=== PATIENT | male | born 1985 | race Caucasian/White ===

== ENCOUNTER 2020-08-08 14:37 | Emergency (ER) | payer MEDICAID, SELFPAY ==
[2020-08-08 14:51] VITALS: BP 121/59; PULSE 50; RESP 16; TEMP 36.6; O2SAT 100; BMI 30.3
[2020-08-08 15:10] VITALS: BP 113/60; PULSE 77; RESP 16; TEMP 36.8; O2SAT 96
[2020-08-08] MEDS: Ketorolac Tromethamine 15 MG/ML VIAL 30 MG IV (15:38)
[2020-08-08] MEDS: Metoclopramide HCl 10 MG/2 ML VIAL IVPUSH (15:40)
[2020-08-08] MEDS: diphenhydrAMINE HCL 50 MG/ML VIAL IVPUSH (15:40)
[2020-08-08] MEDS: 0.9 % Sodium Chloride 1,000 ML 999 ML IVCONT (15:43)
[2020-08-08 15:49] LABS: Basophils Percent Auto 0.2 % (0-2); Eosinophils Percent Auto 0.1 % (0-4); Hematocrit 43.8 % (42-52); Hemoglobin 14.3 g/dl (14.0-18.0); Imm Gran Abs Auto 0.01 X10*3/uL (0.00-0.03); Imm Gran Pct Auto 0.1 % (0.0-0.4); Lymphocytes Absolute Auto 0.7 X10*3/uL (1.2-4.9); Lymphocytes Percent Auto 7.7 % (20-40); MANUAL DIFF FLAG SCAN; Mean Corpuscular HGB Conc 32.6 g/dl (31.0-36.0); Mean Corpuscular Hemoglobin 27.9 pg (27.0-33.0); Mean Corpuscular Volume 85.5 fL (80-98); Monocytes Absolute Auto 0.2 X10*3/uL (0.1-1.2); Monocytes Percent Auto 2.5 % (2-11); Neutrophils Absolute Auto 7.9 X10*3/uL (2.0-8.3); Neutrophils Percent Auto 89.4 % (45-73); Platelet Count 222 X10*3/uL (160-400); Red Blood Count 5.12 X10*6/uL (4.60-5.80); Red Cell Distribution Width 13.9 % (11.0-16.0); SCAN SMEAR FLAG 1; White Blood Count 8.9 X10*3/uL (4.8-10.8)
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
[2020-08-08 15:56] LABS: INTERNATIONAL NORM RATIO 1.1 (0.9-1.1)
[2020-08-08 16:07] LABS: SLIDE REVIEW VERIFIED
[2020-08-08 16:14] LABS: Alanine Aminotransferase 16 U/L (0-40); Albumin Level 4.4 g/dL (3.5-5.0); Alkaline Phosphatase 50 U/L (39-117); Anion Gap 15 (12-20); Aspartate Amino Transferase 16 U/L (5-37); Bilirubin Total 0.6 mg/dL (0.0-1.0); Blood Urea Nitrogen 7 mg/dL (9-16); Calcium 9.5 mg/dL (8.4-10.2); Carbon Dioxide 24 mmol/L (22-29); Chloride 105 mmol/L (96-108); Creatinine Clr Calc Pharmacy 154.1; Estimated Glomerular Filt Rate > 60; Glucose Random 117 mg/dL (60-115); Magnesium 1.7 mg/dL (1.6-2.6); Potassium 3.6 mmol/L (3.3-5.1); Sodium 140 mmol/L (135-145); Total Protein 7.8 g/dL (6.5-8.0)
[2020-08-08 17:44] LABS: Glucose Urine UA NEG (NEG); Leukocyte Esterase Urine NEG (NEG); Nitrite Urine NEG (NEG); PH 6.5 (5.0-8.0); Urine Blood NEG (NEG); Urine Ketones 15 MG/DL (NEG); Urine Protein NEG (NEG-TRACE)
[2020-08-08 17:49] LABS: Appearance Urine CLEAR; Color Urine YELLOW
== END 2020-08-08 17:58 | disposition home or self-care (01) ==
PROVIDERS: Physician Assistant Medical; Emergency Provider Emergency Medicine; PCP Family Medicine
DX: G43.909 Migraine, unspecified, not intractable, without status migrainosus (principal); R11.2 Nausea with vomiting, unspecified; R19.7 Diarrhea, unspecified; Z79.899 Other long term (current) drug therapy
CPT/HCPCS: 36415; 80053; 81003; 83735; 85025; 85610; 96365; 96375; 99285; J1200; J1885; J2765

== ENCOUNTER 2021-01-17 00:24 | Emergency (ER) | payer MEDICAID, SELFPAY ==
[2021-01-17 00:37] VITALS: BP 142/80; PULSE 82; RESP 18; TEMP 36.7; O2SAT 100; BMI 28.8
--- NOTE | 2021-01-17 00:41 | ED_ITS ---
HPI - General Adult General Chief complaint: Nausea/Vomiting/Diarrhea Stated complaint: N/V X3 HOURS WITH FLU LIKE SYMPTOMS Time Seen by Provider: 01/17/21 00:36 Source: patient and EMS Mode of arrival: EMS Limitations: no limitations History of Present Illness HPI narrative: Patient comes emergency room complaining of 3 hours of flu-like symptoms, including generalized malaise , stuffy nose. Patient states that he took methadone around 8 in the morning, had 1 episode of vomiting at 22:00, states he thinks he threw up his methadone. Patient complaining of a headache for the last 2 hours, states he has not taken ibuprofen or Tylenol. Related Data Previous Rx's Medication Instructions Recorded diphenhydramine HCl 25 mg capsule 25 mg PO TID PRN #14 cap 08/08/20 (Benadryl) ketorolac 10 mg tablet 10 mg PO Q8H PRN #10 tab 08/08/20 metoclopramide HCl 10 mg tablet 10 mg PO Q6H PRN #15 tab 08/08/20 (Reglan) acetaminophen 650 mg 650 mg PO Q8H PRN #20 tab 01/17/21 tablet,extended release (Tylenol 8 Hour) metoclopramide HCl 5 mg tablet 5 mg PO BID PRN #10 tab 01/17/21 (Reglan) sumatriptan succinate 50 mg tablet 50 mg PO Q2-4H PRN #10 tab 01/17/21 Allergies Allergy/AdvReac Type Severity Reaction Status Date / Time No Known Allergies Allergy Verified 01/17/21 00:45 [No Known Allergies*] Review of Systems Review of Systems: Constitutional : No Weight loss, no fever, complaining of fatigue and generalized malaise ENT/Mouth : No Hearing loss, No Ear Pain, No Nasal Congestion, No Sinus Pain, No Hoarseness, No sore throat, No Rhinorrhea, No Swallowing Difficulty Eyes: No Eye Pain, No Swelling, No Redness, No Foreign Body, No Discharge, No Vision Changes Cardiovascular : No Chest Pain, No SOB, No Dyspnea on Exertion, No Orthopnea, No Edema, No Palpitations Respiratory : No Cough, No Sputum, No Wheezing, No Smoke Exposure, No Dyspnea Gastrointestinal : Of nausea and 1 episode of vomiting No Diarrhea, No Constipation, No abdominal Pain, No Hematochezia, No Melena Genitourinary : no irregular bleeding, No Dysuria, No Urinary Frequency, No Hematuria, No Urinary Incontinence, No Urgency, No Flank Pain, No Urinary Flow Changes, No Hesitancy Musculoskeletal : No joint pain, complaining of diffuse Myalgias, No Joint Swelling Skin : No Skin Lesions, No rash Neuro : No Weakness, No Numbness, No Paresthesias, No Loss of Consciousness, No Dizziness, complaining of a frontal Headache for 2 hours Psych : No Anxiety/Panic, No Depression, No SI/HI/AH/VH, No Social Issues, Heme/Lymph: No Bruising, No Bleeding,No Lymphadenopathy Endocrine : No Polyuria, No Polydipsia, No Temperature Intolerance [facility] Past Medical History Medical History (Updated 01/17/21 @ 01:22 by Yen Madrigal MD) Migraines No known health problems Social History Social History Alcohol intake: never Substance Use Type: Marijuana Advance Directives: No Advance Directives Information Provided: No Physical Exam Vital Signs: Vital Signs: Last Vital Signs Temp 98.0 F 01/17/21 00:37 Pulse 82 01/17/21 00:37 Resp 18 01/17/21 00:37 BP 142/80 H 01/17/21 00:37 Pulse Ox 100 01/17/21 00:37 Body Mass Index 28.8 Const: Other: Appearance: Alert. Oriented X3. No acute distress. Eyes: Pupils equal, round and reactive to light. ENT: Pharynx normal. Neck: Normal inspection. Neck supple. No lymph nodes noted. No crepitus CVS: Normal heart rate and rhythm. Pulses normal. Normal S1 and S2 Respiratory: No respiratory distress. Breath sounds normal. No Wheezing. No rales Abdomen: Soft and nontender. No rigidity. No distention. good BS x4 Skin: Skin warm and dry. Normal skin color. Normal skin turgor. Extremities: No lower extremity edema. No Lacerations. No Rash Neuro: Oriented X 3. No motor deficit. No sensory deficit. Moving all extermities. No slurred speech. Course Course Course Narrative: COVID test negative. Patient states that he used to take medication for migraines but does not remember what he used to take. Patient feeling better after 1 IM shot of Toradol and Phenergan. Medical Decision Making Lab Data Labs: Lab Results 01/17/21 Range/Units 00:51 COVID-19 (GIO) Negative (Negative) COVID-19 Clin Com See Note Discharge Plan Discharge Clinical Impression: Acute viral syndrome Headache, migraine Qualifiers: Migraine type: unspecified Intractability: not intractable Patient Disposition: Home, Self-Care Instructions: Migraine Headache (ED), Viral Syndrome (ED) Additional Instructions: Please follow-up with your primary care physician tomorrow. If you have any worsening or new symptoms, please return to the emergency room or call 911 Prescriptions: New metoclopramide HCl [Reglan] 5 mg tablet 5 mg PO BID PRN (Reason: nausea and vomiting) Qty: 10 RF: 0 sumatriptan succinate 50 mg tablet 50 mg PO Q2-4H PRN (Reason: migraine headache) Qty: 10 RF: 0 acetaminophen [Tylenol 8 Hour] 650 mg tablet extended release 650 mg PO Q8H PRN (Reason: pain) Qty: 20 RF: 0 No Action diphenhydramine HCl [Benadryl] 25 mg capsule 25 mg PO TID PRN (Reason: sleep) Qty: 14 RF: 0 ketorolac 10 mg tablet 10 mg PO Q8H PRN (Reason: pain) Qty: 10 RF: 0 metoclopramide HCl [Reglan] 10 mg tablet 10 mg PO Q6H PRN (Reason: nausea and vomiting) Qty: 15 RF: 0
[2021-01-17] MEDS: Metoclopramide HCl 10 MG/2 ML VIAL IM (01:10)
[2021-01-17] MEDS: Ketorolac Tromethamine 60 MG/2 ML VIAL IM (01:11)
[2021-01-17 01:12] LABS: COVID-19 Test Negative (Negative); IDNOW Serial# 9DD0AD1C
== END 2021-01-17 02:19 | disposition home or self-care (01) ==
PROVIDERS: Emergency Provider Emergency Medicine
DX: B34.9 Viral infection, unspecified (principal); G43.009 Migraine without aura, not intractable, without status migrainosus; Z20.822 Contact with and (suspected) exposure to COVID-19
CPT/HCPCS: 36415; 87635; 96372; 99283; 99284; J1885; J2765

== ENCOUNTER 2021-06-04 12:05 | Emergency (ER) | payer MEDICAID, SELFPAY ==
[2021-06-04 12:36] VITALS: BP 105/71; PULSE 79; RESP 17; O2SAT 99; BMI 29.0
[2021-06-04 13:04] LABS: COVID-19 Test Negative (Negative)
== END 2021-06-04 15:24 | disposition left against medical advice (07) ==
PROVIDERS: Emergency Provider Emergency Medicine; PCP Family Medicine
DX: R11.2 Nausea with vomiting, unspecified (principal); R19.7 Diarrhea, unspecified
CPT/HCPCS: 87635; 99282; 99283

== ENCOUNTER 2021-10-18 17:09 | Emergency (ER) | payer MEDICAID, SELFPAY ==
[2021-10-18 19:04] VITALS: BP 116/76; PULSE 50; RESP 16; TEMP 35.5; O2SAT 98; BMI 29.4
--- NOTE | 2021-10-18 19:38 | ED.MALEGU ---
HPI - Male Genitourinary General Chief complaint: Urogenital-Male Stated complaint: STD Time Seen by Provider: 10/18/21 19:31 Source: patient Mode of arrival: ambulatory Limitations: no limitations History of Present Illness HPI Narrative: 36-year-old male presents to the ER for evaluation of a possible STD exposure. He reports he had unprotected sex 2 weeks ago and just heard that this partner may have had a sexually transmitted infection, through his girlfriend. He believes that his girlfriend is just upset and is telling him that he was exposed to herpes. He currently has no symptoms. He would like to be tested and treated for possible STIs. No other complaints or concerns at this time. MD Complaint: possible STD exposure Onset (ago): unknown Relieving factors: none Exacerbating factors: none Associated symptoms: Reports denies other symptoms Related Data Sexually active: Yes Previous Rx's Medication Instructions Recorded diphenhydramine HCl 25 mg capsule 25 mg PO TID PRN sleep #14 caps 08/08/20 (Benadryl) ketorolac 10 mg tablet 10 mg PO Q8H PRN pain #10 tabs 08/08/20 metoclopramide HCl 10 mg tablet 10 mg PO Q6H PRN nausea and 08/08/20 (Reglan) vomiting #15 tabs acetaminophen 650 mg 650 mg PO Q8H PRN pain #20 tabs 01/17/21 tablet,extended release (Tylenol 8 Hour) metoclopramide HCl 5 mg tablet 5 mg PO BID PRN nausea and 01/17/21 (Reglan) vomiting #10 tabs sumatriptan succinate 50 mg tablet 50 mg PO Q2-4H PRN migraine 01/17/21 headache #10 tabs Allergies Allergy/AdvReac Type Severity Reaction Status Date / Time No Known Allergies Allergy Verified 01/17/21 00:45 [No Known Allergies*] Review of Systems Review of Systems: Constitutional: No Fever, No Chills ENT/Mouth: No sore throat, No Rhinorrhea, No Swallowing Difficulty Eyes: No Eye Pain, No Swelling, No Redness Cardiovascular: No Chest Pain, No SOB Respiratory: No Cough Gastrointestinal: No Nausea, No Vomiting, No Diarrhea, No abdominal Pain Genitourinary: No Dysuria, No Urinary Frequency, No Hematuria, No genital lesions Musculoskeletal: No joint pain, No Myalgias Skin: No Skin Lesions, No rash Neuro: No Weakness, No Numbness, No Dizziness, No Headache : no penile lesions, rashes PMFSH Past Medical History Medical History (Updated 10/18/21 @ 20:02 by VASU Briseno) Migraines No known health problems Social History Social History Alcohol intake: never Substance Use Type: Marijuana Advance Directives: No Advance Directives Information Provided: No Physical Exam Vital Signs: Vital Signs: Last Vital Signs Temp 96 F L 10/18/21 19:04 Pulse 50 10/18/21 19:04 Resp 16 10/18/21 19:04 BP 116/76 10/18/21 19:04 Pulse Ox 98 10/18/21 19:04 O2 Del Method 10/18/21 19:04 BMI result Body Mass Index 29.4 Appearance: Alert. Oriented X3. No acute distress. Eyes: Pupils equal, round and reactive to light. ENT: Pharynx normal. Neck: Normal inspection. Neck supple. CVS: Normal heart rate and rhythm. Pulses normal. S1S2 regular. Respiratory: No respiratory distress. Breath sounds normal. Lungs clear to auscultation bilaterally. Abdomen: Soft and nontender. +BS x4 Skin: Skin warm and dry. Normal skin color. Normal skin turgor. No rashes. Extremities: No lower extremity edema. : uncircumsized male with no penile lesions, rashes. No urethral drainage from the meatus. No testicular pain, swelling or lesions. Neuro: Oriented X 3. No motor deficit. No sensory deficit. Course Course Course Narrative: [id number] presents to the ED today due to ?STI exposure. He states that he has sexual intercourse 2 weeks ago with another woman, who he was told by his current partner that she has herpes. Patient is asymptomatic at this time. Dirty catch urine collected for GC/Chlamydia testing. Patient declines prophylactic tx at this time as he is asymptomatic. Informed him that we will call with any abnormal results. Patient given tap[facility] numbers if he wants to get additional testing. Patient understands and agrees with this plan. Critical Care Time Critical Care Time Critical Care Time: No Discharge Plan Discharge Clinical Impression: Possible exposure to STD Patient Disposition: Home, Self-Care Instructions: Sexually Transmitted Diseases (ED), Safe Sex Practices (ED) Additional Instructions: At this time there is no evidence of active herpes. If your Gonorrhea or Chlamydia test comes back positive we will call you and start you on treatment. Recommend following up with a local [facility] for comprehensive sexually transmitted infection evaluation. If you develop any symptoms of STD call your doctor or come back to the ER for further evaluation. Prescriptions: No Action diphenhydramine HCl [Benadryl] 25 mg capsule 25 mg PO TID PRN (Reason: sleep) Qty: 14 0RF ketorolac 10 mg tablet 10 mg PO Q8H PRN (Reason: pain) Qty: 10 0RF Rx Instructions: Given 1st dose in the ED metoclopramide HCl [Reglan] 10 mg tablet 10 mg PO Q6H PRN (Reason: nausea and vomiting) Qty: 15 0RF metoclopramide HCl [Reglan] 5 mg tablet 5 mg PO BID PRN (Reason: nausea and vomiting) Qty: 10 0RF sumatriptan succinate 50 mg tablet 50 mg PO Q2-4H PRN (Reason: migraine headache) Qty: 10 0RF Rx Instructions: do not exceed 4 doses per 24 hrs acetaminophen [Tylenol 8 Hour] 650 mg tablet extended release 650 mg PO Q8H PRN (Reason: pain) Qty: 20 0RF Interventions: ED Discharge Assessment Last Done: 10/18/21 20:03 Discharge Date/Time: 10/18/21 20:03
[2021-10-19 11:53] LABS: CT PCR NOT DETECTED (Not Detect.); NG PCR NOT DETECTED (Not Detect.)
== END 2021-10-18 20:03 | disposition home or self-care (01) ==
PROVIDERS: Emergency Provider Emergency Medicine; PCP Family Medicine
DX: Z20.2 Contact with and (suspected) exposure to infections with a predominantly sexual mode of transmission (principal)
CPT/HCPCS: 87491; 87591; 99282; 99283

== ENCOUNTER 2021-11-21 06:33 | Emergency (ER) | payer MEDICAID, SELFPAY ==
[2021-11-21 06:48] VITALS: BP 122/71; PULSE 70; RESP 14; O2SAT 97; BMI 28.8
[2021-11-21 06:59] VITALS: BP 125/89; PULSE 78; RESP 18; O2SAT 96
--- NOTE | 2021-11-21 07:07 | ED_ITS ---
HPI - Nausea/Vomiting/Diarrhea General Chief complaint: Nausea/Vomiting/Diarrhea Stated complaint: vomiting, cough Time Seen by Provider: 11/21/21 07:06 Source: patient Mode of arrival: ambulatory Limitations: no limitations History of Present Illness HPI Narrative: 36-year-old male came in for evaluation of abdominal pain, vomiting, coughing, headache. Patient's symptoms started since yesterday after eating a sandwich at the [employer] started to have dry coughing that led to nausea and vomiting, patient had a 1 time loose diarrhea, patient is also complaining of headache and dry cough. No sick contact, no exposure to sick contacts, no recent travel, last vomit was this morning patient started feeling better but patient is concerned of dehydration. Related Data Previous Rx's Medication Instructions Recorded diphenhydramine HCl 25 mg capsule 25 mg PO TID PRN sleep #14 caps 08/08/20 (Benadryl) ketorolac 10 mg tablet 10 mg PO Q8H PRN pain #10 tabs 08/08/20 metoclopramide HCl 10 mg tablet 10 mg PO Q6H PRN nausea and 08/08/20 (Reglan) vomiting #15 tabs acetaminophen 650 mg 650 mg PO Q8H PRN pain #20 tabs 01/17/21 tablet,extended release (Tylenol 8 Hour) metoclopramide HCl 5 mg tablet 5 mg PO BID PRN nausea and 01/17/21 (Reglan) vomiting #10 tabs sumatriptan succinate 50 mg tablet 50 mg PO Q2-4H PRN migraine 01/17/21 headache #10 tabs Allergies Allergy/AdvReac Type Severity Reaction Status Date / Time No Known Allergies Allergy Verified 01/17/21 00:45 [No Known Allergies*] Review of Systems Review of Systems: All other systems are reviewed and are negative Constitutional: Reports as per HPI and Reports no additional constitutional complaints Eyes: Reports as per HPI and Reports no additional eye complaints Reports system reviewed and no additional complaints, except as documented Cardiovascular: Reports as per HPI and Reports no additional cardiovascular complaints Respiratory: Reports as per HPI and Reports no additional respiratory complaints Gastrointestinal: Reports as per HPI and Reports no additional gastrointestinal complaints Genitourinary: Reports no additional female genitourinary complaints Musculoskeletal: Reports no additional musculoskeletal complaints Skin/Breast: Reports system reviewed and no additional complaints, except as docu Psychiatric: Reports no additional psychiatric complaints Endocrine: Reports no additional endocrine complaints Hematologic/Lymphatic: Reports no additional hematologic/lymphatic complaints Allergic/Immunologic: Reports no additional allergic/immunologic complaints Reports system reviewed and no additional complaints, except as documented and Reports Abnormal speech present [facility] Past Medical History Medical History Migraines No known health problems Social History Social History Alcohol intake: never Patient Tobacco Use Status: Current everyday Tobacco user Use of substances other than those prescribed or required for medical reasons: No Substance Use Type: Marijuana Advance Directives: No Advance Directives Information Provided: No Physical Exam Vital Signs: Vital Signs: Last Vital Signs Pulse 78 11/21/21 06:59 Resp 18 11/21/21 06:59 BP 125/89 11/21/21 06:59 Pulse Ox 96 11/21/21 06:59 O2 Del Method 11/21/21 06:59 BMI result Body Mass Index 28.8 Vital signs have been reviewed as appeared to be correct. Blood pressure normal. Heart rate normal. Respiration rate normal. Temperature normal. Oxygen saturation normal. Appearance: Alert. Oriented X3. No acute distress. Head: Normal external exam. Normocephalic. Atraumatic. No Cheney signs noted. No raccoon eyes noted Eyes: PERRLA. EOMI. Conjunctiva and sclera normal. Eyelids normal. ENT: TM's Normal. Pharynx normal. Uvula midline. Moist mucous membranes. No trismus noted. No drooling noted. No muffled voice noted. Neck: Normal inspection. Neck supple. FROM. No adenopathy. Thyroid Normal. No meningeal signs. No neck mass noted. CVS: Normal heart rate and rhythm. Heart sound normal. No murmurs noted. Pulses normal throughout. Respiratory: No respiratory distress. Painless inspiration. Breath sounds normal. No wheezes/rales/rhonchi noted. Chest nontender. No accessory muscle usage noted or decreased air movement noted. Abdomen: Soft and nontender. Bowel sounds normal in all 4 quadrants. No distention noted. No organomegaly noted. No visible injury noted. Back: No CVA tenderness. Full range of motion noted. Skin: Skin warm and dry. Normal skin color. Normal skin turgor. No rashes/lesions/lacerations noted. Extremities: No lower extremity edema. Extremities exhibit normal range of motion. Extremities nontender. Neuro: Oriented X 3. Cranial nerve exam: II-XII are grossly intact No motor deficit. No sensory deficit. Reflexes normal. Course Course Course Narrative: 36-year-old male came in for evaluation of epigastric pain after eating she is further from [facility], patient's symptoms is improving in the emergency department, able to tolerate p.o. intake, labs and physical exam is nonrevealing. Repeat abdominal exam shows no tenderness, no guarding, no rebound tenderness. Patient was instructed to return if symptoms is worsening. MDM - Nausea/Vomiting/Diarrhea Lab Data Attestation: I reviewed the patient's lab results. Result diagrams: 11/21/21 07:54 11/21/21 07:54 Labs: Lab Results 11/21/21 11/21/21 11/21/21 Range/Units 07:24 07:54 07:54 WBC 5.4 (4.8-10.8) X10*3/uL RBC 4.20 L (4.60-5.80) X10*6/uL Hgb 12.0 L (14.0-18.0) g/dl Hct 35.3 L (42.0-52.0) % MCV 84.0 (80.0-98.0) fL MCH 28.6 (27.0-33.0) pg MCHC 34.0 (31.0-36.0) g/dl RDW 13.5 (11.0-16.0) % Plt Count 182 (160-400) X10*3/uL MPV 9.5 (9.4-12.4) fL Immature Gran % (Auto) 0.2 (0.0-0.4) % Neut % (Auto) 57.0 (45-73) % Lymph % (Auto) 32.1 (20-40) % [place] % (Auto) 8.2 (2-11) % Eos % (Auto) 1.9 (0-4) % Baso % (Auto) 0.6 (0-2) % Lymph # (Auto) 1.7 (1.2-4.9) X10*3/uL [place] # (Auto) 0.4 (0.1-1.2) X10*3/uL Eos # (Auto) 0.1 (0.0-0.4) X10*3/uL Baso # (Auto) 0.0 (0.0-0.2) X10*3/uL Abs Immat Gran (auto) 0.01 (0.00-0.03) X10*3/uL Absolute Neuts (auto) 3.1 (2.0-8.3) x10*3/uL Absolute Nucleated RBC 0.000 (0.0-0.012) X10*3/uL Nucleated RBC % (auto) 0.0 (0.0-0.2) /100WBC Sodium 141 (135-145) mmol/L Potassium 4.0 (3.3-5.1) mmol/L Chloride 106 (96-108) mmol/L Carbon Dioxide 27 (22-29) mmol/L Anion Gap 12 (12-20) BUN 9 (9-16) mg/dL Creatinine 0.84 (0.5-1.4) mg/dL Estim Creat Clear Calc 147.5 Estimated GFR > 60 Random Glucose 97 (60-115) mg/dL Calcium 9.1 (8.4-10.2) mg/dL Total Bilirubin 0.3 (0.0-1.0) mg/dL Direct Bilirubin < 0.2 (0.0-0.5) mg/dL AST 19 (5-37) U/L ALT 18 (0-40) U/L Alkaline Phosphatase 46 (39-117) U/L Total Protein 6.6 (6.5-8.0) g/dL Albumin 3.7 (3.5-5.0) g/dL Lipase 19 (8-78) U/L Urine Color Dark Yellow Urine Appearance Clear Urine pH 6.0 (5.0-8.0) Ur Specific [place] >= 1.030 H (1.005-1.025) Urine Protein Negative (Neg-Trace) mg/dL Urine Glucose (UA) Negative (Negative) mg/dL Urine Ketones Trace (Negative) mg/dL Urine Blood Negative (Negative) Urine Nitrite Negative (Negative) Ur Leukocyte Esterase Negative (Negative) Influenza Type A (PCR) (Negative) Influenza Type B (PCR) (Negative) RSV RNA Qual (PCR) (Negative) SARS-CoV-2 RNA (RT-PCR) (Negative) 11/21/21 Range/Units 07:54 WBC (4.8-10.8) X10*3/uL RBC (4.60-5.80) X10*6/uL Hgb (14.0-18.0) g/dl Hct (42.0-52.0) % MCV (80.0-98.0) fL MCH (27.0-33.0) pg MCHC (31.0-36.0) g/dl RDW (11.0-16.0) % Plt Count (160-400) X10*3/uL MPV (9.4-12.4) fL Immature Gran % (Auto) (0.0-0.4) % Neut % (Auto) (45-73) % Lymph % (Auto) (20-40) % [place] % (Auto) (2-11) % Eos % (Auto) (0-4) % Baso % (Auto) (0-2) % Lymph # (Auto) (1.2-4.9) X10*3/uL [place] # (Auto) (0.1-1.2) X10*3/uL Eos # (Auto) (0.0-0.4) X10*3/uL Baso # (Auto) (0.0-0.2) X10*3/uL Abs Immat Gran (auto) (0.00-0.03) X10*3/uL Absolute Neuts (auto) (2.0-8.3) x10*3/uL Absolute Nucleated RBC (0.0-0.012) X10*3/uL Nucleated RBC % (auto) (0.0-0.2) /100WBC Sodium (135-145) mmol/L Potassium (3.3-5.1) mmol/L Chloride (96-108) mmol/L Carbon Dioxide (22-29) mmol/L Anion Gap (12-20) BUN (9-16) mg/dL Creatinine (0.5-1.4) mg/dL Estim Creat Clear Calc Estimated GFR Random Glucose (60-115) mg/dL Calcium (8.4-10.2) mg/dL Total Bilirubin (0.0-1.0) mg/dL Direct Bilirubin (0.0-0.5) mg/dL AST (5-37) U/L ALT (0-40) U/L Alkaline Phosphatase (39-117) U/L Total Protein (6.5-8.0) g/dL Albumin (3.5-5.0) g/dL Lipase (8-78) U/L Urine Color Urine Appearance Urine pH (5.0-8.0) Ur Specific [place] (1.005-1.025) Urine Protein (Neg-Trace) mg/dL Urine Glucose (UA) (Negative) mg/dL Urine Ketones (Negative) mg/dL Urine Blood (Negative) Urine Nitrite (Negative) Ur Leukocyte Esterase (Negative) Influenza Type A (PCR) NEGATIVE (Negative) Influenza Type B (PCR) NEGATIVE (Negative) RSV RNA Qual (PCR) NEGATIVE (Negative) SARS-CoV-2 RNA (RT-PCR) NEGATIVE (Negative) Discharge Plan Discharge Clinical Impression: Gastroenteritis Patient Disposition: Home, Self-Care Instructions: Gastroenteritis (ED) Prescriptions: No Action diphenhydramine HCl [Benadryl] 25 mg capsule 25 mg PO TID PRN (Reason: sleep) Qty: 14 0RF ketorolac 10 mg tablet 10 mg PO Q8H PRN (Reason: pain) Qty: 10 0RF Rx Instructions: Given 1st dose in the ED metoclopramide HCl [Reglan] 10 mg tablet 10 mg PO Q6H PRN (Reason: nausea and vomiting) Qty: 15 0RF metoclopramide HCl [Reglan] 5 mg tablet 5 mg PO BID PRN (Reason: nausea and vomiting) Qty: 10 0RF sumatriptan succinate 50 mg tablet 50 mg PO Q2-4H PRN (Reason: migraine headache) Qty: 10 0RF Rx Instructions: do not exceed 4 doses per 24 hrs acetaminophen [Tylenol 8 Hour] 650 mg tablet extended release 650 mg PO Q8H PRN (Reason: pain) Qty: 20 0RF Referrals: Katherine Martinez MD [Primary Care Provider] - Stand Alone Forms: Work/School Release
[2021-11-21 07:33] LABS: Appearance Urine Clear; Color Urine Dark Yellow; Glucose Urine UA Negative (Negative); Leukocyte Esterase Urine Negative (Negative); Nitrite Urine Negative (Negative); Specific Gravity - Urine >= 1.030 (1.005-1.025); Urine Blood Negative (Negative); Urine Ketones Trace mg/dL (Negative); Urine Protein Negative (Neg-Trace)
[2021-11-21 07:58] LABS: MANUAL DIFF FLAG NO
[2021-11-21 08:00] LABS: Basophils Percent Auto 0.6 % (0-2); Eosinophils Absolute Auto 0.1 X10*3/uL (0.0-0.4); Eosinophils Percent Auto 1.9 % (0-4); Hematocrit 35.3 % (42.0-52.0); Imm Gran Abs Auto 0.01 X10*3/uL (0.00-0.03); Imm Gran Pct Auto 0.2 % (0.0-0.4); Lymphocytes Absolute Auto 1.7 X10*3/uL (1.2-4.9); Lymphocytes Percent Auto 32.1 % (20-40); Mean Corpuscular Hemoglobin 28.6 pg (27.0-33.0); Mean Platelet Volume 9.5 fL (9.4-12.4); Monocytes Absolute Auto 0.4 X10*3/uL (0.1-1.2); Monocytes Percent Auto 8.2 % (2-11); Neutrophils Absolute Auto 3.1 x10*3/uL (2.0-8.3); Platelet Count 182 X10*3/uL (160-400); Red Cell Distribution Width 13.5 % (11.0-16.0); White Blood Count 5.4 X10*3/uL (4.8-10.8)
[2021-11-21] MEDS: ondansetron HCL 4 MG/2 ML VIAL IVPUSH (08:01)
[2021-11-21] MEDS: 0.9 % Sodium Chloride 1,000 ML 999 ML IV (08:01)
[2021-11-21] MEDS: Famotidine/PF 20 MG/2 ML VIAL IVPUSH (08:01)
[2021-11-21] MEDS: Magnesium Hydrox/Alum Hydrox 30 ML ORAL.SUSP PO (08:01)
[2021-11-21 08:28] LABS: Alanine Aminotransferase 18 U/L (0-40); Albumin Level 3.7 g/dL (3.5-5.0); Alkaline Phosphatase 46 U/L (39-117); Anion Gap 12 (12-20); Aspartate Amino Transferase 19 U/L (5-37); Bilirubin Direct < 0.2 mg/dL (0.0-0.5); Bilirubin Total 0.3 mg/dL (0.0-1.0); Blood Urea Nitrogen 9 mg/dL (9-16); Calcium 9.1 mg/dL (8.4-10.2); Carbon Dioxide 27 mmol/L (22-29); Chloride 106 mmol/L (96-108); Creatinine Clr Calc Pharmacy 147.5; Estimated Glomerular Filt Rate > 60; Glucose Random 97 mg/dL (60-115); Lipase 19 U/L (8-78); Sodium 141 mmol/L (135-145); Total Protein 6.6 g/dL (6.5-8.0)
[2021-11-21 08:46] LABS: Influenza A PCR NEGATIVE (Negative); Influenza B PCR NEGATIVE (Negative); Resp Syncy Virus RNA Qual PCR NEGATIVE (Negative); SARS COV2 PCR INHOUSE NEGATIVE (Negative)
== END 2021-11-21 09:13 | disposition home or self-care (01) ==
PROVIDERS: Emergency Provider Emergency Medicine; PCP Family Medicine
DX: K52.9 Noninfective gastroenteritis and colitis, unspecified (principal); Z20.822 Contact with and (suspected) exposure to COVID-19; F17.200 Nicotine dependence, unspecified, uncomplicated; F12.90 Cannabis use, unspecified, uncomplicated
CPT/HCPCS: 0241U; 80048; 80076; 81003; 83690; 85025; 96374; 96375; 99284; 99285; J2405

== ENCOUNTER 2022-01-17 07:53 | Emergency (ER) | payer MEDICAID, SELFPAY ==
--- NOTE | ~2022-01-17 | CT_ITS ---
EXAMINATION: CT ABDOMEN AND PELVIS WITHOUT CONTRAST CLINICAL INFORMATION: Cramping and constipation with nausea and vomiting. COMPARISON: None TECHNIQUE: Multidetector volumetric imaging was performed from the superior aspect of the liver through the pubic symphysis. Sagittal and coronal reformatted images were obtained on the technologist's workstation. Lack of intravenous and oral contrast limits visceral evaluation. This CT examination was performed using dose optimization techniques as appropriate, variously including the following: *Automated exposure control *Adjustment of mA and/or kV according to patient size (this includes techniques or standardized protocols for targeted exams where dose is matched to indication/reason for exam; i.e. extremities or head) *Use of iterative reconstruction technique DLP: 621 mGy-cm FINDINGS: LUNG BASES: The visualized lung bases are unremarkable. LIVER, GALLBLADDER, AND BILIARY TREE: Unremarkable. PANCREAS: Unremarkable. SPLEEN: Unremarkable. ADRENAL GLANDS: Unremarkable. KIDNEYS AND URETERS: The kidneys are normal in size, shape, and attenuation. No hydronephrosis, hydroureter, or calculi seen. No perinephric stranding. BLADDER: Unremarkable. GASTROINTESTINAL TRACT: The stomach, small bowel and appendix are unremarkable. The colon is mild to moderate stool throughout without other abnormality. The rectum is unremarkable. ABDOMINAL WALL: No significant hernia is appreciated. LYMPH NODES: Normal. VASCULAR: Unremarkable. PELVIC VISCERA: Unremarkable. OSSEOUS STRUCTURES: Unremarkable. CT/CT abdomen pelvis wo IV con IMPRESSION: 1. No acute intra-abdominal/pelvic abnormality to explain the patient's symptoms. 2. Mild to moderate colonic stool burden without other significant abnormality. Fleischner guidelines were followed.
--- NOTE | ~2022-01-17 | XR_ITS ---
EXAMINATION: XR CHEST CLINICAL INFORMATION: Cough, pain. COMPARISON: None TECHNIQUE: 2 views of the chest were obtained. FINDINGS: No significant abnormality is noted involving the heart, lungs, mediastinum, bony thorax or soft tissues. XR/XR chest 2V IMPRESSION: No acute cardiopulmonary process.
[2022-01-17 07:59] VITALS: BP 121/94; PULSE 81; RESP 18; TEMP 36.4; O2SAT 97; BMI 29.0
[2022-01-17 08:09] LABS: MANUAL DIFF FLAG NO
[2022-01-17 08:11] LABS: Basophils Percent Auto 0.5 % (0-2); Eosinophils Absolute Auto 0.1 X10*3/uL (0.0-0.4); Eosinophils Percent Auto 1.3 % (0-4); Hematocrit 35.4 % (42.0-52.0); Hemoglobin 11.5 g/dl (14.0-18.0); Imm Gran Abs Auto 0.02 X10*3/uL (0.00-0.03); Imm Gran Pct Auto 0.3 % (0.0-0.4); Lymphocytes Absolute Auto 1.8 X10*3/uL (1.2-4.9); Lymphocytes Percent Auto 24.1 % (20-40); Mean Corpuscular HGB Conc 32.5 g/dl (31.0-36.0); Mean Corpuscular Hemoglobin 27.9 pg (27.0-33.0); Mean Corpuscular Volume 85.9 fL (80.0-98.0); Mean Platelet Volume 9.4 fL (9.4-12.4); Monocytes Absolute Auto 0.5 X10*3/uL (0.1-1.2); Monocytes Percent Auto 7.2 % (2-11); Neutrophils Percent Auto 66.6 % (45-73); Platelet Count 221 X10*3/uL (160-400); Red Blood Count 4.12 X10*6/uL (4.60-5.80); Red Cell Distribution Width 14.1 % (11.0-16.0); White Blood Count 7.5 X10*3/uL (4.8-10.8)
[2022-01-17 08:21] LABS: Strep A Nucleic Acid Negative (Negative)
[2022-01-17 08:25] LABS: COVID-19 Test Negative (Negative); IDNOW Serial# 9DB6401D
[2022-01-17 08:29] LABS: Alanine Aminotransferase 11 U/L (0-40); Albumin Level 3.9 g/dL (3.5-5.0); Alkaline Phosphatase 40 U/L (39-117); Anion Gap 14 (12-20); Aspartate Amino Transferase 16 U/L (5-37); Bilirubin Direct < 0.2 mg/dL (0.0-0.5); Bilirubin Total 0.3 mg/dL (0.0-1.0); Blood Urea Nitrogen 12 mg/dL (9-16); Calcium 9.1 mg/dL (8.4-10.2); Carbon Dioxide 24 mmol/L (22-29); Chloride 109 mmol/L (96-108); Creatinine Clr Calc Pharmacy 151.7; Estimated Glomerular Filt Rate > 60; Glucose Random 97 mg/dL (60-115); Lipase 18 U/L (8-78); Sodium 143 mmol/L (135-145); Total Protein 6.9 g/dL (6.5-8.0)
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
[2022-01-17 09:54] LABS: Monotest Negative (Negative)
[2022-01-17 11:13] LABS: Appearance Urine Cloudy; Color Urine Yellow; Glucose Urine UA Negative (Negative); Leukocyte Esterase Urine Negative (Negative); Nitrite Urine Negative (Negative); PH 6.5 (5.0-9.0); Urine Blood Negative (Negative); Urine Ketones Negative (Negative); Urine Protein Negative (Neg-Trace)
== END 2022-01-17 11:01 | disposition home or self-care (01) ==
PROVIDERS: Physician Assistant Medical; Emergency Provider Emergency Medicine Emergency Medical Services; PCP Family Medicine
DX: J06.9 Acute upper respiratory infection, unspecified (principal); J02.8 Acute pharyngitis due to other specified organisms; K59.00 Constipation, unspecified; R10.2 Pelvic and perineal pain; F17.200 Nicotine dependence, unspecified, uncomplicated; Z79.899 Other long term (current) drug therapy; Z20.822 Contact with and (suspected) exposure to COVID-19; Z71.6 Tobacco abuse counseling
CPT/HCPCS: 71046; 74176; 80048; 80076; 81003; 83690; 85025; 86308; 87635; 87651; 99282; 99284

== ENCOUNTER 2022-04-04 10:56 | Emergency (ER) | payer MEDICAID, SELFPAY ==
[2022-04-04 11:01] VITALS: BP 128/78; PULSE 98; RESP 17; TEMP 36.6; O2SAT 98; BMI 31.5
--- NOTE | 2022-04-04 11:09 | ED_ITS ---
HPI - General Adult General Chief complaint: General Medical Stated complaint: N/V/D Dental pain Related Data Previous Rx's Medication Instructions Recorded diphenhydramine HCl 25 mg capsule 25 mg PO TID PRN sleep #14 caps 08/08/20 (Benadryl) ketorolac 10 mg tablet 10 mg PO Q8H PRN pain #10 tabs 08/08/20 metoclopramide HCl 10 mg tablet 10 mg PO Q6H PRN nausea and 08/08/20 (Reglan) vomiting #15 tabs acetaminophen 650 mg 650 mg PO Q8H PRN pain #20 tabs 01/17/21 tablet,extended release (Tylenol 8 Hour) metoclopramide HCl 5 mg tablet 5 mg PO BID PRN nausea and 01/17/21 (Reglan) vomiting #10 tabs sumatriptan succinate 50 mg tablet 50 mg PO Q2-4H PRN migraine 01/17/21 headache #10 tabs amoxicillin 875 mg-potassium 1 tab PO BID 10 days #20 tabs 01/17/22 clavulanate 125 mg tablet docusate sodium 50 mg capsule 50 mg PO BID Constipation #14 caps 01/17/22 (Colace Clear) ondansetron 4 mg disintegrating 4 mg PO Q8H Nausea and vomiting 01/17/22 tablet #14 tabs polyethylene glycol 3350 17 gram 17 g PO BID Constipation #14 ea 01/17/22 oral powder packet (Miralax) Allergies Allergy/AdvReac Type Severity Reaction Status Date / Time No Known Allergies Allergy Verified 01/17/21 00:45 [No Known Allergies*] [facility] Past Medical History Medical History Migraines No known health problems Social History Social History Alcohol intake: never Patient Tobacco Use Status: Current everyday Tobacco user Substance Use Type: Marijuana Advance Directives: No Advance Directives Information Provided: Yes Physical Exam ED Vital Signs: Vital Signs - 24 hr 04/04/22 11:01 Temperature 98 F Pulse Rate 98 Respiratory Rate 17 Blood Pressure 128/78 Pulse Oximetry 98 Oxygen Delivery Method Room Air BMI result Body Mass Index 31.5 Course Course Course Narrative: RME - 36 yo male with 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 Due to get extraction on 04/07 but pain is worse. Also with N/V x1 today, runny nose and congestion. Recently had the flu. Nontoxic appearing, airway is patent. No palpable abscess but dentition very poor. Will swab for COVID. Stable to go back to waiting room until treatment room available. Medical Decision Making Lab Data Labs: Lab Results 04/04/22 04/04/22 Range/Units 11:08 12:05 COVID-19 (GIO) Negative (Negative) COVID-19 Clin Com See Note Influenza Type A (CRISTINA) Negative (Negative) Influenza Type B (CRISTINA) Negative (Negative) Influenza A & B Note See Note Discharge Plan Discharge Clinical Impression: Acute viral syndrome Patient Disposition: Home, Self-Care Instructions: Viral Syndrome (ED) Additional Instructions: Your testing today for COVID-19 and influenza were both negative. As discussed, this is most likely a viral infection causing your symptoms. Please be sure to rest, drink plenty of fluids, and follow a bland diet. Introduce a bland diet including crackers, bananas, rice, soup, toast, and boiled vegetables. This may progress to plain baked or boiled chicken or turkey. Avoid dairy products or foods high in fat or grease. If you still have symptoms in 2-3 days you should consider retesting for COVID- 19 Follow-up with your primary care provider as needed for persistent symptoms You may return to emergency department any new or worsening symptoms or concerns. Prescriptions: No Action diphenhydramine HCl [Benadryl] 25 mg capsule 25 mg PO TID PRN (Reason: sleep) Qty: 14 0RF ketorolac 10 mg tablet 10 mg PO Q8H PRN (Reason: pain) Qty: 10 0RF Rx Instructions: Given 1st dose in the ED metoclopramide HCl [Reglan] 10 mg tablet 10 mg PO Q6H PRN (Reason: nausea and vomiting) Qty: 15 0RF amoxicillin-pot clavulanate 875-125 mg tablet 1 tab PO BID 10 Days Qty: 20 0RF Colace Clear 50 mg capsule 50 mg PO BID Qty: 14 0RF polyethylene glycol 3350 [Miralax] 17 gram powder in packet 17 g PO BID Qty: 14 0RF ondansetron 4 mg tablet,disintegrating 4 mg PO Q8H Qty: 14 0RF metoclopramide HCl [Reglan] 5 mg tablet 5 mg PO BID PRN (Reason: nausea and vomiting) Qty: 10 0RF sumatriptan succinate 50 mg tablet 50 mg PO Q2-4H PRN (Reason: migraine headache) Qty: 10 0RF Rx Instructions: do not exceed 4 doses per 24 hrs acetaminophen [Tylenol 8 Hour] 650 mg tablet extended release 650 mg PO Q8H PRN (Reason: pain) Qty: 20 0RF Referrals: Katherine Martinez MD [Primary Care Provider] - Stand Alone Forms: Work/School Release Interventions: ED Discharge Assessment Last Done: 04/04/22 13:34 Discharge Date/Time: 04/04/22 13:34
--- NOTE | 2022-04-04 11:13 | PC.NURSE ---
swab obtained sent to lab
[2022-04-04 11:46] LABS: COVID-19 Test Negative (Negative); IDNOW Serial# 55D5AD1C
--- NOTE | 2022-04-04 12:03 | ED_ITS ---
HPI - URI/Sore Throat General Chief Complaint: General Medical Stated Complaint: N/V/D Dental pain Source: patient Mode of arrival: ambulatory Limitations: no limitations History of Present Illness HPI Narrative: Patient is a 36-year-old male who presents to the emergency department for evaluation of viral symptoms. He states that he awoke this morning nausea vomiting diarrhea productive cough and nasal congestion. Has vomited once, diarrhea once. Reports yellow phlegm with cough. Yesterday he was feeling well. Denies any known sick contacts. Has no associated abdominal pain, bloody or dark stools, bloody emesis, or genitourinary symptoms. Reports that he tested positive for influenza at the end of February. His work is requesting testing for COVID-19. Additionally he expresses right-sided dental pain, without any swelling, drainage, foul taste mouth, fevers, chills. He has an appointment with his dental provider in 3 days to have extraction as he has multiple dental caries and fractures to the molars in this area. Related Data Previous Rx's Medication Instructions Recorded diphenhydramine HCl 25 mg capsule 25 mg PO TID PRN sleep #14 caps 08/08/20 (Benadryl) ketorolac 10 mg tablet 10 mg PO Q8H PRN pain #10 tabs 08/08/20 metoclopramide HCl 10 mg tablet 10 mg PO Q6H PRN nausea and 08/08/20 (Reglan) vomiting #15 tabs acetaminophen 650 mg 650 mg PO Q8H PRN pain #20 tabs 01/17/21 tablet,extended release (Tylenol 8 Hour) metoclopramide HCl 5 mg tablet 5 mg PO BID PRN nausea and 01/17/21 (Reglan) vomiting #10 tabs sumatriptan succinate 50 mg tablet 50 mg PO Q2-4H PRN migraine 01/17/21 headache #10 tabs amoxicillin 875 mg-potassium 1 tab PO BID 10 days #20 tabs 01/17/22 clavulanate 125 mg tablet docusate sodium 50 mg capsule 50 mg PO BID Constipation #14 caps 01/17/22 (Colace Clear) ondansetron 4 mg disintegrating 4 mg PO Q8H Nausea and vomiting 01/17/22 tablet #14 tabs polyethylene glycol 3350 17 gram 17 g PO BID Constipation #14 ea 01/17/22 oral powder packet (Miralax) Allergies Allergy/AdvReac Type Severity Reaction Status Date / Time No Known Allergies Allergy Verified 01/17/21 00:45 [No Known Allergies*] Review of Systems Review of Systems: Constitutional: No fever. No chills. No weakness. No fatigue. ENT/ Mouth: No Ear Pain, positive Nasal Congestion, no sore throat, No Rhinorrhea, No Swallowing Difficulty. Positive dental pain Skin: No rash or itching. Cardiovascular: No chest pain. No palpitations. Respiratory: No shortness of breath. Positive cough. No sputum production. Gastrointestinal: Positive nausea. Positive vomiting. Positive diarrhea. No abdominal pain. Genitourinary: No burning micturition. No urinary frequency. Neurologic: No headache. No dizziness. No syncope. No numbness or tingling in the extremities. Musculoskeletal: No muscle pain. No back pain. No joint pain or stiffness. Yes all other systems are reviewed and are negative PMFSH Past Medical History Attestation statement: The following information was validated with the patient. Source: old records reviewed Medical History Migraines No known health problems Social History Social History Alcohol intake: never Patient Tobacco Use Status: Current everyday Tobacco user Substance Use Type: Marijuana Advance Directives: No Advance Directives Information Provided: Yes Physical Exam Vital Signs: Vital Signs: Last Vital Signs Temp 98 F 04/04/22 11:01 Pulse 98 04/04/22 11:01 Resp 17 04/04/22 11:01 BP 128/78 04/04/22 11:01 Pulse Ox 98 04/04/22 11:01 O2 Del Method 04/04/22 11:01 BMI result Body Mass Index 31.5 Vital signs have been reviewed as normal and appeared to be correct. Blood pressure normal.? Heart rate normal.? Respiration rate normal. Temperature normal.? Oxygen saturation normal. Appearance: Alert.?Oriented to person, place and time. No acute distress.?Normal affect. Eyes: Pupils equal, round and reactive to light.? ENT: TM normal bilaterally. Pharynx normal.? Multiple dental caries and fractured teeth present. No gingival swelling, erythema, purulence. No swelling to the cheek. ? Neck: Normal inspection.? Neck supple.??No cervical adenopathy CVS: Heart sounds normal. Normal heart rate and rhythm.? Pulses normal.?? Respiratory: No respiratory distress.? Lung sounds clear to auscultation bilaterally?? Abdomen: Soft and non-tender. Normoactive bowel sounds. Skin: Skin warm and dry.? Normal skin color.? ? Extremities: No lower extremity edema.? Neuro: Moves all extremities spontaneously. Sensation intact bilaterally. No motor deficits. Ambulates with normal steady gait. Medical Decision Making Medical Decision Making MDM Narrative: Patient is a 36-year-old male presents emergency department for evaluation of viral symptoms in addition to dental pain. Right upper and lower molars with multiple dental caries and fractures, has extraction scheduled for this Sunday, does not appear consistent with dental abscess, parapharyngeal space infection, orofacial space infection, acute pulpitis. Vital signs are stable, he is afebrile without tachycardia, tachypnea, or hypoxia. He is in no respiratory distress. Abdominal examination is benign, does not appear consistent with acute abdomen, low suspicion for appendicitis, diverticulitis, cholecystitis, pancreatitis. He is tolerating oral intake while in the emergency department. COVID-19 testing is negative, influenza testing is negative. At this time symptoms are most consistent with a viral syndrome, discussed rest, hydration, bland diet, worrisome signs and symptoms that would warrant re-evaluation in the emergency department. Advised outpatient follow-up with primary care provider in 2 days for persistent symptoms. All questions answered. Patient stable for discharge. Differential Diagnosis Differential Diagnoses: The differential diagnosis associated with the presentation includes (As noted above) Lab Data MDM Lab Attestation statement: I reviewed the patient's lab results. Labs: Lab Results 04/04/22 04/04/22 Range/Units 11:08 12:05 COVID-19 (GIO) Negative (Negative) COVID-19 Clin Com See Note Influenza Type A (CRISTINA) Negative (Negative) Influenza Type B (CRISTINA) Negative (Negative) Influenza A & B Note See Note Discharge Plan Discharge Clinical Impression: Acute viral syndrome Patient Disposition: Home, Self-Care Instructions: Viral Syndrome (ED) Additional Instructions: Your testing today for COVID-19 and influenza were both negative. As discussed, this is most likely a viral infection causing your symptoms. Please be sure to rest, drink plenty of fluids, and follow a bland diet. Introduce a bland diet including crackers, bananas, rice, soup, toast, and boiled vegetables. This may progress to plain baked or boiled chicken or turkey. Avoid dairy products or foods high in fat or grease. If you still have symptoms in 2-3 days you should consider retesting for COVID- 19 Follow-up with your primary care provider as needed for persistent symptoms You may return to emergency department any new or worsening symptoms or concerns. Prescriptions: No Action diphenhydramine HCl [Benadryl] 25 mg capsule 25 mg PO TID PRN (Reason: sleep) Qty: 14 0RF ketorolac 10 mg tablet 10 mg PO Q8H PRN (Reason: pain) Qty: 10 0RF Rx Instructions: Given 1st dose in the ED metoclopramide HCl [Reglan] 10 mg tablet 10 mg PO Q6H PRN (Reason: nausea and vomiting) Qty: 15 0RF amoxicillin-pot clavulanate 875-125 mg tablet 1 tab PO BID 10 Days Qty: 20 0RF Colace Clear 50 mg capsule 50 mg PO BID Qty: 14 0RF polyethylene glycol 3350 [Miralax] 17 gram powder in packet 17 g PO BID Qty: 14 0RF ondansetron 4 mg tablet,disintegrating 4 mg PO Q8H Qty: 14 0RF metoclopramide HCl [Reglan] 5 mg tablet 5 mg PO BID PRN (Reason: nausea and vomiting) Qty: 10 0RF sumatriptan succinate 50 mg tablet 50 mg PO Q2-4H PRN (Reason: migraine headache) Qty: 10 0RF Rx Instructions: do not exceed 4 doses per 24 hrs acetaminophen [Tylenol 8 Hour] 650 mg tablet extended release 650 mg PO Q8H PRN (Reason: pain) Qty: 20 0RF Referrals: Katherine Martinez MD [Primary Care Provider] - Stand Alone Forms: Work/School Release
[2022-04-04 12:39] LABS: IDNOW Serial# BCCEAD1C; Influenza A Negative (Negative); Influenza B2 Negative (Negative)
== END 2022-04-04 13:34 | disposition home or self-care (01) ==
PROVIDERS: Nurse Practitioner Family; Physician Assistant; Emergency Provider Student in an Organized Health Care Education/Training Program; PCP Family Medicine
DX: B34.9 Viral infection, unspecified (principal); R11.2 Nausea with vomiting, unspecified; Z20.822 Contact with and (suspected) exposure to COVID-19; K08.89 Other specified disorders of teeth and supporting structures; F17.200 Nicotine dependence, unspecified, uncomplicated; F12.90 Cannabis use, unspecified, uncomplicated
CPT/HCPCS: 87502; 87635; 99282; 99283

== ENCOUNTER 2022-04-19 16:46 | Emergency (ER) | payer MEDICAID, SELFPAY ==
[2022-04-19 16:51] VITALS: BP 111/78; PULSE 99; RESP 18; TEMP 36.5; O2SAT 97; BMI 29.7
--- NOTE | 2022-04-19 16:51 | ED.GENADULT ---
HPI - General Adult General Chief complaint: Nausea/Vomiting/Diarrhea <VASU Goldman - Last Filed: 04/19/22 16:55> Stated complaint: dizziness, vomiting <VASU Goldman - Last Filed: 04/19/22 16:55> Time Seen by Provider: 04/19/22 17:58 <VASU Goldman - Last Filed: 04/19/22 16:55> Related Data Home medications: Previous Rx's Medication Instructions Recorded diphenhydramine HCl 25 mg capsule 25 mg PO TID PRN sleep #14 caps 08/08/20 (Benadryl) ketorolac 10 mg tablet 10 mg PO Q8H PRN pain #10 tabs 08/08/20 metoclopramide HCl 10 mg tablet 10 mg PO Q6H PRN nausea and 08/08/20 (Reglan) vomiting #15 tabs acetaminophen 650 mg 650 mg PO Q8H PRN pain #20 tabs 01/17/21 tablet,extended release (Tylenol 8 Hour) metoclopramide HCl 5 mg tablet 5 mg PO BID PRN nausea and 01/17/21 (Reglan) vomiting #10 tabs sumatriptan succinate 50 mg tablet 50 mg PO Q2-4H PRN migraine 01/17/21 headache #10 tabs amoxicillin 875 mg-potassium 1 tab PO BID 10 days #20 tabs 01/17/22 clavulanate 125 mg tablet docusate sodium 50 mg capsule 50 mg PO BID Constipation #14 caps 01/17/22 (Colace Clear) ondansetron 4 mg disintegrating 4 mg PO Q8H Nausea and vomiting 01/17/22 tablet #14 tabs polyethylene glycol 3350 17 gram 17 g PO BID Constipation #14 ea 01/17/22 oral powder packet (Miralax) ondansetron 4 mg disintegrating 4 mg PO Q6H PRN nausea and 04/19/22 tablet vomiting #10 tabs <VASU Goldman - Last Filed: 04/19/22 16:55> Allergies/adverse reactions: Allergies Allergy/AdvReac Type Severity Reaction Status Date / Time No Known Allergies Allergy Verified 01/17/21 00:45 [No Known Allergies*] <VASU Goldman - Last Filed: 04/19/22 16:55> [facility] Past Medical History Medical History: Medical History Migraines No known health problems <VASU Goldman - Last Filed: 04/19/22 16:55> Social History Social History: Social History Alcohol intake: unknown Patient Tobacco Use Status: Current everyday Tobacco user Smoked in Last 30 Days: Yes Use of substances other than those prescribed or required for medical reasons: Yes Substance Use Type: Marijuana Advance Directives: No Advance Directives Information Provided: No <VASU Goldman - Last Filed: 04/19/22 16:55> Physical Exam ED Vital Signs: Vital Signs - 24 hr 04/19/22 16:51 04/19/22 18:06 Temperature 97.7 F 97.7 F Pulse Rate 99 60 Respiratory Rate 18 18 Blood Pressure 111/78 109/71 Pulse Oximetry 97 98 Oxygen Delivery Method Room Air Room Air BMI result Body Mass Index 29.7 <VASU Goldman - Last Filed: 04/19/22 16:55> Vital Signs - 24 hr 04/19/22 16:51 04/19/22 18:06 Temperature 97.7 F 97.7 F Pulse Rate 99 60 Respiratory Rate 18 18 Blood Pressure 111/78 109/71 Pulse Oximetry 97 98 Oxygen Delivery Method Room Air Room Air BMI result Body Mass Index 29.7 <Yen Madrigal MD - Last Filed: 04/19/22 19:53> Course Course Course Narrative: RME-16:50PM -36yoM around 1 pm hot flash started then 10 minutes later still felt same way and started having N/V and feeling dehydrated and symptoms continue. Reports he has a cough c sputum production, sore throat, nasal congestion and 3 hard stools this morning. Reports he is having urinary changes where it is takes longer to actually start a stream. Hx of marijuana smoking. Denies fevers, CP, SOB, abd pain, diarrhea, constipation, dysuria, hematuria, rashes, recent travel or sick contacts or any other symptoms complaints or concerns at this time Plan: Labs, UA, strep, COVID/RSV/flu swab ordered at this time. Patient will be sent to the ER for further evaluation treatment. <VASU Goldman - Last Filed: 04/19/22 16:55> Medications Administered Discontinued Medications Generic Name Dose Route Start Last Admin Trade Name Freq PRN Reason Stop Dose Admin Sodium Chloride 1,000 mls @ 999 mls/hr 04/19/22 18:15 04/19/22 18:30 Ns IV 04/19/22 19:15 999 mls/hr .Q1H1M CARLOS Administration Ondansetron HCl 4 mg 04/19/22 18:15 04/19/22 18:21 Ondansetron Hcl 4 Mg/2 Ml Vial IVPUSH 04/19/22 18:16 4 mg ONCE ONE Administration <VASU Goldman - Last Filed: 04/19/22 16:55> Medications Administered Discontinued Medications Generic Name Dose Route Start Last Admin Trade Name Freq PRN Reason Stop Dose Admin Sodium Chloride 1,000 mls @ 999 mls/hr 04/19/22 18:15 04/19/22 18:30 Ns IV 04/19/22 19:15 999 mls/hr .Q1H1M CARLOS Administration Ondansetron HCl 4 mg 04/19/22 18:15 04/19/22 18:21 Ondansetron Hcl 4 Mg/2 Ml Vial IVPUSH 04/19/22 18:16 4 mg ONCE ONE Administration <Yen Madrigal MD - Last Filed: 04/19/22 19:53> Medical Decision Making Medical Decision Making [facility] [place] Narrative: -after IV fluids and Zofran patient feeling much better. -discussed with the patient that he may have a viral syndrome versus cyclic vomiting from THC use <Yen Madrigal MD - Last Filed: 04/19/22 19:53> Differential Diagnosis Differential Diagnoses: The differential diagnosis associated with the presentation includes (Cyclical vomiting, viral syndrome, gastroenteritis) <Yen Madrigal MD - Last Filed: 04/19/22 19:53> Lab Data [facility] [place] Lab Attestation statement: I reviewed the patient's lab results. <Yen Madrigal MD - Last Filed: 04/19/22 19:53> Result Diagrams: 04/19/22 17:06 04/19/22 17:06 <VASU Goldman - Last Filed: 04/19/22 16:55> Labs: Lab Results 04/19/22 04/19/22 04/19/22 Range/Units 17:00 17:01 17:03 WBC (4.8-10.8) X10*3/uL RBC (4.60-5.80) X10*6/uL Hgb (14.0-18.0) g/dl Hct (42.0-52.0) % MCV (80.0-98.0) fL MCH (27.0-33.0) pg MCHC (31.0-36.0) g/dl RDW (11.0-16.0) % Plt Count (160-400) X10*3/uL MPV (9.4-12.4) fL Immature Gran % (Auto) (0.0-0.4) % Neut % (Auto) (45-73) % Lymph % (Auto) (20-40) % [place] % (Auto) (2-11) % Eos % (Auto) (0-4) % Baso % (Auto) (0-2) % Lymph # (Auto) (1.2-4.9) X10*3/uL [place] # (Auto) (0.1-1.2) X10*3/uL Eos # (Auto) (0.0-0.4) X10*3/uL Baso # (Auto) (0.0-0.2) X10*3/uL Abs Immat Gran (auto) (0.00-0.03) X10*3/uL Absolute Neuts (auto) (2.0-8.3) x10*3/uL Absolute Nucleated RBC (0.0-0.012) X10*3/uL Nucleated RBC % (auto) (0.0-0.2) /100WBC Smear Tech's Comments PT (10.0-13.1) SEC INR (0.9-1.1) Sodium (135-145) mmol/L Potassium (3.3-5.1) mmol/L Chloride (96-108) mmol/L Carbon Dioxide (22-29) mmol/L Anion Gap (12-20) BUN (9-16) mg/dL Creatinine (0.5-1.4) mg/dL Estim Creat Clear Calc Estimated GFR Random Glucose (60-115) mg/dL Calcium (8.4-10.2) mg/dL Magnesium (1.6-2.6) mg/dL Total Bilirubin (0.0-1.0) mg/dL AST (5-37) U/L ALT (0-40) U/L Alkaline Phosphatase (39-117) U/L Total Protein (6.5-8.0) g/dL Albumin (3.5-5.0) g/dL Lipase (8-78) U/L Urine Color Yellow Urine Appearance Clear Urine pH >= 9.0 (5.0-9.0) Ur Specific [place] >= 1.030 H (1.005-1.025) Urine Protein 30 (1+) H (Neg-Trace) mg/dL Urine Glucose (UA) Negative (Negative) mg/dL Urine Ketones Trace (Negative) mg/dL Urine Blood Negative (Negative) Urine Nitrite Negative (Negative) Ur Leukocyte Esterase Negative (Negative) Urine RBC 3-5 H (0-2) /HPF Urine WBC 0-5 (0-5) /HPF Ur Squamous Epith Cells 0-2 (0-2) /HPF Urine Bacteria None Seen (None Seen) Hyaline Casts 0-2 (0-2) /LPF Urine Opiates Screen Not Detected (Not Detect) Urine Fentanyl Screen Not Detected (Not Detect) Ur Barbiturates Screen Not Detected (Not Detect) Ur Phencyclidine Scrn Not Detected (Not Detect) Ur Amphetamines Screen Not Detected (Not Detect) U Benzodiazepines Scrn Not Detected (Not Detect) Urine Cocaine Screen Not Detected (Not Detect) U Marijuana (THC) Screen POSITIVE H (Not Detect) Ethyl Alcohol mg/dL Influenza Type A (PCR) NEGATIVE (Negative) Influenza Type B (PCR) NEGATIVE (Negative) RSV RNA Qual (PCR) NEGATIVE (Negative) SARS-CoV-2 RNA (RT-PCR) NEGATIVE (Negative) S. pyogenes GrpA CRISTINA (Negative) 04/19/22 04/19/22 04/19/22 Range/Units 17:03 17:06 17:06 WBC 13.5 H (4.8-10.8) X10*3/uL RBC 4.65 (4.60-5.80) X10*6/uL Hgb 12.9 L (14.0-18.0) g/dl Hct 39.4 L (42.0-52.0) % MCV 84.7 (80.0-98.0) fL MCH 27.7 (27.0-33.0) pg MCHC 32.7 (31.0-36.0) g/dl RDW 14.0 (11.0-16.0) % Plt Count 235 (160-400) X10*3/uL MPV 9.5 (9.4-12.4) fL Immature Gran % (Auto) 0.2 (0.0-0.4) % Neut % (Auto) 93.9 H (45-73) % Lymph % (Auto) 3.1 L (20-40) % [place] % (Auto) 2.4 (2-11) % Eos % (Auto) 0.2 (0-4) % Baso % (Auto) 0.2 (0-2) % Lymph # (Auto) 0.4 L (1.2-4.9) X10*3/uL [place] # (Auto) 0.3 (0.1-1.2) X10*3/uL Eos # (Auto) 0.0 (0.0-0.4) X10*3/uL Baso # (Auto) 0.0 (0.0-0.2) X10*3/uL Abs Immat Gran (auto) 0.03 (0.00-0.03) X10*3/uL Absolute Neuts (auto) 12.6 H (2.0-8.3) x10*3/uL Absolute Nucleated RBC 0.000 (0.0-0.012) X10*3/uL Nucleated RBC % (auto) 0.0 (0.0-0.2) /100WBC Smear Tech's Comments VERIFIED PT 11.7 (10.0-13.1) SEC INR 1.0 (0.9-1.1) Sodium (135-145) mmol/L Potassium (3.3-5.1) mmol/L Chloride (96-108) mmol/L Carbon Dioxide (22-29) mmol/L Anion Gap (12-20) BUN (9-16) mg/dL Creatinine (0.5-1.4) mg/dL Estim Creat Clear Calc Estimated GFR Random Glucose (60-115) mg/dL Calcium (8.4-10.2) mg/dL Magnesium (1.6-2.6) mg/dL Total Bilirubin (0.0-1.0) mg/dL AST (5-37) U/L ALT (0-40) U/L Alkaline Phosphatase (39-117) U/L Total Protein (6.5-8.0) g/dL Albumin (3.5-5.0) g/dL Lipase (8-78) U/L Urine Color Urine Appearance Urine pH (5.0-9.0) Ur Specific [place] (1.005-1.025) Urine Protein (Neg-Trace) mg/dL Urine Glucose (UA) (Negative) mg/dL Urine Ketones (Negative) mg/dL Urine Blood (Negative) Urine Nitrite (Negative) Ur Leukocyte Esterase (Negative) Urine RBC (0-2) /HPF Urine WBC (0-5) /HPF Ur Squamous Epith Cells (0-2) /HPF Urine Bacteria (None Seen) Hyaline Casts (0-2) /LPF Urine Opiates Screen (Not Detect) Urine Fentanyl Screen (Not Detect) Ur Barbiturates Screen (Not Detect) Ur Phencyclidine Scrn (Not Detect) Ur Amphetamines Screen (Not Detect) U Benzodiazepines Scrn (Not Detect) Urine Cocaine Screen (Not Detect) U Marijuana (THC) Screen (Not Detect) Ethyl Alcohol mg/dL Influenza Type A (PCR) (Negative) Influenza Type B (PCR) (Negative) RSV RNA Qual (PCR) (Negative) SARS-CoV-2 RNA (RT-PCR) (Negative) S. pyogenes GrpA CRISTINA Negative (Negative) 04/19/22 04/19/22 Range/Units 17:06 17:06 WBC (4.8-10.8) X10*3/uL RBC (4.60-5.80) X10*6/uL Hgb (14.0-18.0) g/dl Hct (42.0-52.0) % MCV (80.0-98.0) fL MCH (27.0-33.0) pg MCHC (31.0-36.0) g/dl RDW (11.0-16.0) % Plt Count (160-400) X10*3/uL MPV (9.4-12.4) fL Immature Gran % (Auto) (0.0-0.4) % Neut % (Auto) (45-73) % Lymph % (Auto) (20-40) % [place] % (Auto) (2-11) % Eos % (Auto) (0-4) % Baso % (Auto) (0-2) % Lymph # (Auto) (1.2-4.9) X10*3/uL [place] # (Auto) (0.1-1.2) X10*3/uL Eos # (Auto) (0.0-0.4) X10*3/uL Baso # (Auto) (0.0-0.2) X10*3/uL Abs Immat Gran (auto) (0.00-0.03) X10*3/uL Absolute Neuts (auto) (2.0-8.3) x10*3/uL Absolute Nucleated RBC (0.0-0.012) X10*3/uL Nucleated RBC % (auto) (0.0-0.2) /100WBC Smear Tech's Comments PT (10.0-13.1) SEC INR (0.9-1.1) Sodium 141 (135-145) mmol/L Potassium 4.4 (3.3-5.1) mmol/L Chloride 103 (96-108) mmol/L Carbon Dioxide 29 (22-29) mmol/L Anion Gap 13 (12-20) BUN 20 H (9-16) mg/dL Creatinine 1.01 (0.5-1.4) mg/dL Estim Creat Clear Calc 124.5 Estimated GFR > 60 Random Glucose 109 (60-115) mg/dL Calcium 9.8 D (8.4-10.2) mg/dL Magnesium 1.9 (1.6-2.6) mg/dL Total Bilirubin 0.8 (0.0-1.0) mg/dL AST 20 (5-37) U/L ALT 17 (0-40) U/L Alkaline Phosphatase 55 (39-117) U/L Total Protein 8.0 (6.5-8.0) g/dL Albumin 4.5 (3.5-5.0) g/dL Lipase 14 (8-78) U/L Urine Color Urine Appearance Urine pH (5.0-9.0) Ur Specific [place] (1.005-1.025) Urine Protein (Neg-Trace) mg/dL Urine Glucose (UA) (Negative) mg/dL Urine Ketones (Negative) mg/dL Urine Blood (Negative) Urine Nitrite (Negative) Ur Leukocyte Esterase (Negative) Urine RBC (0-2) /HPF Urine WBC (0-5) /HPF Ur Squamous Epith Cells (0-2) /HPF Urine Bacteria (None Seen) Hyaline Casts (0-2) /LPF Urine Opiates Screen (Not Detect) Urine Fentanyl Screen (Not Detect) Ur Barbiturates Screen (Not Detect) Ur Phencyclidine Scrn (Not Detect) Ur Amphetamines Screen (Not Detect) U Benzodiazepines Scrn (Not Detect) Urine Cocaine Screen (Not Detect) U Marijuana (THC) Screen (Not Detect) Ethyl Alcohol < 10 mg/dL Influenza Type A (PCR) (Negative) Influenza Type B (PCR) (Negative) RSV RNA Qual (PCR) (Negative) SARS-CoV-2 RNA (RT-PCR) (Negative) S. pyogenes GrpA CRISTINA (Negative) <VASU Goldman - Last Filed: 04/19/22 16:55> Lab Results 04/19/22 04/19/22 04/19/22 Range/Units 17:00 17:01 17:03 WBC (4.8-10.8) X10*3/uL RBC (4.60-5.80) X10*6/uL Hgb (14.0-18.0) g/dl Hct (42.0-52.0) % MCV (80.0-98.0) fL MCH (27.0-33.0) pg MCHC (31.0-36.0) g/dl RDW (11.0-16.0) % Plt Count (160-400) X10*3/uL MPV (9.4-12.4) fL Immature Gran % (Auto) (0.0-0.4) % Neut % (Auto) (45-73) % Lymph % (Auto) (20-40) % [place] % (Auto) (2-11) % Eos % (Auto) (0-4) % Baso % (Auto) (0-2) % Lymph # (Auto) (1.2-4.9) X10*3/uL [place] # (Auto) (0.1-1.2) X10*3/uL Eos # (Auto) (0.0-0.4) X10*3/uL Baso # (Auto) (0.0-0.2) X10*3/uL Abs Immat Gran (auto) (0.00-0.03) X10*3/uL Absolute Neuts (auto) (2.0-8.3) x10*3/uL Absolute Nucleated RBC (0.0-0.012) X10*3/uL Nucleated RBC % (auto) (0.0-0.2) /100WBC Smear Tech's Comments PT (10.0-13.1) SEC INR (0.9-1.1) Sodium (135-145) mmol/L Potassium (3.3-5.1) mmol/L Chloride (96-108) mmol/L Carbon Dioxide (22-29) mmol/L Anion Gap (12-20) BUN (9-16) mg/dL Creatinine (0.5-1.4) mg/dL Estim Creat Clear Calc Estimated GFR Random Glucose (60-115) mg/dL Calcium (8.4-10.2) mg/dL Magnesium (1.6-2.6) mg/dL Total Bilirubin (0.0-1.0) mg/dL AST (5-37) U/L ALT (0-40) U/L Alkaline Phosphatase (39-117) U/L Total Protein (6.5-8.0) g/dL Albumin (3.5-5.0) g/dL Lipase (8-78) U/L Urine Color Yellow Urine Appearance Clear Urine pH >= 9.0 (5.0-9.0) Ur Specific [place] >= 1.030 H (1.005-1.025) Urine Protein 30 (1+) H (Neg-Trace) mg/dL Urine Glucose (UA) Negative (Negative) mg/dL Urine Ketones Trace (Negative) mg/dL Urine Blood Negative (Negative) Urine Nitrite Negative (Negative) Ur Leukocyte Esterase Negative (Negative) Urine RBC 3-5 H (0-2) /HPF Urine WBC 0-5 (0-5) /HPF Ur Squamous Epith Cells 0-2 (0-2) /HPF Urine Bacteria None Seen (None Seen) Hyaline Casts 0-2 (0-2) /LPF Urine Opiates Screen Not Detected (Not Detect) Urine Fentanyl Screen Not Detected (Not Detect) Ur Barbiturates Screen Not Detected (Not Detect) Ur Phencyclidine Scrn Not Detected (Not Detect) Ur Amphetamines Screen Not Detected (Not Detect) U Benzodiazepines Scrn Not Detected (Not Detect) Urine Cocaine Screen Not Detected (Not Detect) U Marijuana (THC) Screen POSITIVE H (Not Detect) Ethyl Alcohol mg/dL Influenza Type A (PCR) NEGATIVE (Negative) Influenza Type B (PCR) NEGATIVE (Negative) RSV RNA Qual (PCR) NEGATIVE (Negative) SARS-CoV-2 RNA (RT-PCR) NEGATIVE (Negative) S. pyogenes GrpA CRISTINA (Negative) 04/19/22 04/19/22 04/19/22 Range/Units 17:03 17:06 17:06 WBC 13.5 H (4.8-10.8) X10*3/uL RBC 4.65 (4.60-5.80) X10*6/uL Hgb 12.9 L (14.0-18.0) g/dl Hct 39.4 L (42.0-52.0) % MCV 84.7 (80.0-98.0) fL MCH 27.7 (27.0-33.0) pg MCHC 32.7 (31.0-36.0) g/dl RDW 14.0 (11.0-16.0) % Plt Count 235 (160-400) X10*3/uL MPV 9.5 (9.4-12.4) fL Immature Gran % (Auto) 0.2 (0.0-0.4) % Neut % (Auto) 93.9 H (45-73) % Lymph % (Auto) 3.1 L (20-40) % [place] % (Auto) 2.4 (2-11) % Eos % (Auto) 0.2 (0-4) % Baso % (Auto) 0.2 (0-2) % Lymph # (Auto) 0.4 L (1.2-4.9) X10*3/uL [place] # (Auto) 0.3 (0.1-1.2) X10*3/uL Eos # (Auto) 0.0 (0.0-0.4) X10*3/uL Baso # (Auto) 0.0 (0.0-0.2) X10*3/uL Abs Immat Gran (auto) 0.03 (0.00-0.03) X10*3/uL Absolute Neuts (auto) 12.6 H (2.0-8.3) x10*3/uL Absolute Nucleated RBC 0.000 (0.0-0.012) X10*3/uL Nucleated RBC % (auto) 0.0 (0.0-0.2) /100WBC Smear Tech's Comments VERIFIED PT 11.7 (10.0-13.1) SEC INR 1.0 (0.9-1.1) Sodium (135-145) mmol/L Potassium (3.3-5.1) mmol/L Chloride (96-108) mmol/L Carbon Dioxide (22-29) mmol/L Anion Gap (12-20) BUN (9-16) mg/dL Creatinine (0.5-1.4) mg/dL Estim Creat Clear Calc Estimated GFR Random Glucose (60-115) mg/dL Calcium (8.4-10.2) mg/dL Magnesium (1.6-2.6) mg/dL Total Bilirubin (0.0-1.0) mg/dL AST (5-37) U/L ALT (0-40) U/L Alkaline Phosphatase (39-117) U/L Total Protein (6.5-8.0) g/dL Albumin (3.5-5.0) g/dL Lipase (8-78) U/L Urine Color Urine Appearance Urine pH (5.0-9.0) Ur Specific [place] (1.005-1.025) Urine Protein (Neg-Trace) mg/dL Urine Glucose (UA) (Negative) mg/dL Urine Ketones (Negative) mg/dL Urine Blood (Negative) Urine Nitrite (Negative) Ur Leukocyte Esterase (Negative) Urine RBC (0-2) /HPF Urine WBC (0-5) /HPF Ur Squamous Epith Cells (0-2) /HPF Urine Bacteria (None Seen) Hyaline Casts (0-2) /LPF Urine Opiates Screen (Not Detect) Urine Fentanyl Screen (Not Detect) Ur Barbiturates Screen (Not Detect) Ur Phencyclidine Scrn (Not Detect) Ur Amphetamines Screen (Not Detect) U Benzodiazepines Scrn (Not Detect) Urine Cocaine Screen (Not Detect) U Marijuana (THC) Screen (Not Detect) Ethyl Alcohol mg/dL Influenza Type A (PCR) (Negative) Influenza Type B (PCR) (Negative) RSV RNA Qual (PCR) (Negative) SARS-CoV-2 RNA (RT-PCR) (Negative) S. pyogenes GrpA CRISTINA Negative (Negative) 04/19/22 04/19/22 Range/Units 17:06 17:06 WBC (4.8-10.8) X10*3/uL RBC (4.60-5.80) X10*6/uL Hgb (14.0-18.0) g/dl Hct (42.0-52.0) % MCV (80.0-98.0) fL MCH (27.0-33.0) pg MCHC (31.0-36.0) g/dl RDW (11.0-16.0) % Plt Count (160-400) X10*3/uL MPV (9.4-12.4) fL Immature Gran % (Auto) (0.0-0.4) % Neut % (Auto) (45-73) % Lymph % (Auto) (20-40) % [place] % (Auto) (2-11) % Eos % (Auto) (0-4) % Baso % (Auto) (0-2) % Lymph # (Auto) (1.2-4.9) X10*3/uL [place] # (Auto) (0.1-1.2) X10*3/uL Eos # (Auto) (0.0-0.4) X10*3/uL Baso # (Auto) (0.0-0.2) X10*3/uL Abs Immat Gran (auto) (0.00-0.03) X10*3/uL Absolute Neuts (auto) (2.0-8.3) x10*3/uL Absolute Nucleated RBC (0.0-0.012) X10*3/uL Nucleated RBC % (auto) (0.0-0.2) /100WBC Smear Tech's Comments PT (10.0-13.1) SEC INR (0.9-1.1) Sodium 141 (135-145) mmol/L Potassium 4.4 (3.3-5.1) mmol/L Chloride 103 (96-108) mmol/L Carbon Dioxide 29 (22-29) mmol/L Anion Gap 13 (12-20) BUN 20 H (9-16) mg/dL Creatinine 1.01 (0.5-1.4) mg/dL Estim Creat Clear Calc 124.5 Estimated GFR > 60 Random Glucose 109 (60-115) mg/dL Calcium 9.8 D (8.4-10.2) mg/dL Magnesium 1.9 (1.6-2.6) mg/dL Total Bilirubin 0.8 (0.0-1.0) mg/dL AST 20 (5-37) U/L ALT 17 (0-40) U/L Alkaline Phosphatase 55 (39-117) U/L Total Protein 8.0 (6.5-8.0) g/dL Albumin 4.5 (3.5-5.0) g/dL Lipase 14 (8-78) U/L Urine Color Urine Appearance Urine pH (5.0-9.0) Ur Specific [place] (1.005-1.025) Urine Protein (Neg-Trace) mg/dL Urine Glucose (UA) (Negative) mg/dL Urine Ketones (Negative) mg/dL Urine Blood (Negative) Urine Nitrite (Negative) Ur Leukocyte Esterase (Negative) Urine RBC (0-2) /HPF Urine WBC (0-5) /HPF Ur Squamous Epith Cells (0-2) /HPF Urine Bacteria (None Seen) Hyaline Casts (0-2) /LPF Urine Opiates Screen (Not Detect) Urine Fentanyl Screen (Not Detect) Ur Barbiturates Screen (Not Detect) Ur Phencyclidine Scrn (Not Detect) Ur Amphetamines Screen (Not Detect) U Benzodiazepines Scrn (Not Detect) Urine Cocaine Screen (Not Detect) U Marijuana (THC) Screen (Not Detect) Ethyl Alcohol < 10 mg/dL Influenza Type A (PCR) (Negative) Influenza Type B (PCR) (Negative) RSV RNA Qual (PCR) (Negative) SARS-CoV-2 RNA (RT-PCR) (Negative) S. pyogenes GrpA CRISTINA (Negative) <Yen Madrigal MD - Last Filed: 04/19/22 19:53> Discharge Plan Discharge Clinical Impression: Nausea & vomiting <VASU Goldman - Last Filed: 04/19/22 16:55> Patient Disposition: Home, Self-Care <VASU Goldman - Last Filed: 04/19/22 16:55> Instructions: Acute Nausea and Vomiting (ED) <VASU Goldman - Last Filed: 04/19/22 16:55> Additional Instructions: Please follow-up with your primary care physician tomorrow. If you have any worsening or new symptoms, please return to the emergency room or call 911 <VASU Goldman - Last Filed: 04/19/22 16:55> Prescriptions: New ondansetron 4 mg tablet,disintegrating 4 mg PO Q6H PRN (Reason: nausea and vomiting) Qty: 10 0RF No Action diphenhydramine HCl [Benadryl] 25 mg capsule 25 mg PO TID PRN (Reason: sleep) Qty: 14 0RF ketorolac 10 mg tablet 10 mg PO Q8H PRN (Reason: pain) Qty: 10 0RF Rx Instructions: Given 1st dose in the ED metoclopramide HCl [Reglan] 10 mg tablet 10 mg PO Q6H PRN (Reason: nausea and vomiting) Qty: 15 0RF amoxicillin-pot clavulanate 875-125 mg tablet 1 tab PO BID 10 Days Qty: 20 0RF Colace Clear 50 mg capsule 50 mg PO BID Qty: 14 0RF polyethylene glycol 3350 [Miralax] 17 gram powder in packet 17 g PO BID Qty: 14 0RF ondansetron 4 mg tablet,disintegrating 4 mg PO Q8H Qty: 14 0RF metoclopramide HCl [Reglan] 5 mg tablet 5 mg PO BID PRN (Reason: nausea and vomiting) Qty: 10 0RF sumatriptan succinate 50 mg tablet 50 mg PO Q2-4H PRN (Reason: migraine headache) Qty: 10 0RF Rx Instructions: do not exceed 4 doses per 24 hrs acetaminophen [Tylenol 8 Hour] 650 mg tablet extended release 650 mg PO Q8H PRN (Reason: pain) Qty: 20 0RF <VASU Goldman - Last Filed: 04/19/22 16:55>
--- OUTSIDE RECORDS SUMMARY | 2022-04-19 17:03 | XMS_ITS | Continuity of Care Document ---
:1985 Author Organization [facility] Address [address] [place] [address]- Care Team Providers Name Role Phone Katherine Martinez MD Primary Care Physician Encounter [facility] [place](s): 06/07/21 - 06/07/[address] [address]- Encounter Diagnosis Enterocolitis (Final) - 06/07/21 Discharge Disposition: A-D/C Home Attending Physician: Karen Arriaga MD Admitting Physician: Karen Arriaga MD Referring Physician: Not on Staff, Referring MD Allergies, Adverse Reactions, Alerts No Known Allergies Medications Methadone = 50 mg, By Mouth, 0 Refills, Maintenance, 01/30/18 13:09:44 EST Start Date: 01/30/18 Status: Ordered Problem List Condition Effective Dates Status Health Status Informant Anxiety and depression(Confirmed) Active Results Orders for Microbiology Reports Name Date Stool Culture 06/07/21 Microbiology Reports TEST:Stool Culture STATUS:Unauthenticated BODY SITE: SOURCE:STOOL COLLECTED DATE/TIME:06/07/21 11:35 AMStool Culture SPECIMEN DESCRIPTION : STOOL IN SARAY INNA PRESERVATIVE SPECIAL REQUESTS : NONE REPORT STATUS : PRELIMINARY REPORT Vital Signs Most recent to oldest 1 2 3 [Reference Range]: Oxygen Saturation [94-100 %] 99 % 97 % 98 % (06/07/21 8:10 AM) (06/07/21 7:43 AM) (06/07/21 5:5 3 AM) Pulse Rate [55-90 bpm] 76 bpm 97 bpm 83 bpm (06/07/21 8:10 AM) *H* (06/07/21 5:53 AM) (06/07/21 7:43 AM) Blood Pressure [90-138/55-84 mm 135/72 mm Hg 131/78 mm Hg 121/68 mm Hg Hg] (06/07/21 8:10 AM) (06/07/21 7:43 AM) (06/07/21 5:5 3 AM) Respiratory Rate [16-30 br/min] 18 br/min 24 br/min 18 br/min (06/07/21 8:10 AM) (06/07/21 7:43 AM) (06/07/21 5:5 3 AM) Temperature [96.8-100.4 DegF] 98 DegF 99.0 DegF 98 .4 DegF (06/07/21 8:10 AM) (06/07/21 7:43 AM) (06/07/21 5:5 3 AM) Mode of Delivery (Oxygen) Room air Room air Room a ir (06/07/21 8:10 AM) (06/07/21 7:43 AM) (06/07/21 5:5 3 AM) Blood pressure sites Arm, left Arm, left Arm, right (06/07/21 8:10 AM) (06/07/21 7:43 AM) (06/07/21 5:5 3 AM) Temperature Route Oral Oral Oral (06/07/21 8:10 AM) (06/07/21 7:43 AM) (06/07/21 5:5 3 AM) Social History Social History Type Response Smoking Status Current every day smoker; Ot her: 2 ppd; entered on: 01/01/15 Sex
--- OUTSIDE RECORDS SUMMARY | 2022-04-19 17:03 | XMS_ITS | Continuity of Care Document ---
:1985 Author Organization [facility] Address [address] [place] [address]- Care Team Providers Name Role Phone Katherine Martinez MD Primary Care Physician [place] [facility] [place] 06[place]05/21 - 06/05/[address] [address]- Encounter Diagnosis Acute gastroenteritis (Final) - 06/05/21 Discharge Disposition: A-D/C Home Attending Physician: Vangie Ng MD Admitting Physician: Vangie Ng MD Referring Physician: Not on Staff, Referring MD Allergies, Adverse Reactions, Alerts No Known Allergies Medications Methadone = 50 mg, By Mouth, 0 Refills, Maintenance, 01/30/18 13:09:44 EST Start Date: 01/30/18 Status: Ordered Problem List Condition Effective Dates Status Health Status Informant Anxiety and depression(Confirmed) Active Vital Signs Most recent to oldest 1 2 3 [Reference Range]: Oxygen Saturation [94-100 %] 96 % 97 % 100 % (06/05/21 6:01 PM) (06/05/21 5:16 PM) (06/05/21 5:1 2 PM) Pulse Rate [55-90 bpm] 84 bpm 106 bpm 114 bpm (06/05/21 6:01 PM) *H* *H* (06/05/21 5:16 PM) (06/05/21 5:12 PM) Blood Pressure [90-138/55-84 mm 113/69 mm Hg 117/73 mm Hg Hg] (06/05/21 6:01 PM) (06/05/21 5:16 PM) Respiratory Rate [16-30 br/min] 18 br/min 18 br/min (06/05/21 6:01 PM) (06/05/21 5:16 PM) Temperature [96.8-100.4 DegF] 99.5 DegF 99.0 DegF (06/05/21 6:01 PM) (06/05/21 5:16 PM) Mode of Delivery (Oxygen) Room air Room air Room a ir (06/05/21 6:01 PM) (06/05/21 5:16 PM) (06/05/21 5:1 2 PM) Blood pressure sites Arm, right Arm, right (06/05/21 6:01 PM) (06/05/21 5:16 PM) Temperature Route Oral Oral (06/05/21 6:01 PM) (06/05/21 5:16 PM) Social History Social History Type Response Smoking Status Current every day smoker; Ot her: 2 ppd; entered on: 01/01/15 Sex
[2022-04-19 17:17] LABS: Basophils Percent Auto 0.2 % (0-2); Eosinophils Percent Auto 0.2 % (0-4); Hematocrit 39.4 % (42.0-52.0); Hemoglobin 12.9 g/dl (14.0-18.0); Imm Gran Abs Auto 0.03 X10*3/uL (0.00-0.03); Imm Gran Pct Auto 0.2 % (0.0-0.4); Lymphocytes Absolute Auto 0.4 X10*3/uL (1.2-4.9); Lymphocytes Percent Auto 3.1 % (20-40); MANUAL DIFF FLAG SCAN; Mean Corpuscular HGB Conc 32.7 g/dl (31.0-36.0); Mean Corpuscular Hemoglobin 27.7 pg (27.0-33.0); Mean Corpuscular Volume 84.7 fL (80.0-98.0); Mean Platelet Volume 9.5 fL (9.4-12.4); Monocytes Absolute Auto 0.3 X10*3/uL (0.1-1.2); Monocytes Percent Auto 2.4 % (2-11); Neutrophils Absolute Auto 12.6 x10*3/uL (2.0-8.3); Neutrophils Percent Auto 93.9 % (45-73); Platelet Count 235 X10*3/uL (160-400); Red Blood Count 4.65 X10*6/uL (4.60-5.80); SCAN SMEAR FLAG 1; White Blood Count 13.5 X10*3/uL (4.8-10.8)
[2022-04-19 17:18] LABS: Appearance Urine Clear; Color Urine Yellow; Glucose Urine UA Negative (Negative); Leukocyte Esterase Urine Negative (Negative); Nitrite Urine Negative (Negative); PH >= 9.0 (5.0-9.0); Specific Gravity - Urine >= 1.030 (1.005-1.025); UMIC TRIGGER UACC YES; Urine Blood Negative (Negative); Urine Ketones Trace mg/dL (Negative); Urine Protein 30 (1+) mg/dL (Neg-Trace)
[2022-04-19 17:23] LABS: Bacteria Urine None Seen (None Seen); Hyaline Casts Urine 0-2 /LPF (0-2); Squamous Epithelial Cell Urine 0-2 /HPF (0-2); WBC Urine 0-5 /HPF (0-5)
[2022-04-19 17:23] LABS: Prothrombin Time 11.7 SEC (10.0-13.1)
[2022-04-19 17:27] LABS: Amphetamine Screen Urine Not Detected (Not Detect); Barbiturates, Urine Not Detected (Not Detect); Benzodiazepines Screen Urine Not Detected (Not Detect); Cannabinoid Screen Urine POSITIVE (Not Detect); Cocaine Screen Urine Not Detected (Not Detect); Fentanyl, urine Not Detected (Not Detect); Opiate Screen Urine Not Detected (Not Detect); Phencyclidine Screen Urine Not Detected (Not Detect)
[2022-04-19 17:27] LABS: IDNOW Serial# 6674DD1D; Strep A Nucleic Acid Negative (Negative)
[2022-04-19 17:30] LABS: Ethanol < 10 mg/dL
[2022-04-19 17:41] LABS: Alanine Aminotransferase 17 U/L (0-40); Albumin Level 4.5 g/dL (3.5-5.0); Alkaline Phosphatase 55 U/L (39-117); Anion Gap 13 (12-20); Aspartate Amino Transferase 20 U/L (5-37); Bilirubin Total 0.8 mg/dL (0.0-1.0); Blood Urea Nitrogen 20 mg/dL (9-16); Calcium 9.8 mg/dL (8.4-10.2); Carbon Dioxide 29 mmol/L (22-29); Chloride 103 mmol/L (96-108); Creatinine Clr Calc Pharmacy 124.5; Estimated Glomerular Filt Rate > 60; Glucose Random 109 mg/dL (60-115); Lipase 14 U/L (8-78); Magnesium 1.9 mg/dL (1.6-2.6); Potassium 4.4 mmol/L (3.3-5.1); Sodium 141 mmol/L (135-145)
[2022-04-19 17:54] LABS: Influenza A PCR NEGATIVE (Negative); Influenza B PCR NEGATIVE (Negative); Resp Syncy Virus RNA Qual PCR NEGATIVE (Negative); SARS COV2 PCR INHOUSE NEGATIVE (Negative)
[2022-04-19 17:59] LABS: SLIDE REVIEW VERIFIED
--- NOTE | 2022-04-19 18:04 | PC.NURSE ---
Patient complaint of N/V and abd pain none currently, ABD soft non tender BS quad x 4 no guarding noted. LS clear no distress noted AOx 4 neuros intact. PAtient reports daily marijuana use has had issues with vomiting and ED visits in past. IV access obtained will CTM
[2022-04-19 18:06] VITALS: BP 109/71; PULSE 60; RESP 18; TEMP 36.5; O2SAT 98
[2022-04-19] MEDS: ondansetron HCL 4 MG/2 ML VIAL IVPUSH (18:21)
[2022-04-19] MEDS: 0.9 % Sodium Chloride 1,000 ML 999 ML IV (18:30)
--- NOTE | 2022-04-19 19:53 | PC.NURSE ---
Pt DUEÑAS x 4 ambulatory reports is feeling better denying nausea would like to be discharged. Dr. Madrigal informed agrees to discharge Pt.
== END 2022-04-19 20:00 | disposition home or self-care (01) ==
PROVIDERS: Physician Assistant Medical; Emergency Provider Emergency Medicine; PCP Family Medicine
DX: R11.2 Nausea with vomiting, unspecified (principal); F12.90 Cannabis use, unspecified, uncomplicated; Z20.822 Contact with and (suspected) exposure to COVID-19; Z20.828 Contact with and (suspected) exposure to other viral communicable diseases; F17.200 Nicotine dependence, unspecified, uncomplicated; Z79.899 Other long term (current) drug therapy
CPT/HCPCS: 0241U; 36415; 80053; 80307; 81001; 82077; 83690; 83735; 85025; 85610; 87651; 96361; 96374; 99284; J2405

== ENCOUNTER 2022-07-21 10:48 | Emergency (ER) | payer MEDICAID, SELFPAY ==
[2022-07-21 11:45] VITALS: BP 113/72; PULSE 51; RESP 20; TEMP 36; O2SAT 98; BMI 31.0
--- NOTE | 2022-07-21 11:45 | ED_ITS ---
HPI - URI/Sore Throat General Chief Complaint: General Medical <VASU Ortega - Last Filed: 07/21/22 11:48> Stated Complaint: Migraine/Body aches/Chills <VASU Ortega - Last Filed: 07/21/22 11:48> Time Seen by Provider: 07/21/22 16:02 <VASU Ortega - Last Filed: 07/21/22 11:48> Source: patient <Anthony Phelps MD - Last Filed: 07/21/22 18:04> Mode of arrival: ambulatory <Anthony Phelps MD - Last Filed: 07/21/22 18:04> Limitations: no limitations <Anthony Phelps MD - Last Filed: 07/21/22 18:04> History of Present Illness HPI Narrative: 36-year-old male with history of migraine headaches presents with migraine headache. The headache started yesterday at 10:00 a.m. in the night. The headache is on the left side. Patient describes the pain as an 8 at 10. It is constant. It is worse with light and sound. It is associated with nausea and vomiting. He also does complain of diarrhea. Denies any fevers or chills. The headache came on gradually. It does not radiate. There is no associated neck pain or stiffness. He denies any focal neurologic deficits or head trauma. He headache is similar to his previous migraine headaches. Prior to being in custodial, he is to be on prophylactic medication but currently is not. <Anthony Phelps MD - Last Filed: 07/21/22 18:04> Related Data Home Medications: Previous Rx's Medication Instructions Recorded diphenhydramine HCl 25 mg capsule 25 mg PO TID PRN sleep #14 caps 08/08/20 (Benadryl) ketorolac 10 mg tablet 10 mg PO Q8H PRN pain #10 tabs 08/08/20 metoclopramide HCl 10 mg tablet 10 mg PO Q6H PRN nausea and 08/08/20 (Reglan) vomiting #15 tabs acetaminophen 650 mg 650 mg PO Q8H PRN pain #20 tabs 01/17/21 tablet,extended release (Tylenol 8 Hour) metoclopramide HCl 5 mg tablet 5 mg PO BID PRN nausea and 01/17/21 (Reglan) vomiting #10 tabs sumatriptan succinate 50 mg tablet 50 mg PO Q2-4H PRN migraine 01/17/21 headache #10 tabs amoxicillin 875 mg-potassium 1 tab PO BID 10 days #20 tabs 01/17/22 clavulanate 125 mg tablet docusate sodium 50 mg capsule 50 mg PO BID Constipation #14 caps 01/17/22 (Colace Clear) ondansetron 4 mg disintegrating 4 mg PO Q8H Nausea and vomiting 01/17/22 tablet #14 tabs polyethylene glycol 3350 17 gram 17 g PO BID Constipation #14 ea 01/17/22 oral powder packet (Miralax) ondansetron 4 mg disintegrating 4 mg PO Q6H PRN nausea and 04/19/22 tablet vomiting #10 tabs lttjmnlawf-cwmccfjetuikx-kjbcgxql 1 cap PO Q8H PRN pain #10 caps 07/21/22 50 mg-300 mg-40 mg capsule (Fioricet) metoclopramide HCl 10 mg tablet 10 mg PO Q6H PRN nausea and 07/21/22 (Reglan) vomiting #10 tabs <VASU Ortega - Last Filed: 07/21/22 11:48> Allergies/Adverse Reactions: Allergies Allergy/AdvReac Type Severity Reaction Status Date / Time No Known Allergies Allergy Verified 01/17/21 00:45 [No Known Allergies*] <VASU Ortega - Last Filed: 07/21/22 11:48> [facility] Past Medical History Medical History: Medical History Migraines No known health problems <VASU Ortega - Last Filed: 07/21/22 11:48> Social History Social History: Social History Alcohol intake: unknown Patient Tobacco Use Status: Current everyday Tobacco user Smoked in Last 30 Days: Yes Use of substances other than those prescribed or required for medical reasons: Yes Substance Use Type: Marijuana Substance Use Frequency: Daily Advance Directives: No Advance Directives Information Provided: No <VASU Ortega - Last Filed: 07/21/22 11:48> Physical Exam Vital Signs: Vital Signs: Last Vital Signs Temp 96.8 F 07/21/22 11:45 Pulse 52 07/21/22 16:06 Resp 20 07/21/22 16:06 BP 131/79 07/21/22 16:06 Pulse Ox 99 07/21/22 16:06 O2 Del Method Room Air 07/21/22 16:06 BMI result Body Mass Index 31.0 <VASU Ortega - Last Filed: 07/21/22 11:48> Vital Signs: Last Vital Signs Temp 96.8 F 07/21/22 11:45 Pulse 52 07/21/22 16:06 Resp 20 07/21/22 16:06 BP 131/79 07/21/22 16:06 Pulse Ox 99 07/21/22 16:06 O2 Del Method Room Air 07/21/22 16:06 BMI result Body Mass Index 31.0 <Anthony Phelps MD - Last Filed: 07/21/22 18:04> GEN: Well developed, no acute distress, alert, oriented HEENT: Normocephalic, atraumatic, normal external ears, nose appears normal, no oropharyngeal edema or exudates Eyes: Normal to appearance Neck: Supple, no lymphadenopathy Respiratory: Talks in complete sentences, no respiratory distress, clear to auscultation bilaterally Cardiovascular: Regular rate and rhythm, no murmurs rubs or gallops Abdomen: Soft, nontender, nondistended, no guarding, no rebound Back: No CVA tenderness Extremities: No clubbing cyanosis or edema Neurologic: No focal neurologic deficits, cranial nerves 2-12 intact, strength is 5/5 bilaterally Skin: No rash <Anthony Phelps MD - Last Filed: 07/21/22 18:04> Course Course Course Narrative: RME: 36yo M w/PMHx migraines, c/o feeling unwell w/migraine CARDONA, myalgias, chills, diarrhea, N/V since yesterday. reports decreased PO intake. Took Excedrin for CARDONA around 4am w/o relief VSS, nontoxic Labs, UA, COVID/FLU, SL Zofran and Fioricet ordered Full HPI, ROS and PE to be performed by primary ED provider. <VASU Ortega - Last Filed: 07/21/22 11:48> Reevaluation(s) Reevaluation #1: The patient is receive Fioricet and Zofran. Symptoms are mildly improved. Will provide additional analgesia for the patient at this time. <Anthony Phelps MD - Last Filed: 07/21/22 18:04> Reevaluation #2: pain is 4/10. Would like to be discharged <Anthony Phelps MD - Last Filed: 07/21/22 18:04> Time: 18:04 <Anthony Phelps MD - Last Filed: 07/21/22 18:04> Medications Administered Discontinued Medications Generic Name Dose Route Start Last Admin Trade Name Freq PRN Reason Stop Dose Admin Acetaminophen/Butalbital/Caffeine 2 tab 07/21/22 11:46 07/21/22 16:04 Butalb/Acetamin/Caff 50/325/40 Tablet PO 07/21/22 11:47 2 tab ONCE ONE Administration Dexamethasone Sodium Phosphate 10 mg 07/21/22 16:19 07/21/22 16:40 Dexamethasone Sod Phosphate 10 Mg/Ml Vial IVPUSH 07/21/22 16:20 10 mg ONCE ONE Administration Sodium Chloride 1,000 mls @ 999 mls/hr 07/21/22 16:30 07/21/22 16:40 Ns IV 07/21/22 17:30 999 mls/hr .Q1H1M CARLOS Administration Ketorolac Tromethamine 15 mg 07/21/22 16:19 07/21/22 16:35 Ketorolac Tromethamine 15 Mg/Ml Vial IVPUSH 07/21/22 16:20 15 mg ONCE ONE Administration Metoclopramide HCl 10 mg 07/21/22 16:19 07/21/22 16:40 Metoclopramide Hcl 10 Mg/2 Ml Vial IVPUSH 07/21/22 16:20 10 mg ONCE ONE Administration Ondansetron HCl 4 mg 07/21/22 11:46 07/21/22 16:04 Ondansetron Odt 4 Mg Tab.Layne TRANSLINGU 07/21/22 11:47 4 mg ONCE ONE Administration <VASU Ortega - Last Filed: 07/21/22 11:48> Medications Administered Discontinued Medications Generic Name Dose Route Start Last Admin Trade Name Freq PRN Reason Stop Dose Admin Acetaminophen/Butalbital/Caffeine 2 tab 07/21/22 11:46 07/21/22 16:04 Butalb/Acetamin/Caff 50/325/40 Tablet PO 07/21/22 11:47 2 tab ONCE ONE Administration Dexamethasone Sodium Phosphate 10 mg 07/21/22 16:19 07/21/22 16:40 Dexamethasone Sod Phosphate 10 Mg/Ml Vial IVPUSH 07/21/22 16:20 10 mg ONCE ONE Administration Sodium Chloride 1,000 mls @ 999 mls/hr 07/21/22 16:30 07/21/22 16:40 Ns IV 07/21/22 17:30 999 mls/hr .Q1H1M CARLOS Administration Ketorolac Tromethamine 15 mg 07/21/22 16:19 07/21/22 16:35 Ketorolac Tromethamine 15 Mg/Ml Vial IVPUSH 07/21/22 16:20 15 mg ONCE ONE Administration Metoclopramide HCl 10 mg 07/21/22 16:19 07/21/22 16:40 Metoclopramide Hcl 10 Mg/2 Ml Vial IVPUSH 07/21/22 16:20 10 mg ONCE ONE Administration Ondansetron HCl 4 mg 07/21/22 11:46 07/21/22 16:04 Ondansetron Odt 4 Mg Tab.Rapdis TRANSLINGU 07/21/22 11:47 4 mg ONCE ONE Administration <Anthony Phelps MD - Last Filed: 07/21/22 18:04> Medical Decision Making Medical Decision Making [facility] Narrative: The Pt presents with a gradual onset headache, _ that I believe is due to a benign generalized headache, and DDx includes tension vs migraine. Given the time course of pain and the Pt?s reassuring exam, I have much lower suspicion for a more emergent etiology including intracranial bleed, stroke, acute [employer]OMET[employer] PROF[employer]OR infxn, venous sinus thrombosis, temporal arteritis, or acute angle glaucoma. Will provide basic analgesia with frequent reassessment. ? CBC, BMP ? 1L NS, Toradol, Reglan, Benadryl <Anthony Phelps MD - Last Filed: 07/21/22 18:04> Differential Diagnosis Differential Diagnoses: The differential diagnosis associated with the presentation includes (Migr lina, tension headache, cluster headache, sinus headache) <Anthony Phelps MD - Last Filed: 07/21/22 18:04> Migraine headache <Anthony Phelps MD - Last Filed: 07/21/22 18:04> Lab Data MDM Lab Attestation statement: I reviewed the patient's lab results. <Anthony Phelps MD - Last Filed: 07/21/22 18:04> Result Diagrams: 07/21/22 11:55 07/21/22 11:55 <VASU Ortega - Last Filed: 07/21/22 11:48> Labs: Lab Results 07/21/22 07/21/22 07/21/22 Range/Units 11:52 11:55 11:55 WBC 11.1 H (4.8-10.8) X10*3/uL RBC 4.86 (4.60-5.80) X10*6/uL Hgb 13.5 L (14.0-18.0) g/dl Hct 41.4 L (42.0-52.0) % MCV 85.2 (80.0-98.0) fL MCH 27.8 (27.0-33.0) pg MCHC 32.6 (31.0-36.0) g/dl RDW 13.8 (11.0-16.0) % Plt Count 233 (160-400) X10*3/uL MPV 10.0 (9.4-12.4) fL Immature Gran % (Auto) 0.2 (0.0-0.4) % Neut % (Auto) 80.7 H (45-73) % Lymph % (Auto) 14.3 L (20-40) % Mercer % (Auto) 3.8 (2-11) % Eos % (Auto) 0.5 (0-4) % Baso % (Auto) 0.5 (0-2) % Lymph # (Auto) 1.6 (1.2-4.9) X10*3/uL [place]cer # (Auto) 0.4 (0.1-1.2) X10*3/uL Eos # (Auto) 0.1 (0.0-0.4) X10*3/uL Baso # (Auto) 0.1 (0.0-0.2) X10*3/uL Abs Immat Gran (auto) 0.02 (0.00-0.03) X10*3/uL Absolute Neuts (auto) 8.9 H (2.0-8.3) x10*3/uL Absolute Nucleated RBC 0.000 (0.0-0.012) X10*3/uL Nucleated RBC % (auto) 0.0 (0.0-0.2) /100WBC Sodium 139 (135-145) mmol/L Potassium 4.0 (3.3-5.1) mmol/L Chloride 106 (96-108) mmol/L Carbon Dioxide 27 (22-29) mmol/L Anion Gap 10 L (12-20) BUN 15 (9-16) mg/dL Creatinine 0.91 (0.5-1.4) mg/dL Estim Creat Clear Calc 141.0 Estimated GFR > 60 Random Glucose 120 H (60-115) mg/dL Calcium 9.7 (8.4-10.2) mg/dL Magnesium 1.9 (1.6-2.6) mg/dL Total Bilirubin 0.5 (0.0-1.0) mg/dL Direct Bilirubin 0.2 (0.0-0.5) mg/dL AST 30 (5-37) U/L ALT 23 (0-40) U/L Alkaline Phosphatase 49 (39-117) U/L Total Protein 7.7 (6.5-8.0) g/dL Albumin 4.3 (3.5-5.0) g/dL Urine Color Dark Yellow Urine Appearance Clear Urine pH 6.5 (5.0-9.0) Ur Specific [place] >= 1.030 H (1.005-1.025) Urine Protein 30 (1+) H (Neg-Trace) mg/dL Urine Glucose (UA) Negative (Negative) mg/dL Urine Ketones 15 (Negative) mg/dL Urine Blood Negative (Negative) Urine Nitrite Negative (Negative) Ur Leukocyte Esterase Negative (Negative) Urine RBC 0-2 (0-2) /HPF Urine WBC 0-5 (0-5) /HPF Ur Squamous Epith Cells 0-2 (0-2) /HPF Urine Bacteria None Seen (None Seen) Hyaline Casts 0-2 (0-2) /LPF COVID-19 (GIO) (Negative) COVID-19 Clin Com Influenza Type A (CRISTINA) (Negative) Influenza Type B (CRISTINA) (Negative) Influenza A & B Note 07/21/22 07/21/22 Range/Units 11:56 11:56 WBC (4.8-10.8) X10*3/uL RBC (4.60-5.80) X10*6/uL Hgb (14.0-18.0) g/dl Hct (42.0-52.0) % MCV (80.0-98.0) fL MCH (27.0-33.0) pg MCHC (31.0-36.0) g/dl RDW (11.0-16.0) % Plt Count (160-400) X10*3/uL MPV (9.4-12.4) fL Immature Gran % (Auto) (0.0-0.4) % Neut % (Auto) (45-73) % Lymph % (Auto) (20-40) % Mercer % (Auto) (2-11) % Eos % (Auto) (0-4) % Baso % (Auto) (0-2) % Lymph # (Auto) (1.2-4.9) X10*3/uL [place] # (Auto) (0.1-1.2) X10*3/uL Eos # (Auto) (0.0-0.4) X10*3/uL Baso # (Auto) (0.0-0.2) X10*3/uL Abs Immat Gran (auto) (0.00-0.03) X10*3/uL Absolute Neuts (auto) (2.0-8.3) x10*3/uL Absolute Nucleated RBC (0.0-0.012) X10*3/uL Nucleated RBC % (auto) (0.0-0.2) /100WBC Sodium (135-145) mmol/L Potassium (3.3-5.1) mmol/L Chloride (96-108) mmol/L Carbon Dioxide (22-29) mmol/L Anion Gap (12-20) BUN (9-16) mg/dL Creatinine (0.5-1.4) mg/dL Estim Creat Clear Calc Estimated GFR Random Glucose (60-115) mg/dL Calcium (8.4-10.2) mg/dL Magnesium (1.6-2.6) mg/dL Total Bilirubin (0.0-1.0) mg/dL Direct Bilirubin (0.0-0.5) mg/dL AST (5-37) U/L ALT (0-40) U/L Alkaline Phosphatase (39-117) U/L Total Protein (6.5-8.0) g/dL Albumin (3.5-5.0) g/dL Urine Color Urine Appearance Urine pH (5.0-9.0) Ur Specific [place] (1.005-1.025) Urine Protein (Neg-Trace) mg/dL Urine Glucose (UA) (Negative) mg/dL Urine Ketones (Negative) mg/dL Urine Blood (Negative) Urine Nitrite (Negative) Ur Leukocyte Esterase (Negative) Urine RBC (0-2) /HPF Urine WBC (0-5) /HPF Ur Squamous Epith Cells (0-2) /HPF Urine Bacteria (None Seen) Hyaline Casts (0-2) /LPF COVID-19 (GIO) Negative (Negative) COVID-19 Clin Com See Note Influenza Type A (CRISTINA) Negative (Negative) Influenza Type B (CRISTINA) Negative (Negative) Influenza A & B Note See Note <VASU Ortega - Last Filed: 07/21/22 11:48> Lab Results 07/21/22 07/21/22 07/21/22 Range/Units 11:52 11:55 11:55 WBC 11.1 H (4.8-10.8) X10*3/uL RBC 4.86 (4.60-5.80) X10*6/uL Hgb 13.5 L (14.0-18.0) g/dl Hct 41.4 L (42.0-52.0) % MCV 85.2 (80.0-98.0) fL MCH 27.8 (27.0-33.0) pg MCHC 32.6 (31.0-36.0) g/dl RDW 13.8 (11.0-16.0) % Plt Count 233 (160-400) X10*3/uL MPV 10.0 (9.4-12.4) fL Immature Gran % (Auto) 0.2 (0.0-0.4) % Neut % (Auto) 80.7 H (45-73) % Lymph % (Auto) 14.3 L (20-40) % Mercer % (Auto) 3.8 (2-11) % Eos % (Auto) 0.5 (0-4) % Baso % (Auto) 0.5 (0-2) % Lymph # (Auto) 1.6 (1.2-4.9) X10*3/uL [place] # (Auto) 0.4 (0.1-1.2) X10*3/uL Eos # (Auto) 0.1 (0.0-0.4) X10*3/uL Baso # (Auto) 0.1 (0.0-0.2) X10*3/uL Abs Immat Gran (auto) 0.02 (0.00-0.03) X10*3/uL Absolute Neuts (auto) 8.9 H (2.0-8.3) x10*3/uL Absolute Nucleated RBC 0.000 (0.0-0.012) X10*3/uL Nucleated RBC % (auto) 0.0 (0.0-0.2) /100WBC Sodium 139 (135-145) mmol/L Potassium 4.0 (3.3-5.1) mmol/L Chloride 106 (96-108) mmol/L Carbon Dioxide 27 (22-29) mmol/L Anion Gap 10 L (12-20) BUN 15 (9-16) mg/dL Creatinine 0.91 (0.5-1.4) mg/dL Estim Creat Clear Calc 141.0 Estimated GFR > 60 Random Glucose 120 H (60-115) mg/dL Calcium 9.7 (8.4-10.2) mg/dL Magnesium 1.9 (1.6-2.6) mg/dL Total Bilirubin 0.5 (0.0-1.0) mg/dL Direct Bilirubin 0.2 (0.0-0.5) mg/dL AST 30 (5-37) U/L ALT 23 (0-40) U/L Alkaline Phosphatase 49 (39-117) U/L Total Protein 7.7 (6.5-8.0) g/dL Albumin 4.3 (3.5-5.0) g/dL Urine Color Dark Yellow Urine Appearance Clear Urine pH 6.5 (5.0-9.0) Ur Specific [place] >= 1.030 H (1.005-1.025) Urine Protein 30 (1+) H (Neg-Trace) mg/dL Urine Glucose (UA) Negative (Negative) mg/dL Urine Ketones 15 (Negative) mg/dL Urine Blood Negative (Negative) Urine Nitrite Negative (Negative) Ur Leukocyte Esterase Negative (Negative) Urine RBC 0-2 (0-2) /HPF Urine WBC 0-5 (0-5) /HPF Ur Squamous Epith Cells 0-2 (0-2) /HPF Urine Bacteria None Seen (None Seen) Hyaline Casts 0-2 (0-2) /LPF COVID-19 (GIO) (Negative) COVID-19 Clin Com Influenza Type A (CRISTINA) (Negative) Influenza Type B (CRISTINA) (Negative) Influenza A & B Note 07/21/22 07/21/22 Range/Units 11:56 11:56 WBC (4.8-10.8) X10*3/uL RBC (4.60-5.80) X10*6/uL Hgb (14.0-18.0) g/dl Hct (42.0-52.0) % MCV (80.0-98.0) fL MCH (27.0-33.0) pg MCHC (31.0-36.0) g/dl RDW (11.0-16.0) % Plt Count (160-400) X10*3/uL MPV (9.4-12.4) fL Immature Gran % (Auto) (0.0-0.4) % Neut % (Auto) (45-73) % Lymph % (Auto) (20-40) % [place] % (Auto) (2-11) % Eos % (Auto) (0-4) % Baso % (Auto) (0-2) % Lymph # (Auto) (1.2-4.9) X10*3/uL [place] # (Auto) (0.1-1.2) X10*3/uL Eos # (Auto) (0.0-0.4) X10*3/uL Baso # (Auto) (0.0-0.2) X10*3/uL Abs Immat Gran (auto) (0.00-0.03) X10*3/uL Absolute Neuts (auto) (2.0-8.3) x10*3/uL Absolute Nucleated RBC (0.0-0.012) X10*3/uL Nucleated RBC % (auto) (0.0-0.2) /100WBC Sodium (135-145) mmol/L Potassium (3.3-5.1) mmol/L Chloride (96-108) mmol/L Carbon Dioxide (22-29) mmol/L Anion Gap (12-20) BUN (9-16) mg/dL Creatinine (0.5-1.4) mg/dL Estim Creat Clear Calc Estimated GFR Random Glucose (60-115) mg/dL Calcium (8.4-10.2) mg/dL Magnesium (1.6-2.6) mg/dL Total Bilirubin (0.0-1.0) mg/dL Direct Bilirubin (0.0-0.5) mg/dL AST (5-37) U/L ALT (0-40) U/L Alkaline Phosphatase (39-117) U/L Total Protein (6.5-8.0) g/dL Albumin (3.5-5.0) g/dL Urine Color Urine Appearance Urine pH (5.0-9.0) Ur Specific [place] (1.005-1.025) Urine Protein (Neg-Trace) mg/dL Urine Glucose (UA) (Negative) mg/dL Urine Ketones (Negative) mg/dL Urine Blood (Negative) Urine Nitrite (Negative) Ur Leukocyte Esterase (Negative) Urine RBC (0-2) /HPF Urine WBC (0-5) /HPF Ur Squamous Epith Cells (0-2) /HPF Urine Bacteria (None Seen) Hyaline Casts (0-2) /LPF COVID-19 (GIO) Negative (Negative) COVID-19 Clin Com See Note Influenza Type A (CRISTINA) Negative (Negative) Influenza Type B (CRISTINA) Negative (Negative) Influenza A & B Note See Note <Anthony Phelps MD - Last Filed: 07/21/22 18:04> Tests considered The following testing was considered but not selected: CT head <Anthony Phelps MD - Last Filed: 07/21/22 18:04> Prescription Management I considered prescription management with: Pain Medication <Anthony Phelps MD - Last Filed: 07/21/22 18:04> Discharge Plan Discharge Clinical Impression: Migraines <VASU Ortega - Last Filed: 07/21/22 11:48> Patient Disposition: Home, Self-Care <VASU Ortega - Last Filed: 07/21/22 11:48> Instructions: Migraine Headache (ED) <VASU Ortega - Last Filed: 07/21/22 11:48> Prescriptions: New metoclopramide HCl [Reglan] 10 mg tablet 10 mg PO Q6H PRN (Reason: nausea and vomiting) Qty: 10 0RF [id number] [Fioricet] 50-300-40 mg capsule 1 cap PO Q8H PRN (Reason: pain) Qty: 10 0RF No Action diphenhydramine HCl [Benadryl] 25 mg capsule 25 mg PO TID PRN (Reason: sleep) Qty: 14 0RF ketorolac 10 mg tablet 10 mg PO Q8H PRN (Reason: pain) Qty: 10 0RF Rx Instructions: Given 1st dose in the ED metoclopramide HCl [Reglan] 10 mg tablet 10 mg PO Q6H PRN (Reason: nausea and vomiting) Qty: 15 0RF amoxicillin-pot clavulanate 875-125 mg tablet 1 tab PO BID 10 Days Qty: 20 0RF Colace Clear 50 mg capsule 50 mg PO BID Qty: 14 0RF polyethylene glycol 3350 [Miralax] 17 gram powder in packet 17 g PO BID Qty: 14 0RF ondansetron 4 mg tablet,disintegrating 4 mg PO Q8H Qty: 14 0RF metoclopramide HCl [Reglan] 5 mg tablet 5 mg PO BID PRN (Reason: nausea and vomiting) Qty: 10 0RF sumatriptan succinate 50 mg tablet 50 mg PO Q2-4H PRN (Reason: migraine headache) Qty: 10 0RF Rx Instructions: do not exceed 4 doses per 24 hrs acetaminophen [Tylenol 8 Hour] 650 mg tablet extended release 650 mg PO Q8H PRN (Reason: pain) Qty: 20 0RF ondansetron 4 mg tablet,disintegrating 4 mg PO Q6H PRN (Reason: nausea and vomiting) Qty: 10 0RF <VASU Ortega - Last Filed: 07/21/22 11:48> Referrals: Katherine Martinez MD [Primary Care Provider] - 1 week <VASU Ortega - Last Filed: 07/21/22 11:48>
[2022-07-21 12:03] LABS: MANUAL DIFF FLAG NO
[2022-07-21 12:06] LABS: Appearance Urine Clear; Color Urine Dark Yellow; Glucose Urine UA Negative (Negative); Leukocyte Esterase Urine Negative (Negative); Nitrite Urine Negative (Negative); PH 6.5 (5.0-9.0); Specific Gravity - Urine >= 1.030 (1.005-1.025); UMIC TRIGGER UACC YES; Urine Blood Negative (Negative); Urine Ketones 15 mg/dL (Negative); Urine Protein 30 (1+) mg/dL (Neg-Trace)
[2022-07-21 12:06] LABS: Basophils Absolute Auto 0.1 X10*3/uL (0.0-0.2); Basophils Percent Auto 0.5 % (0-2); Eosinophils Absolute Auto 0.1 X10*3/uL (0.0-0.4); Eosinophils Percent Auto 0.5 % (0-4); Hematocrit 41.4 % (42.0-52.0); Hemoglobin 13.5 g/dl (14.0-18.0); Imm Gran Abs Auto 0.02 X10*3/uL (0.00-0.03); Imm Gran Pct Auto 0.2 % (0.0-0.4); Lymphocytes Absolute Auto 1.6 X10*3/uL (1.2-4.9); Lymphocytes Percent Auto 14.3 % (20-40); Mean Corpuscular HGB Conc 32.6 g/dl (31.0-36.0); Mean Corpuscular Hemoglobin 27.8 pg (27.0-33.0); Mean Corpuscular Volume 85.2 fL (80.0-98.0); Monocytes Absolute Auto 0.4 X10*3/uL (0.1-1.2); Monocytes Percent Auto 3.8 % (2-11); Neutrophils Absolute Auto 8.9 x10*3/uL (2.0-8.3); Neutrophils Percent Auto 80.7 % (45-73); Platelet Count 233 X10*3/uL (160-400); Red Blood Count 4.86 X10*6/uL (4.60-5.80); Red Cell Distribution Width 13.8 % (11.0-16.0); White Blood Count 11.1 X10*3/uL (4.8-10.8)
[2022-07-21 12:11] LABS: Bacteria Urine None Seen (None Seen); Hyaline Casts Urine 0-2 /LPF (0-2); RBC Urine 0-2 /HPF (0-2); Squamous Epithelial Cell Urine 0-2 /HPF (0-2); WBC Urine 0-5 /HPF (0-5)
[2022-07-21 12:20] LABS: Alanine Aminotransferase 23 U/L (0-40); Albumin Level 4.3 g/dL (3.5-5.0); Alkaline Phosphatase 49 U/L (39-117); Anion Gap 10 (12-20); Aspartate Amino Transferase 30 U/L (5-37); Bilirubin Direct 0.2 mg/dL (0.0-0.5); Bilirubin Total 0.5 mg/dL (0.0-1.0); Blood Urea Nitrogen 15 mg/dL (9-16); Calcium 9.7 mg/dL (8.4-10.2); Carbon Dioxide 27 mmol/L (22-29); Chloride 106 mmol/L (96-108); Estimated Glomerular Filt Rate > 60; Glucose Random 120 mg/dL (60-115); Magnesium 1.9 mg/dL (1.6-2.6); Sodium 139 mmol/L (135-145); Total Protein 7.7 g/dL (6.5-8.0)
[2022-07-21 12:27] LABS: IDNOW Serial# BCCEAD1C; Influenza A Negative (Negative); Influenza B2 Negative (Negative)
[2022-07-21 12:28] LABS: COVID-19 Test Negative (Negative); IDNOW Serial# 08D9AD1C
[2022-07-21] MEDS: Ondansetron ODT 4 MG TAB.RAPDIS TRANSLINGU (16:04)
[2022-07-21] MEDS: Butalb/Acetamin/Caff 50/325/40 TABLET 2 TAB PO (16:04)
[2022-07-21 16:06] VITALS: BP 131/79; PULSE 52; RESP 20; O2SAT 99
[2022-07-21] MEDS: Ketorolac Tromethamine 15 MG/ML VIAL IVPUSH (16:35)
[2022-07-21] MEDS: dexAMETHasone sod phosphate 10 MG/ML VIAL IVPUSH (16:40)
[2022-07-21] MEDS: 0.9 % Sodium Chloride 1,000 ML 999 ML IV (16:40)
[2022-07-21] MEDS: Metoclopramide HCl 10 MG/2 ML VIAL IVPUSH (16:40)
== END 2022-07-21 18:29 | disposition home or self-care (01) ==
PROVIDERS: Physician Assistant; Emergency Provider Emergency Medicine; PCP Family Medicine
DX: G43.909 Migraine, unspecified, not intractable, without status migrainosus (principal); Z20.822 Contact with and (suspected) exposure to COVID-19; F17.200 Nicotine dependence, unspecified, uncomplicated; F12.90 Cannabis use, unspecified, uncomplicated; Z79.899 Other long term (current) drug therapy
CPT/HCPCS: 36415; 80048; 80076; 81001; 83735; 85025; 87502; 87635; 96374; 96375; 99284; J1100; J1885; J2765

== ENCOUNTER 2022-10-19 06:05 | Emergency (ER) | payer MEDICAID, SELFPAY ==
[2022-10-19 06:18] VITALS: BP 105/72; PULSE 79; RESP 20; TEMP 36.3; O2SAT 98; BMI 31.4
[2022-10-19 06:33] LABS: MANUAL DIFF FLAG NO
[2022-10-19 06:35] LABS: Basophils Absolute Auto 0.1 X10*3/uL (0.0-0.2); Eosinophils Absolute Auto 0.1 X10*3/uL (0.0-0.4); Eosinophils Percent Auto 2.4 % (0-4); Hematocrit 38.6 % (42.0-52.0); Hemoglobin 12.8 g/dl (14.0-18.0); Imm Gran Abs Auto 0.02 X10*3/uL (0.00-0.03); Imm Gran Pct Auto 0.4 % (0.0-0.4); Lymphocytes Absolute Auto 1.9 X10*3/uL (1.2-4.9); Lymphocytes Percent Auto 37.7 % (20-40); Mean Corpuscular HGB Conc 33.2 g/dl (31.0-36.0); Mean Corpuscular Hemoglobin 28.8 pg (27.0-33.0); Mean Corpuscular Volume 86.7 fL (80.0-98.0); Mean Platelet Volume 9.7 fL (9.4-12.4); Monocytes Absolute Auto 0.4 X10*3/uL (0.1-1.2); Monocytes Percent Auto 7.7 % (2-11); Neutrophils Absolute Auto 2.6 x10*3/uL (2.0-8.3); Neutrophils Percent Auto 50.8 % (45-73); Platelet Count 230 X10*3/uL (160-400); Red Blood Count 4.45 X10*6/uL (4.60-5.80); Red Cell Distribution Width 13.8 % (11.0-16.0); White Blood Count 5.1 X10*3/uL (4.8-10.8)
[2022-10-19 06:48] LABS: Alanine Aminotransferase 14 U/L (0-40); Alkaline Phosphatase 48 U/L (39-117); Anion Gap 14 (12-20); Aspartate Amino Transferase 17 U/L (5-37); Bilirubin Direct < 0.2 mg/dL (0.0-0.5); Bilirubin Total 0.2 mg/dL (0.0-1.0); Blood Urea Nitrogen 13 mg/dL (9-16); Calcium 9.2 mg/dL (8.4-10.2); Carbon Dioxide 22 mmol/L (22-29); Chloride 107 mmol/L (96-108); Creatinine Clr Calc Pharmacy 138.9; Estimated Glomerular Filt Rate > 60; Glucose Random 140 mg/dL (60-115); Lipase 14 U/L (8-78); Potassium 3.8 mmol/L (3.3-5.1); Sodium 139 mmol/L (135-145); Total Protein 7.5 g/dL (6.5-8.0)
--- NOTE | 2022-10-19 06:59 | ED.NAVMDI ---
HPI - Nausea/Vomiting/Diarrhea General Chief complaint: Nausea/Vomiting/Diarrhea Stated complaint: gen med Time Seen by Provider: 10/19/22 06:56 Source: patient Mode of arrival: ambulatory Limitations: no limitations History of Present Illness HPI Narrative: 37 yo male with history of OUD on methadone here with complaints of rhinorrhea, nasal congestion, cough, body aches starting yesterday. Last evening had several episodes of diarrhea/vomiting with subsequent generalized headache. NO abdominal pain, fever, skin rash. neck pain/stiffness. No recent travel or sick contact. Daughter was sick with similar symptoms earlier this week Associated nausea: Yes Related Data Previous Rx's Medication Instructions Recorded diphenhydramine HCl 25 mg capsule 25 mg PO TID PRN sleep #14 caps 08/08/20 (Benadryl) ketorolac 10 mg tablet 10 mg PO Q8H PRN pain #10 tabs 08/08/20 metoclopramide HCl 10 mg tablet 10 mg PO Q6H PRN nausea and 08/08/20 (Reglan) vomiting #15 tabs acetaminophen 650 mg 650 mg PO Q8H PRN pain #20 tabs 01/17/21 tablet,extended release (Tylenol 8 Hour) metoclopramide HCl 5 mg tablet 5 mg PO BID PRN nausea and 01/17/21 (Reglan) vomiting #10 tabs sumatriptan succinate 50 mg tablet 50 mg PO Q2-4H PRN migraine 01/17/21 headache #10 tabs amoxicillin 875 mg-potassium 1 tab PO BID 10 days #20 tabs 01/17/22 clavulanate 125 mg tablet docusate sodium 50 mg capsule 50 mg PO BID Constipation #14 caps 01/17/22 (Colace Clear) ondansetron 4 mg disintegrating 4 mg PO Q8H Nausea and vomiting 01/17/22 tablet #14 tabs polyethylene glycol 3350 17 gram 17 g PO BID Constipation #14 ea 01/17/22 oral powder packet (Miralax) ondansetron 4 mg disintegrating 4 mg PO Q6H PRN nausea and 04/19/22 tablet vomiting #10 tabs ecgacsvcrw-lsvgoyyceeiir-inijaxsn 1 cap PO Q8H PRN pain #10 caps 07/21/22 50 mg-300 mg-40 mg capsule (Fioricet) metoclopramide HCl 10 mg tablet 10 mg PO Q6H PRN nausea and 07/21/22 (Reglan) vomiting #10 tabs Allergies Allergy/AdvReac Type Severity Reaction Status Date / Time No Known Allergies Allergy Verified 10/19/22 06:23 [No Known Allergies*] Review of Systems Review of Systems: Yes all other systems are reviewed and are negative Constitutional: Constitutional: Reports no additional constitutional complaints, Reports body ache(s), Denies chills, Denies fever(s), Reports headache(s) and Denies weakness Eyes: Eyes: Reports no additional eye complaints and Denies change in vision ENT: Reports system reviewed and no additional complaints, except as documented, Denies dizziness, Reports headache(s), Reports nasal congestion, Reports nasal discharge and Denies neck pain Cardiovascular: Cardiovascular: Reports no additional cardiovascular complaints, Denies chest pain, Denies leg edema and Denies dyspnea Respiratory: Respiratory: Reports no additional respiratory complaints, Reports cough and Denies dyspnea Gastrointestinal: Gastrointestinal: Reports no additional gastrointestinal complaints, Denies abdominal pain, Reports diarrhea, Reports nausea and Reports vomiting Genitourinary: Genitourinary: Denies urinary incontinence Musculoskeletal: Musculoskeletal: Reports no additional musculoskeletal complaints, Denies back pain, Denies arthralgias, Denies joint swelling, Denies neck pain, Denies numbness and Denies tingling Integumentary/Breasts: Skin/Breast: Reports system reviewed and no additional complaints, except as docu and Denies rash Neurologic: Reports system reviewed and no additional complaints, except as documented, Denies Abnormal speech present, Denies dizziness, Reports headache(s), Denies numbness, Denies tingling and Denies weakness PMF Past Medical History Attestation statement: The following information was validated with the patient. Source: old records reviewed and nursing notes reviewed Medical History Migraines No known health problems Social History Social History Alcohol intake: never Patient Tobacco Use Status: Current everyday Tobacco user Smoked in Last 30 Days: Yes Use of substances other than those prescribed or required for medical reasons: Yes Substance Use Type: Marijuana Advance Directives: No Advance Directives Information Provided: Yes Physical Exam Vital Signs: Vital Signs: Last Vital Signs Temp 97.5 F 10/19/22 07:31 Pulse 57 10/19/22 07:31 Resp 16 10/19/22 07:31 BP 107/61 10/19/22 07:31 Pulse Ox 98 10/19/22 07:31 O2 Del Method Room Air 10/19/22 07:31 BMI result Body Mass Index 31.4 Const: General: cooperative, healthy appearing, comfortable and no acute distress Orientation/consciousness: patient oriented x3 Limitations: no limitations HEENT: Head: Yes normal to inspection Ears: hearing grossly normal bilaterally and TM's normal bilaterally General nose exam: Normal external nose present Face and sinus: Yes normal facial exam Mouth: Normal oral and palatal mucosa present Throat: Yes posterior oropharynx normal, Yes tonsils normal and Yes uvula midline Eyes: General: appearance normal, both eyes and all related structures Pupils: Equal, round and reactive pupils present Neck: Neck: Yes normal visual inspection, Yes full ROM, Yes no lymphadenopathy and Yes no meningeal signs Chest: Chest palpation & inspection: normal inspection of the chest Resp: Effort & Inspection: normal respiratory effort Auscultation: clear to auscultation bilaterally Cardio: Rate: regular rate Rhythm: regular rhythm Peripheral pulses: Peripheral pulses 2+ throughout GI: Inspection: Yes normal to inspection and No distended Palpation (GI): Soft to palpation, nontender and no guarding Auscultation: normal bowel sounds Back/Spine/Pelvis: Thoracic/Lumbar Spine: thoracic and lumbar spine normal to inspection Skin: General skin exam: no rashes or lesions noted Neuro: General: patient oriented x3, no meningeal signs, no focal motor deficits and normal sensation to monofilament Cranial nerves: Yes Equal, round and reactive pupils present Cognition (Neuro): normal cognition Speech: No Abnormal speech present Gait exam (Neuro): Normal gait present Motor exam (neuro): 5/5 motor strength present throughout Extrem: General: Yes normal to inspection, Yes no pedal edema and Yes no calf tenderness Course Course Course Narrative: 0915-Feeling improved. Tolerating PO. Labs reviewed and unremarkable. COVID screen negative. Likely viral syndrome. Reviewed worrisome signs/symptoms with patient and when to seek additional care. Comfortable with plan for discharge home. Medications Administered Discontinued Medications Generic Name Dose Route Start Last Admin Trade Name Freq PRN Reason Stop Dose Admin Sodium Chloride 1,000 mls @ 999 mls/hr 10/19/22 07:07 10/19/22 08:10 Ns IV 10/19/22 08:07 999 mls/hr .Q1H1M STA Administration Ketorolac Tromethamine 30 mg 10/19/22 07:07 10/19/22 08:10 Ketorolac Tromethamine 30 Mg/Ml Vial IVPUSH 10/19/22 07:08 30 mg ONCE ONE Administration Ondansetron HCl 4 mg 10/19/22 07:07 10/19/22 08:10 Ondansetron Hcl 4 Mg/2 Ml Vial IVPUSH 10/19/22 07:08 4 mg ONCE ONE Administration Medical Decision Making Medical Decision Making [facility] Narrative: 37 yo male with history of OUD on methadone here with complaints of URI symptoms/body aches starting yesterday, vomiting/diarrhea and subsequent headache overnight. VSS, afebrile, no focal abdominal pain. Likely viral syndrome WIll obtain labs, UA, COVID testing. Will place PIV, give antiemetic, analgesia, IVF Differential Diagnosis Differential Diagnoses: The differential diagnosis associated with the presentation includes gastroenteritis Low concern for acute appendicitis, testicular torsion, SBO Lab Data [facility] Lab Attestation statement: I reviewed the patient's lab results. 10/19/22 06:28 10/19/22 06:28 Labs: Lab Results 10/19/22 10/19/22 10/19/22 Range/Units 06:28 06:28 06:28 WBC 5.1 (4.8-10.8) X10*3/uL RBC 4.45 L (4.60-5.80) X10*6/uL Hgb 12.8 L (14.0-18.0) g/dl Hct 38.6 L (42.0-52.0) % MCV 86.7 (80.0-98.0) fL MCH 28.8 (27.0-33.0) pg MCHC 33.2 (31.0-36.0) g/dl RDW 13.8 (11.0-16.0) % Plt Count 230 (160-400) X10*3/uL MPV 9.7 (9.4-12.4) fL Immature Gran % (Auto) 0.4 (0.0-0.4) % Neut % (Auto) 50.8 (45-73) % Lymph % (Auto) 37.7 (20-40) % [place] % (Auto) 7.7 (2-11) % Eos % (Auto) 2.4 (0-4) % Baso % (Auto) 1.0 (0-2) % Lymph # (Auto) 1.9 (1.2-4.9) X10*3/uL [place] # (Auto) 0.4 (0.1-1.2) X10*3/uL Eos # (Auto) 0.1 (0.0-0.4) X10*3/uL Baso # (Auto) 0.1 (0.0-0.2) X10*3/uL Abs Immat Gran (auto) 0.02 (0.00-0.03) X10*3/uL Absolute Neuts (auto) 2.6 (2.0-8.3) x10*3/uL Absolute Nucleated RBC 0.000 (0.0-0.012) X10*3/uL Nucleated RBC % (auto) 0.0 (0.0-0.2) /100WBC Sodium 139 (135-145) mmol/L Potassium 3.8 (3.3-5.1) mmol/L Chloride 107 (96-108) mmol/L Carbon Dioxide 22 (22-29) mmol/L Anion Gap 14 (12-20) BUN 13 (9-16) mg/dL Creatinine 0.92 (0.5-1.4) mg/dL Estim Creat Clear Calc 138.9 Estimated GFR > 60 Random Glucose 140 H (60-115) mg/dL Calcium 9.2 (8.4-10.2) mg/dL Total Bilirubin 0.2 (0.0-1.0) mg/dL Direct Bilirubin < 0.2 (0.0-0.5) mg/dL AST 17 (5-37) U/L ALT 14 (0-40) U/L Alkaline Phosphatase 48 (39-117) U/L Total Protein 7.5 (6.5-8.0) g/dL Albumin 4.0 (3.5-5.0) g/dL Lipase 14 (8-78) U/L COVID-19 (GIO) Negative (Negative) COVID-19 Clin Com See Note Discharge Plan Discharge Clinical Impression: Acute viral syndrome Patient Disposition: Home, Self-Care Instructions: Viral Syndrome (ED) Additional Instructions: Covid test is negative Alternate motrin/tylenol for pain as needed Increase fluids, rest Prescriptions: No Action diphenhydramine HCl [Benadryl] 25 mg capsule 25 mg PO TID PRN (Reason: sleep) Qty: 14 0RF ketorolac 10 mg tablet 10 mg PO Q8H PRN (Reason: pain) Qty: 10 0RF Rx Instructions: Given 1st dose in the ED metoclopramide HCl [Reglan] 10 mg tablet 10 mg PO Q6H PRN (Reason: nausea and vomiting) Qty: 15 0RF amoxicillin-pot clavulanate 875-125 mg tablet 1 tab PO BID 10 Days Qty: 20 0RF Colace Clear 50 mg capsule 50 mg PO BID Qty: 14 0RF polyethylene glycol 3350 [Miralax] 17 gram powder in packet 17 g PO BID Qty: 14 0RF ondansetron 4 mg tablet,disintegrating 4 mg PO Q8H Qty: 14 0RF metoclopramide HCl [Reglan] 5 mg tablet 5 mg PO BID PRN (Reason: nausea and vomiting) Qty: 10 0RF sumatriptan succinate 50 mg tablet 50 mg PO Q2-4H PRN (Reason: migraine headache) Qty: 10 0RF Rx Instructions: do not exceed 4 doses per 24 hrs acetaminophen [Tylenol 8 Hour] 650 mg tablet extended release 650 mg PO Q8H PRN (Reason: pain) Qty: 20 0RF ondansetron 4 mg tablet,disintegrating 4 mg PO Q6H PRN (Reason: nausea and vomiting) Qty: 10 0RF metoclopramide HCl [Reglan] 10 mg tablet 10 mg PO Q6H PRN (Reason: nausea and vomiting) Qty: 10 0RF ueulyykrkp-fqrkffspxvlws-qlqq [Fioricet] 50-300-40 mg capsule 1 cap PO Q8H PRN (Reason: pain) Qty: 10 0RF Referrals: Physician,Unknown J [Primary Care Provider] - 1 week (as needed) Stand Alone Forms: Work/School Release
[2022-10-19 07:14] LABS: COVID-19 Test Negative (Negative); IDNOW Serial# BCCEAD1C
[2022-10-19 07:31] VITALS: BP 107/61; PULSE 57; RESP 16; TEMP 36.4; O2SAT 98
[2022-10-19] MEDS: Ketorolac Tromethamine 30 MG/ML VIAL IVPUSH (08:10)
[2022-10-19] MEDS: ondansetron HCL 4 MG/2 ML VIAL IVPUSH (08:10)
[2022-10-19] MEDS: 0.9 % Sodium Chloride 1,000 ML 999 ML IV (08:10)
== END 2022-10-19 09:34 | disposition home or self-care (01) ==
PROVIDERS: Emergency Provider Emergency Medicine Emergency Medical Services
DX: B34.9 Viral infection, unspecified (principal); F17.210 Nicotine dependence, cigarettes, uncomplicated; R11.2 Nausea with vomiting, unspecified; Z71.6 Tobacco abuse counseling; Z20.828 Contact with and (suspected) exposure to other viral communicable diseases; Z20.822 Contact with and (suspected) exposure to COVID-19; Z79.899 Other long term (current) drug therapy
CPT/HCPCS: 36415; 80048; 80076; 83690; 85025; 87635; 96361; 96374; 96375; 99284; J1885; J2405

== ENCOUNTER 2022-11-12 12:43 | Emergency (ER) | payer MEDICAID, SELFPAY ==
--- NOTE | ~2022-11-12 | XR_ITS ---
EXAMINATION: XR ABDOMEN KUB CLINICAL INDICATION: Abdominal pain and constipation COMPARISON: None available. TECHNIQUE: AP view of the abdomen. FINDINGS: Scattered stool seen throughout the colon without distention. The small bowel loops unremarkable. No radiopaque gallstones or radiopaque renal calculi seen. No organomegaly. No gross bony abnormality. XR/XR KUB IMPRESSION: Except for mild constipation the exam is unremarkable.
[2022-11-12 12:58] VITALS: BP 136/76; PULSE 84; RESP 18; TEMP 37.5; O2SAT 98; BMI 32.4
--- NOTE | 2022-11-12 13:03 | ED.GENADULT ---
HPI - General Adult General Chief complaint: Nausea/Vomiting/Diarrhea Stated complaint: constipated, dehydrated, vomiting Time Seen by Provider: 11/12/22 13:41 Source: patient and RN notes reviewed Mode of arrival: ambulatory Limitations: no limitations History of Present Illness HPI narrative: This is a 37-year-old male, with no known medical problems, presenting to the emergency department with complaints of nausea, vomiting, and constipation x3 days. Patient reports that he vomited over 7 times today and has not had a bowel movement in 3 days. He states that his daughter was sick with similar symptoms several days ago. He also reports that he smokes ?a lot of blunts? of marijuana a day. Patient endorses a headache in believes that this is due to dehydration. He states that he has been unable to tolerate any liquids by mild secondary to nausea and vomiting. He denies any fevers, chills, chest pain, shortness breast, abdominal pain, diarrhea. Denies taking any medications at home to treat his current symptoms. No other complaints or concerns at this time. MD complaint: Nausea, vomiting Onset (ago): day(s) Location: abdomen Radiation: non-radiation Quality: aching Pain Consistency: constant Relieving factors: none Exacerbating factors: none Associated symptoms: nausea/vomiting Treatments prior to arrival: none Related Data Previous Rx's Medication Instructions Recorded diphenhydramine HCl 25 mg capsule 25 mg PO TID PRN sleep #14 caps 08/08/20 (Benadryl) ketorolac 10 mg tablet 10 mg PO Q8H PRN pain #10 tabs 08/08/20 metoclopramide HCl 10 mg tablet 10 mg PO Q6H PRN nausea and 08/08/20 (Reglan) vomiting #15 tabs acetaminophen 650 mg 650 mg PO Q8H PRN pain #20 tabs 01/17/21 tablet,extended release (Tylenol 8 Hour) metoclopramide HCl 5 mg tablet 5 mg PO BID PRN nausea and 01/17/21 (Reglan) vomiting #10 tabs sumatriptan succinate 50 mg tablet 50 mg PO Q2-4H PRN migraine 01/17/21 headache #10 tabs amoxicillin 875 mg-potassium 1 tab PO BID 10 days #20 tabs 01/17/22 clavulanate 125 mg tablet docusate sodium 50 mg capsule 50 mg PO BID Constipation #14 caps 01/17/22 (Colace Clear) ondansetron 4 mg disintegrating 4 mg PO Q8H Nausea and vomiting 01/17/22 tablet #14 tabs polyethylene glycol 3350 17 gram 17 g PO BID Constipation #14 ea 01/17/22 oral powder packet (Miralax) ondansetron 4 mg disintegrating 4 mg PO Q6H PRN nausea and 04/19/22 tablet vomiting #10 tabs wofvetcifd-zkijmheudsbda-qlycxwfl 1 cap PO Q8H PRN pain #10 caps 07/21/22 50 mg-300 mg-40 mg capsule (Fioricet) metoclopramide HCl 10 mg tablet 10 mg PO Q6H PRN nausea and 07/21/22 (Reglan) vomiting #10 tabs Allergies Allergy/AdvReac Type Severity Reaction Status Date / Time No Known Allergies Allergy Verified 10/19/22 06:23 [No Known Allergies*] Review of Systems Review of Systems: Yes all other systems are reviewed and are negative Constitutional: Constitutional: Reports as per [facility] Past Medical History Medical History Migraines No known health problems Social History Social History Alcohol intake: never Patient Tobacco Use Status: Current everyday Tobacco user Smoked in Last 30 Days: Yes Use of substances other than those prescribed or required for medical reasons: Yes Substance Use Type: Marijuana Advance Directives: No Advance Directives Information Provided: Yes Physical Exam ED Vital Signs: Vital Signs - 24 hr 11/12/22 12:58 11/12/22 13:31 11/12/22 17:37 Temperature 99.5 F 98.4 F Pulse Rate 84 73 68 Respiratory Rate 18 16 16 Blood Pressure 136/76 117/77 122/64 Pulse Oximetry 98 96 97 Oxygen Delivery Method Room Air Room Air Room Air BMI result Body Mass Index 32.4 Const General: cooperative, comfortable and no acute distress Orientation/consciousness: patient oriented x3 Limitations: no limitations HENMT Head: Yes normal to inspection, Yes normocephalic and Yes atraumatic Ears: hearing grossly normal bilaterally General nose exam: Normal external nose present Face and sinus: Yes normal facial exam Mouth: Normal oral and palatal mucosa present, oropharynx normal and moist mucous membranes Throat: Yes posterior oropharynx normal Eyes General: appearance normal, both eyes and all related structures Eyelids: Yes eyelids normal Conjunctivae: conjunctivae normal Sclerae: sclerae normal Pupils: Equal, round and reactive pupils present EOM: EOMs intact bilaterally Neck Neck: Yes normal visual inspection, Yes full ROM and Yes no lymphadenopathy Lymphatic: no lymphadenopathy noted Chest Chest palpation & inspection: normal inspection of the chest Resp Effort & Inspection: normal respiratory effort and able to speak in complete sentences Auscultation: clear to auscultation bilaterally, no crackles, no rales, no rhonchi and no wheezes Cardio Rate: regular rate Rhythm: regular rhythm Heart sounds: S1 normal heart sound present and S2 normal heart sound present GI Other: Abdomen is soft, nontender, nondistended, normoactive bowel sounds present in all 4 quadrants. Inspection: Yes normal to inspection Skin General skin exam: no rashes or lesions noted Trauma: no lacerations or abrasions Wounds: no wounds Neuro General: patient oriented x3 and moves all extremities Cranial nerves: Yes Equal, round and reactive pupils present Extrem General: Yes normal to inspection Right upper extremity: normal to inspection Left upper extremity: normal to inspection Right lower extremity: normal to inspection Left lower extremity: normal to inspection Course Course Course Narrative: RME: 37 yold male presents to the ED for constipation for the past 3 days and vomitting 7 times this morning with abdominal cramping. patient state passing gas. labs and KUB ordered Reevaluation(s) Reevaluation #1: Patient's symptoms have improved, new headache has since resolved. Nausea has improved will p.o. trial. Time: 16:47 Reevaluation #2: P.o. trial with jakub elsi and crackers, patient unable to tolerate given worsening nausea, patient medicated with Reglan and Benadryl. Sign out given to my colleague Teresa Shin NP pending PO trial and re-evaluation. Time: 17:19 Medications Administered Discontinued Medications Generic Name Dose Route Start Last Admin Trade Name Freq PRN Reason Stop Dose Admin Diphenhydramine HCl 25 mg 11/12/22 17:20 11/12/22 17:32 Diphenhydramine Hcl 50 Mg/Ml Vial IVPUSH 11/12/22 17:21 25 mg ONCE ONE Administration Sodium Chloride 1,000 mls @ 999 mls/hr 11/12/22 14:34 11/12/22 16:36 Ns IV 11/12/22 15:34 Infused .Q1H1M ONE Infusion Sodium Chloride 1,000 mls @ 999 mls/hr 11/12/22 17:13 11/12/22 19:16 Ns IV 11/12/22 18:13 Infused .Q1H1M ONE Infusion Ketorolac Tromethamine 30 mg 11/12/22 14:33 11/12/22 15:35 Ketorolac Tromethamine 30 Mg/Ml Vial IVPUSH 11/12/22 14:34 30 mg ONCE ONE Administration Metoclopramide HCl 10 mg 11/12/22 17:12 11/12/22 17:32 Metoclopramide Hcl 10 Mg/2 Ml Vial IVPUSH 11/12/22 17:13 10 mg ONCE ONE Administration Ondansetron HCl 4 mg 11/12/22 14:33 11/12/22 15:36 Ondansetron Hcl 4 Mg/2 Ml Vial IVPUSH 11/12/22 14:34 4 mg ONCE ONE Administration Medical Decision Making Medical Decision Making [facility] Narrative: 37-year-old male presenting to the emergency department for evaluation of abdominal pain, nausea, and vomiting since yesterday. On arrival, vital signs within normal limits, patient is nontoxic appearing. Abdomen is soft, nondistended, nontender. KUB x-ray was obtained, showing mild constipation. Patient reports that he smokes a lot of marijuana and symptoms are likely due to cyclic vomiting versus gastritis versus gastroenteritis. Plan: Labs, UA, KUB x-ray, 1 L of IV fluids, Zofran, Toradol ordered Differential Diagnosis Differential Diagnoses: The differential diagnosis associated with the presentation includes See above Lab Data [facility] Lab Attestation statement: I reviewed the patient's lab results. No leukocytosis, normocytic anemia noted, around his baseline. Electrolytes within normal limits. 11/12/22 13:21 11/12/22 13:21 Labs: Lab Results 11/12/22 11/12/22 11/12/22 Range/Units 13:21 13:21 16:47 WBC 5.9 (4.8-10.8) X10*3/uL RBC 4.65 (4.60-5.80) X10*6/uL Hgb 12.9 L (14.0-18.0) g/dl Hct 39.0 L (42.0-52.0) % MCV 83.9 (80.0-98.0) fL MCH 27.7 (27.0-33.0) pg MCHC 33.1 (31.0-36.0) g/dl RDW 13.8 (11.0-16.0) % Plt Count 184 (160-400) X10*3/uL MPV 9.7 (9.4-12.4) fL Immature Gran % (Auto) 0.2 (0.0-0.4) % Neut % (Auto) 78.8 H (45-73) % Lymph % (Auto) 12.0 L (20-40) % [place] % (Auto) 8.3 (2-11) % Eos % (Auto) 0.2 (0-4) % Baso % (Auto) 0.5 (0-2) % Lymph # (Auto) 0.7 L (1.2-4.9) X10*3/uL [place] # (Auto) 0.5 (0.1-1.2) X10*3/uL Eos # (Auto) 0.0 (0.0-0.4) X10*3/uL Baso # (Auto) 0.0 (0.0-0.2) X10*3/uL Abs Immat Gran (auto) 0.01 (0.00-0.03) X10*3/uL Absolute Neuts (auto) 4.7 (2.0-8.3) x10*3/uL Absolute Nucleated RBC 0.000 (0.0-0.012) X10*3/uL Nucleated RBC % (auto) 0.0 (0.0-0.2) /100WBC Sodium 139 (135-145) mmol/L Potassium 3.7 (3.3-5.1) mmol/L Chloride 105 (96-108) mmol/L Carbon Dioxide 26 (22-29) mmol/L Anion Gap 12 (12-20) BUN 11 (9-16) mg/dL Creatinine 0.97 (0.5-1.4) mg/dL Estim Creat Clear Calc 134.6 Estimated GFR > 60 Random Glucose 104 (60-115) mg/dL Calcium 9.4 (8.4-10.2) mg/dL Total Bilirubin 0.4 (0.0-1.0) mg/dL AST 21 (5-37) U/L ALT 21 (0-40) U/L Alkaline Phosphatase 55 (39-117) U/L Total Protein 7.5 (6.5-8.0) g/dL Albumin 3.9 (3.5-5.0) g/dL Urine Color Yellow Urine Appearance Clear Urine pH 6.5 (5.0-9.0) Ur Specific [place] >= 1.030 H (1.005-1.025) Urine Protein 30 (1+) H (Neg-Trace) mg/dL Urine Glucose (UA) Negative (Negative) mg/dL Urine Ketones 15 (Negative) mg/dL Urine Blood Negative (Negative) Urine Nitrite Negative (Negative) Ur Leukocyte Esterase Negative (Negative) Urine RBC 3-5 H (0-2) /HPF Urine WBC 0-5 (0-5) /HPF Ur Squamous Epith Cells 0-2 (0-2) /HPF Urine Bacteria None Seen (None Seen) Hyaline Casts 0-2 (0-2) /LPF Radiology Impression Discussion of test interpretation with radiology: I have reviewed the radiologist's reading. Radiologist Impression: EXAMINATION: XR ABDOMEN KUB CLINICAL INDICATION: Abdominal pain and constipation? COMPARISON: None available.? TECHNIQUE: AP view of the abdomen. FINDINGS: Scattered stool seen throughout the colon without distention. The small bowel loops unremarkable. No radiopaque gallstones or radiopaque renal calculi seen. No organomegaly. No gross bony abnormality. XR/XR KUB IMPRESSION: Except for mild constipation the exam is unremarkable. ? Dictated By: Bryson Marina MD Discharge Plan Discharge Clinical Impression: Gastritis, Cyclical vomiting Patient Disposition: Home, Self-Care Instructions: Gastritis (ED) Additional Instructions: Please drink plenty of fluids and get plenty of rest. Your labs are reassuring today. Take prescribed medication as directed. Avoid smoking marijuana as this likely can worsening symptoms. Stick to a bland diet, avoid fatty, spicy, greasy foods in the next couple days. If any new or worsening symptoms occur including but not limited to abdominal pain, chest pain, shortness a breath, worsening vomiting, please return for re-evaluation. Prescriptions: No Action diphenhydramine HCl [Benadryl] 25 mg capsule 25 mg PO TID PRN (Reason: sleep) Qty: 14 0RF ketorolac 10 mg tablet 10 mg PO Q8H PRN (Reason: pain) Qty: 10 0RF Rx Instructions: Given 1st dose in the ED metoclopramide HCl [Reglan] 10 mg tablet 10 mg PO Q6H PRN (Reason: nausea and vomiting) Qty: 15 0RF amoxicillin-pot clavulanate 875-125 mg tablet 1 tab PO BID 10 Days Qty: 20 0RF Colace Clear 50 mg capsule 50 mg PO BID Qty: 14 0RF polyethylene glycol 3350 [Miralax] 17 gram powder in packet 17 g PO BID Qty: 14 0RF ondansetron 4 mg tablet,disintegrating 4 mg PO Q8H Qty: 14 0RF metoclopramide HCl [Reglan] 5 mg tablet 5 mg PO BID PRN (Reason: nausea and vomiting) Qty: 10 0RF sumatriptan succinate 50 mg tablet 50 mg PO Q2-4H PRN (Reason: migraine headache) Qty: 10 0RF Rx Instructions: do not exceed 4 doses per 24 hrs acetaminophen [Tylenol 8 Hour] 650 mg tablet extended release 650 mg PO Q8H PRN (Reason: pain) Qty: 20 0RF ondansetron 4 mg tablet,disintegrating 4 mg PO Q6H PRN (Reason: nausea and vomiting) Qty: 10 0RF metoclopramide HCl [Reglan] 10 mg tablet 10 mg PO Q6H PRN (Reason: nausea and vomiting) Qty: 10 0RF nssuqgyuan-jmksyyckwqbje-eauq [Fioricet] 50-300-40 mg capsule 1 cap PO Q8H PRN (Reason: pain) Qty: 10 0RF Interventions: ED Discharge Assessment Last Done: 11/12/22 20:08 Discharge Date/Time: 11/12/22 20:09
[2022-11-12 13:31] VITALS: BP 117/77; PULSE 73; RESP 16; TEMP 36.9; O2SAT 96
[2022-11-12 13:31] LABS: MANUAL DIFF FLAG NO
[2022-11-12 13:39] LABS: Basophils Percent Auto 0.5 % (0-2); Eosinophils Percent Auto 0.2 % (0-4); Hemoglobin 12.9 g/dl (14.0-18.0); Imm Gran Abs Auto 0.01 X10*3/uL (0.00-0.03); Imm Gran Pct Auto 0.2 % (0.0-0.4); Lymphocytes Absolute Auto 0.7 X10*3/uL (1.2-4.9); Mean Corpuscular HGB Conc 33.1 g/dl (31.0-36.0); Mean Corpuscular Hemoglobin 27.7 pg (27.0-33.0); Mean Corpuscular Volume 83.9 fL (80.0-98.0); Mean Platelet Volume 9.7 fL (9.4-12.4); Monocytes Absolute Auto 0.5 X10*3/uL (0.1-1.2); Monocytes Percent Auto 8.3 % (2-11); Neutrophils Absolute Auto 4.7 x10*3/uL (2.0-8.3); Neutrophils Percent Auto 78.8 % (45-73); Platelet Count 184 X10*3/uL (160-400); Red Blood Count 4.65 X10*6/uL (4.60-5.80); Red Cell Distribution Width 13.8 % (11.0-16.0); White Blood Count 5.9 X10*3/uL (4.8-10.8)
[2022-11-12 13:49] LABS: Alanine Aminotransferase 21 U/L (0-40); Albumin Level 3.9 g/dL (3.5-5.0); Alkaline Phosphatase 55 U/L (39-117); Anion Gap 12 (12-20); Aspartate Amino Transferase 21 U/L (5-37); Bilirubin Total 0.4 mg/dL (0.0-1.0); Blood Urea Nitrogen 11 mg/dL (9-16); Calcium 9.4 mg/dL (8.4-10.2); Carbon Dioxide 26 mmol/L (22-29); Chloride 105 mmol/L (96-108); Creatinine Clr Calc Pharmacy 134.6; Estimated Glomerular Filt Rate > 60; Glucose Random 104 mg/dL (60-115); Potassium 3.7 mmol/L (3.3-5.1); Sodium 139 mmol/L (135-145); Total Protein 7.5 g/dL (6.5-8.0)
[2022-11-12] MEDS: 0.9 % Sodium Chloride 1,000 ML 999 ML IV ×2 (15:32→17:32)
[2022-11-12] MEDS: Ketorolac Tromethamine 30 MG/ML VIAL IVPUSH (15:35)
[2022-11-12] MEDS: ondansetron HCL 4 MG/2 ML VIAL IVPUSH (15:36)
[2022-11-12 16:54] LABS: Appearance Urine Clear; Color Urine Yellow; Glucose Urine UA Negative (Negative); Leukocyte Esterase Urine Negative (Negative); Nitrite Urine Negative (Negative); PH 6.5 (5.0-9.0); Specific Gravity - Urine >= 1.030 (1.005-1.025); UMIC TRIGGER UACC YES; Urine Blood Negative (Negative); Urine Ketones 15 mg/dL (Negative); Urine Protein 30 (1+) mg/dL (Neg-Trace)
[2022-11-12 16:59] LABS: Bacteria Urine None Seen (None Seen); Hyaline Casts Urine 0-2 /LPF (0-2); Squamous Epithelial Cell Urine 0-2 /HPF (0-2); WBC Urine 0-5 /HPF (0-5)
[2022-11-12] MEDS: Metoclopramide HCl 10 MG/2 ML VIAL IVPUSH (17:32)
[2022-11-12] MEDS: diphenhydrAMINE HCL 50 MG/ML VIAL 25 MG IVPUSH (17:32)
[2022-11-12 17:37] VITALS: BP 122/64; PULSE 68; RESP 16; O2SAT 97
--- NOTE | 2022-11-12 19:14 | PC.NURSE ---
Assumed care of pt. Pt stating ability tolerate PO intake with no difficulty. MD made aware.
== END 2022-11-12 20:09 | disposition home or self-care (01) ==
PROVIDERS: Physician Assistant; Emergency Provider Emergency Medicine; PCP Family Medicine
DX: K29.70 Gastritis, unspecified, without bleeding (principal); R11.2 Nausea with vomiting, unspecified; R11.15 Cyclical vomiting syndrome unrelated to migraine; E86.0 Dehydration; K59.00 Constipation, unspecified; Z79.899 Other long term (current) drug therapy
CPT/HCPCS: 36415; 74018; 80053; 81001; 85025; 96361; 96374; 96375; 99284; J1200; J1885; J2405; J2765

== ENCOUNTER 2024-01-01 06:35 | Emergency (ER) | payer OTHER, SELFPAY ==
[2024-01-01 06:48] VITALS: BP 142/82; PULSE 71; RESP 18; TEMP 528.8; TEMP 984; O2SAT 96; BMI 29.7
[2024-01-01] MEDS: Ondansetron ODT 4 MG TAB.RAPDIS TRANSLINGU (07:32)
[2024-01-01 07:46] LABS: MANUAL DIFF FLAG NO
[2024-01-01 07:49] LABS: Basophils Percent Auto 0.4 % (0-2); Eosinophils Percent Auto 0.4 % (0-4); Hematocrit 35.5 % (42.0-52.0); Hemoglobin 12.5 g/dl (14.0-18.0); Imm Gran Abs Auto 0.04 X10*3/uL (0.00-0.03); Imm Gran Pct Auto 0.4 % (0.0-0.4); Lymphocytes Absolute Auto 1.2 X10*3/uL (1.2-4.9); Lymphocytes Percent Auto 10.4 % (20-40); Mean Corpuscular HGB Conc 35.2 g/dl (31.0-36.0); Mean Corpuscular Hemoglobin 29.1 pg (27.0-33.0); Mean Corpuscular Volume 82.6 fL (80.0-98.0); Mean Platelet Volume 9.7 fL (9.4-12.4); Monocytes Absolute Auto 0.6 X10*3/uL (0.1-1.2); Monocytes Percent Auto 5.4 % (2-11); Neutrophils Absolute Auto 9.4 x10*3/uL (2.0-8.3); Platelet Count 220 X10*3/uL (160-400); Red Cell Distribution Width 14.1 % (11.0-16.0); White Blood Count 11.3 X10*3/uL (4.8-10.8)
[2024-01-01 08:03] LABS: Alanine Aminotransferase 24 U/L (0-40); Albumin Level 4.2 g/dL (3.5-5.0); Alkaline Phosphatase 50 U/L (39-117); Anion Gap 14 (12-20); Aspartate Amino Transferase 26 U/L (5-37); Bilirubin Total 0.6 mg/dL (0.0-1.0); Blood Urea Nitrogen 14 mg/dL (9-16); Calcium 9.8 mg/dL (8.4-10.2); Carbon Dioxide 24 mmol/L (22-29); Chloride 106 mmol/L (96-108); Estimated Glomerular Filt Rate > 60; Glucose Random 138 mg/dL (60-115); Potassium 3.6 mmol/L (3.3-5.1); Sodium 140 mmol/L (135-145); Total Protein 7.6 g/dL (6.5-8.0)
[2024-01-01 08:14] LABS: Lipase 12 U/L (8-78)
--- NOTE | 2024-01-01 08:39 | ED.NAVMDI ---
HPI - Nausea/Vomiting/Diarrhea General Chief complaint: Nausea/Vomiting/Diarrhea Stated complaint: n/v Time Seen by Provider: 01/01/24 08:19 Source: patient and old records reviewed Mode of arrival: ambulatory Limitations: no limitations History of Present Illness ED Provider: VAIBHAV BECKWITH Narrative: 38 yo male with PMH of migraines and hx of vomiting in past which he was told was due to THC use he admits to cutting way down to just a blunt a day. He reports vomiting since 3am. No diarrhea. No sick contacts or travel. He notes he feels weak and dehydrated. He usually responds to IVF. MD elicited complaint: nausea and vomiting Pertinent past history: cyclical vomiting Onset (ago): hour(s) (3am) Description of vomiting: watery Associated nausea: Yes Associated abdominal pain: No Location of pain: none Severity: mild Exacerbating factors: eating Relieving factors: none Context: marijuana use Associated symptoms: loss of appetite, malaise, nausea/vomiting and anxiety Related Data Previous Rx's ?Medication ?Instructions ?Recorded diphenhydramine HCl 25 mg capsule 25 mg PO TID PRN sleep #14 caps 08/08/20 (Benadryl) ketorolac 10 mg tablet 10 mg PO Q8H PRN pain #10 tabs 08/08/20 metoclopramide HCl 10 mg tablet 10 mg PO Q6H PRN nausea and 08/08/20 (Reglan) vomiting #15 tabs acetaminophen 650 mg 650 mg PO Q8H PRN pain #20 tabs 01/17/21 tablet,extended release (Tylenol 8 Hour) metoclopramide HCl 5 mg tablet 5 mg PO BID PRN nausea and 01/17/21 (Reglan) vomiting #10 tabs sumatriptan succinate 50 mg tablet 50 mg PO Q2-4H PRN migraine 01/17/21 headache #10 tabs amoxicillin 875 mg-potassium 1 tab PO BID 10 days #20 tabs 01/17/22 clavulanate 125 mg tablet docusate sodium 50 mg capsule 50 mg PO BID Constipation #14 caps 01/17/22 (Colace Clear) ondansetron 4 mg disintegrating 4 mg PO Q8H Nausea and vomiting 01/17/22 tablet #14 tabs polyethylene glycol 3350 17 gram 17 g PO BID Constipation #14 ea 01/17/22 oral powder packet (Miralax) ondansetron 4 mg disintegrating 4 mg PO Q6H PRN nausea and 04/19/22 tablet vomiting #10 tabs rsosaqgypu-benmlcrzisgvs-qolpowca 1 cap PO Q8H PRN pain #10 caps 07/21/22 50 mg-300 mg-40 mg capsule (Fioricet) metoclopramide HCl 10 mg tablet 10 mg PO Q6H PRN nausea and 07/21/22 (Reglan) vomiting #10 tabs ondansetron 4 mg disintegrating 4 mg PO Q8H PRN nausea and 01/01/24 tablet vomiting #20 tabs Allergies Allergy/AdvReac Type Severity Reaction Status Date / Time No Known Allergies Allergy Verified 01/01/24 06:51 [No Known Allergies*] Review of Systems Review of Systems: Constitutional : No Weight loss, No Fever, No Chills ENT/Mouth : No sore throat, No Rhinorrhea Eyes: No Swelling, No Redness Cardiovascular : No Chest Pain, No SOB, NoEdema Respiratory : No Cough, No Sputum, No Wheezing Gastrointestinal : Positive Nausea, Positive Vomiting, no Diarrhea, no abdominal Pain, No Hematochezia, No Melena Genitourinary : No Dysuria, No Urinary Frequency, No Hematuria, No Urgency Musculoskeletal : No joint pain, No Myalgias, No Joint Swelling Skin : No Skin Lesions, No rash Neuro : No Weakness, No Numbness, No Dizziness, No Headache Psych : No Anxiety/Panic, No Depression All other systems reviewed and are negative. Gastrointestinal: Gastrointestinal: Reports nausea PMFSH Past Medical History Attestation statement: The following information was validated with the patient. Source: old records reviewed Medical History Migraines No known health problems Social History Social History Alcohol intake: never Patient Tobacco Use Status: Current everyday Tobacco user Smoked in Last 30 Days: No Use of substances other than those prescribed or required for medical reasons: Yes Substance Use Type: Marijuana Substance Use Frequency: Daily Advance Directives: No Advance Directives Information Provided: No Physical Exam Vital Signs: Vital Signs: Last Vital Signs Temp 984 F H 01/01/24 06:48 Pulse 71 01/01/24 06:48 Resp 18 10/08/24 06:48 BP 142/82 H 10/08/24 06:48 Pulse Ox 96 01/01/24 06:48 O2 Del Method Room Air 01/01/24 06:48 BMI result Body Mass Index 29.7 Appearance: Alert. Oriented X3. No acute distress. Eyes: Pupils equal, round and reactive to light. ENT: Pharynx mildly dry MM Neck: Normal inspection. Neck supple. CVS: Normal heart rate and rhythm. Pulses normal. Respiratory: No respiratory distress. Breath sounds normal. Abdomen: Soft and non-tender. Skin: Skin warm and dry. pale skin color. Extremities: No lower extremity edema. Neuro: Oriented X 3. No motor deficit. No sensory deficit. Medications Administered Discontinued Medications Generic Name Dose Route Start Last Admin Trade Name Freq PRN Reason Stop Dose Admin Diphenhydramine HCl 25 mg 01/01/24 08:34 01/01/24 09:25 Diphenhydramine Hcl 50 Mg/Ml Vial IVPUSH 01/01/24 08:35 25 mg ONCE ONE Administration Sodium Chloride 1,000 mls @ 999 mls/hr 01/01/24 08:34 01/01/24 08:56 Ns IV 01/01/24 09:34 999 mls/hr .Q1H1M ONE Administration Metoclopramide HCl 10 mg 01/01/24 08:34 01/01/24 09:26 Metoclopramide Hcl 10 Mg/2 Ml Vial IVPUSH 01/01/24 08:35 10 mg ONCE ONE Administration Ondansetron HCl 4 mg 01/01/24 07:31 01/01/24 07:32 Ondansetron Odt 4 Mg Tab.Rapdis TRANSLINGU 01/01/24 07:32 4 mg ONCE ONE Administration Medical Decision Making Medical Decision Making [facility] Narrative: 38 yo male with PMH of migraines here with c/o n/v no abdominal pain and no diarrhea. Hx of same in the past. He has had this before. He has gone to [facility] for this in the past. At this time basic labs, IVF x 2L. He has no localized ttp at this time to suggest biliary pathology and no RUQ pain to suggest appendicitis. Differential Diagnosis Differential Diagnoses: The differential diagnosis associated with the presentation includes gastritis, n/v, dehydration Admission/Observation Consideration of admission/observation: Escalation of care including admission/observation considered Lab Data [facility] Lab Attestation statement: I reviewed the patient's lab results. 01/01/24 07:41 01/01/24 07:41 Labs: Lab Results 01/01/24 Range/Units 07:41 WBC 11.3 H (4.8-10.8) X10*3/uL RBC 4.30 L (4.60-5.80) X10*6/uL Hgb 12.5 L (14.0-18.0) g/dl Hct 35.5 L (42.0-52.0) % MCV 82.6 (80.0-98.0) fL MCH 29.1 (27.0-33.0) pg MCHC 35.2 (31.0-36.0) g/dl RDW 14.1 (11.0-16.0) % Plt Count 220 (160-400) X10*3/uL MPV 9.7 (9.4-12.4) fL Immature Gran % (Auto) 0.4 (0.0-0.4) % Neut % (Auto) 83.0 H (45-73) % Lymph % (Auto) 10.4 L (20-40) % [place] % (Auto) 5.4 (2-11) % Eos % (Auto) 0.4 (0-4) % Baso % (Auto) 0.4 (0-2) % Lymph # (Auto) 1.2 (1.2-4.9) X10*3/uL [place] # (Auto) 0.6 (0.1-1.2) X10*3/uL Eos # (Auto) 0.0 (0.0-0.4) X10*3/uL Baso # (Auto) 0.0 (0.0-0.2) X10*3/uL Abs Immat Gran (auto) 0.04 H (0.00-0.03) X10*3/uL Absolute Neuts (auto) 9.4 H (2.0-8.3) x10*3/uL Absolute Nucleated RBC 0.000 (0.0-0.012) X10*3/uL Nucleated RBC % (auto) 0.0 (0.0-0.2) /100WBC Sodium 140 (135-145) mmol/L Potassium 3.6 (3.3-5.1) mmol/L Chloride 106 (96-108) mmol/L Carbon Dioxide 24 (22-29) mmol/L Anion Gap 14 (12-20) BUN 14 (9-16) mg/dL Creatinine 1.12 (0.5-1.4) mg/dL Estim Creat Clear Calc 110.0 Estimated GFR > 60 Random Glucose 138 H (60-115) mg/dL Calcium 9.8 (8.4-10.2) mg/dL Total Bilirubin 0.6 (0.0-1.0) mg/dL AST 26 (5-37) U/L ALT 24 (0-40) U/L Alkaline Phosphatase 50 (39-117) U/L Total Protein 7.6 (6.5-8.0) g/dL Albumin 4.2 (3.5-5.0) g/dL Lipase 12 (8-78) U/L External Record Review External record reviewed: Inpatient record Prescription Management I considered prescription management with: Other Discharge Plan Discharge Clinical Impression: Nausea & vomiting Qualifiers: Vomiting type: unspecified Qualified Code(s): R11.2 - Nausea with vomiting, unspecified Patient Disposition: Home, Self-Care Instructions: Acute Nausea and Vomiting (ED) Additional Instructions: return for any worsening symptoms or concerns stay hydrated rest Prescriptions: New ondansetron 4 mg tablet,disintegrating 4 mg PO Q8H PRN (Reason: nausea and vomiting) Qty: 20 0RF No Action diphenhydramine HCl [Benadryl] 25 mg capsule 25 mg PO TID PRN (Reason: sleep) Qty: 14 0RF ketorolac 10 mg tablet 10 mg PO Q8H PRN (Reason: pain) Qty: 10 0RF Rx Instructions: Given 1st dose in the ED metoclopramide HCl [Reglan] 10 mg tablet 10 mg PO Q6H PRN (Reason: nausea and vomiting) Qty: 15 0RF amoxicillin-pot clavulanate 875-125 mg tablet 1 tab PO BID 10 Days Qty: 20 0RF Colace Clear 50 mg capsule 50 mg PO BID Qty: 14 0RF polyethylene glycol 3350 [Miralax] 17 gram powder in packet 17 g PO BID Qty: 14 0RF ondansetron 4 mg tablet,disintegrating 4 mg PO Q8H Qty: 14 0RF metoclopramide HCl [Reglan] 5 mg tablet 5 mg PO BID PRN (Reason: nausea and vomiting) Qty: 10 0RF sumatriptan succinate 50 mg tablet 50 mg PO Q2-4H PRN (Reason: migraine headache) Qty: 10 0RF Rx Instructions: do not exceed 4 doses per 24 hrs acetaminophen [Tylenol 8 Hour] 650 mg tablet extended release 650 mg PO Q8H PRN (Reason: pain) Qty: 20 0RF ondansetron 4 mg tablet,disintegrating 4 mg PO Q6H PRN (Reason: nausea and vomiting) Qty: 10 0RF metoclopramide HCl [Reglan] 10 mg tablet 10 mg PO Q6H PRN (Reason: nausea and vomiting) Qty: 10 0RF jssojgtfjt-rociksrymmhia-nnua [Fioricet] 50-300-40 mg capsule 1 cap PO Q8H PRN (Reason: pain) Qty: 10 0RF Stand Alone Forms: Work/School Release Print Language: Thai
[2024-01-01] MEDS: 0.9 % Sodium Chloride 1,000 ML 999 ML IV (08:56)
--- NOTE | 2024-01-01 09:05 | PC.NURSE ---
patient presents through external triage with cc of nausea and vomiting since this morning, states he woke up and felt nauseated and then proceeded to vomit while at home, states even after multiple episodes of vomiting, patient still was dry heaving at home. states he also had one loose bowel movement this morning. denies any sick contacts, states he took a covid test at home and it came back negative. patient denies any fevers or chills. states he does not recall eating any bad or different foods. abdomen is soft and nontender to palpation, BS present in all four quadrants, patient was given ODT zofran in triage with some relief. PIV placed in RAC by this RN, IV fluids running wide open per MD. blood work obtained in triage. patient states the last time this happened to him he was told he was dehydrated and felt better after getting a bag of fluids. lights dimmed and pt repositioned for comfort. plan of care remains ongoing
[2024-01-01] MEDS: diphenhydrAMINE HCL 50 MG/ML VIAL 25 MG IVPUSH (09:25)
[2024-01-01] MEDS: Metoclopramide HCl 10 MG/2 ML VIAL IVPUSH (09:26)
--- NOTE | 2024-01-01 09:38 | PC.NURSE ---
patient ambulated with steady gait to bathroom, placed back on stretcher, IV fluids still running, patient medicated per MAY, family at bedside, will reassess
[2024-01-01 10:18] VITALS: BP 107/72; PULSE 50; RESP 14; O2SAT 96
[2024-01-01 10:22] VITALS: BP 110/76; PULSE 57; RESP 14; TEMP 36.6; O2SAT 98
[2024-01-01 10:24] VITALS: BP 110/76; PULSE 57; RESP 14; TEMP 36.6; O2SAT 98
== END 2024-01-01 10:32 | disposition home or self-care (01) ==
PROVIDERS: Emergency Provider Emergency Medicine; PCP Family Medicine
DX: R11.2 Nausea with vomiting, unspecified (principal); F41.1 Generalized anxiety disorder; F12.90 Cannabis use, unspecified, uncomplicated; Z79.899 Other long term (current) drug therapy
CPT/HCPCS: 36415; 80053; 83690; 85025; 96361; 96374; 96375; 99284; J1200; J2765

== ENCOUNTER 2025-02-11 03:33 | Emergency (ER) | payer MEDICAID, SELFPAY ==
[2025-02-11 03:35] VITALS: BP 124/77; PULSE 74; RESP 20; TEMP 37; O2SAT 99; BMI 29.4
[2025-02-11 03:48] VITALS: BP 124/77; PULSE 74; RESP 20; TEMP 37; O2SAT 99
[2025-02-11 04:10] LABS: MANUAL DIFF FLAG NO
[2025-02-11 04:11] LABS: Hematocrit 35.8 % (42.0-52.0); Hemoglobin 11.7 g/dl (14.0-18.0); Imm Gran Abs Auto 0.03 X10*3/uL (0.00-0.03); Imm Gran Pct Auto 0.3 % (0.0-0.4); Lymphocytes Absolute Auto 1.4 X10*3/uL (1.2-4.9); Mean Corpuscular HGB Conc 32.7 g/dl (31.0-36.0); Mean Corpuscular Hemoglobin 28.2 pg (27.0-33.0); Mean Corpuscular Volume 86.3 fL (80.0-98.0); NRBC Abs Auto 0.000 X10*3/uL (0.0-0.012); NRBC Pct Auto 0.0 /100WBC (0.0-0.2); Platelet Count 221 X10*3/uL (160-400); Red Blood Count 4.15 X10*6/uL (4.60-5.80); White Blood Count 9.5 X10*3/uL (4.8-10.8)
[2025-02-11 04:25] LABS: Alanine Aminotransferase 18 U/L (0-40); Albumin Level 4.0 g/dL (3.5-5.0); Alkaline Phosphatase 46 U/L (39-117); Anion Gap 10 (12-20); Aspartate Amino Transferase 26 U/L (5-37); Blood Urea Nitrogen 15 mg/dL (9-16); Calcium 8.8 mg/dL (8.4-10.2); Carbon Dioxide 29 mmol/L (22-29); Chloride 106 mmol/L (96-108); Creatinine Clr Calc Pharmacy 139.7; Estimated Glomerular Filt Rate > 60; Lipase 15 U/L (8-78); Potassium 3.5 mmol/L (3.3-5.1); Sodium 141 mmol/L (135-145); Total Protein 7.1 g/dL (6.5-8.0)
[2025-02-11 04:48] LABS: Resp Syncy Virus RNA Qual PCR NEGATIVE (Negative); SARS COV2 PCR INHOUSE NEGATIVE (Negative)
--- NOTE | 2025-02-11 04:58 | ED_ITS ---
HPI - Nausea/Vomiting/Diarrhea General Chief complaint: Headache Stated complaint: vomiting Time Seen by Provider: 02/11/25 03:41 Source: patient Mode of arrival: ambulatory Limitations: no limitations History of Present Illness ED Provider: Dr. Dominique Mckeon HPI Narrative: 39-year-old male with a history of opioid use disorder on methadone and migraine headaches presenting with sudden-onset headache that woke him from sleep tonight. Describes associated nausea and vomiting. Feels like a migraine. Denies stiff neck, fever, skin rashes, known sick contacts, photophobia. Denies numbness/tingling/weakness of the extremities. No speech deficits. Has been feeling well prior to this. Denies cough or cold-type symptoms. Did not take sumatriptan which use prescribed for migraine headaches. Related Data Previous Rx's ?Medication ?Instructions ?Recorded diphenhydramine HCl 25 mg capsule 25 mg PO TID PRN sle ep #14 caps 08/08/20 (Benadryl) ketorolac 10 mg tablet 10 mg PO Q8H PRN pain #10 ta bs 08/08/20 metoclopramide HCl 10 mg tablet 10 mg PO Q6H PRN nause a and 08/08/20 (Reglan) vomiting #15 tabs acetaminophen 650 mg 650 mg PO Q8H PRN pain #20 t abs 01/17/21 tablet,extended release (Tylenol 8 Hour) metoclopramide HCl 5 mg tablet 5 mg PO BID PRN nausea and 01/17/21 (Reglan) vomiting #10 tabs sumatriptan succinate 50 mg tablet 50 mg PO Q2-4H PRN migraine 01/17/21 headache #10 tabs amoxicillin 875 mg-potassium 1 tab PO BID 10 days #20 tabs 01/17/22 clavulanate 125 mg tablet docusate sodium 50 mg capsule 50 mg PO BID Constipatio n #14 caps 01/17/22 (Colace Clear) ondansetron 4 mg disintegrating 4 mg PO Q8H Nausea and vomiting 01/17/22 tablet #14 tabs polyethylene glycol 3350 17 gram 17 g PO BID Constipat ion #14 ea 01/17/22 oral powder packet (Miralax) ondansetron 4 mg disintegrating 4 mg PO Q6H PRN nausea and 04/19/22 tablet vomiting #10 tabs ygkvsicear-rxnxvzsqkcydq-qiwzgofm 1 cap PO Q8H PRN werner n #10 caps 07/21/22 50 mg-300 mg-40 mg capsule (Fioricet) metoclopramide HCl 10 mg tablet 10 mg PO Q6H PRN nause a and 07/21/22 (Reglan) vomiting #10 tabs ondansetron 4 mg disintegrating 4 mg PO Q8H PRN nausea and 01/01/24 tablet vomiting #20 tabs ondansetron 4 mg disintegrating 4 mg PO Q8H PRN nausea and 02/11/25 tablet vomiting #10 tabs Allergies Allergy/AdvReac Type Severity Reaction Status Date / Time No Known Allergies (No Known Allergy Verified 02/11/25 03:37 Allergies*) Review of Systems 2 Review of Systems: as per HPI, full review of systems performed and negative but for the above mentioned pertinent positives and negatives. [facility] Past Medical History Medical History Migraines No known health problems Social History Social History Alcohol intake: never Patient Tobacco Use Status: Current everyday Tobacco user Smoked in Last 30 Days: No Use of substances other than those prescribed or required for medical reasons: Yes Substance Use Type: Marijuana Advance Directives: No Advance Directives Information Provided: Yes Do you have a plan to hurt others: No Plan Physical Exam 2 Exam: Exam: GENERAL: Ill-Appearing, appears uncomfortable. SKIN: Normal skin color for ethnicity, warm, dry, no rashes noted. HEENT: Normocephalic, atraumatic, no stridor, dry mucous membranes, dentition intact, EOMI, PERRLA. NECK: Soft, supple, full ROM, midline structures nontender, no step-offs, no deformities, no lymphadenopathy. CHEST: Heart regular rhythm, no murmurs, symmetric chest rise and fall. PULMONARY: Clear to auscultation bilaterally, diminished at the bases, no labored breathing, no wheezes/rhales/rhonchi. ABDOMINAL: Soft, nondistended, nontender, positive bowel sounds in all quadrants. : Deferred. MUSCULOSKELETAL: Normal tone, full range of motion, no deformities, no peripheral edema. NEURO: Alert and oriented x3, CN II through XII intact, equal strength and sensation bilateral upper and lower extremities, no focal neurologic deficits. PSYCHIATRIC: Flat affect, fluid speech, good eye contact and appropriate demeanor. Vital Signs: Vital Signs: Last Vital Signs Temp 98.6 F 02/11/25 03:48 Pulse 74 02/11/25 03:48 Resp 20 02/11/25 03:48 BP 124/77 02/11/25 03:48 Pulse Ox 99 02/11/25 03:48 O2 Del Method Room Air 02/11/25 03:48 BMI result Body Mass Index 29.4 Medical Decision Making Medical Decision Making [facility] Narrative: Patient presents with a chief complaint of headache. The differential diagnosis on this patient includes but is not limited to migraine headache, tension headache, cluster headache, subarachnoid hemorrhage, dissection, venous thrombosis, meningitis, sinusitis, bleeding or tumor. Based on history and physical exam, appropriate work-up was initiated. 5:04 AM 02/11/2025 (Dr. Dominique Mckeon, D.Reuben.) Patient reports that he wants to leave. States he needs to go take his methadone dose at this time. His workup today is reassuring. No evidence of elevated white blood cell count or significant electrolyte abnormality. He is afebrile, nontoxic with no signs of meningismus. Stable for discharge. Encouraged him to return to the hospital with any new or worsening symptoms. He left prior to receiving any prescriptions. We will send a script for antiemetics. Differential Diagnosis Differential Diagnoses: The differential diagnosis associated with the presentation includes (As above) Admission/Observation Consideration of admission/observation: Escalation of care including admission/observation considered Lab Data [facility] Lab Attestation statement: I reviewed the patient's lab results. 02/11/25 03:59 02/11/25 03:59 Labs: Lab Results 02/11/25 Range/Units 03:59 WBC 9.5 (4.8-10.8) X10*3/uL RBC 4.15 L (4.60-5.80) X10*6/uL Hgb 11.7 L (14.0-18.0) g/dl Hct 35.8 L (42.0-52.0) % MCV 86.3 (80.0-98.0) fL MCH 28.2 (27.0-33.0) pg MCHC 32.7 (31.0-36.0) g/dl RDW 14.0 (11.0-16.0) % Plt Count 221 (160-400) X10*3/uL MPV 9.6 (9.4-12.4) fL Immature Gran % (Auto) 0.3 (0.0-0.4) % Neut % (Auto) 76.7 H (45-73) % Lymph % (Auto) 15.2 L (20-40) % [place] % (Auto) 5.6 (2-11) % Eos % (Auto) 1.8 (0-4) % Baso % (Auto) 0.4 (0-2) % Lymph # (Auto) 1.4 (1.2-4.9) X10*3/uL [place] # (Auto) 0.5 (0.1-1.2) X10*3/uL Eos # (Auto) 0.2 (0.0-0.4) X10*3/uL Baso # (Auto) 0.0 (0.0-0.2) X10*3/uL Abs Immat Gran (auto) 0.03 (0.00-0.03) X10*3/uL Absolute Neuts (auto) 7.3 (2.0-8.3) x10*3/uL Absolute Nucleated RBC 0.000 (0.0-0.012) X10*3/uL Nucleated RBC % (auto) 0.0 (0.0-0.2) /100WBC Sodium 141 (135-145) mmol/L Potassium 3.5 (3.3-5.1) mmol/L Chloride 106 (96-108) mmol/L Carbon Dioxide 29 (22-29) mmol/L Anion Gap 10 L (12-20) BUN 15 (9-16) mg/dL Creatinine 0.87 (0.5-1.4) mg/dL Estim Creat Clear Calc 139.7 Estimated GFR > 60 Random Glucose 108 (60-115) mg/dL Calcium 8.8 D (8.4-10.2) mg/dL Total Bilirubin 0.3 (0.0-1.0) mg/dL AST 26 (5-37) U/L ALT 18 (0-40) U/L Alkaline Phosphatase 46 (39-117) U/L Total Protein 7.1 (6.5-8.0) g/dL Albumin 4.0 (3.5-5.0) g/dL Lipase 15 (8-78) U/L Influenza Type A (PCR) NEGATIVE (Negative) Influenza Type B (PCR) NEGATIVE (Negative) RSV RNA Qual (PCR) NEGATIVE (Negative) SARS-CoV-2 RNA (RT-PCR) NEGATIVE (Negative) External Record Review External record reviewed: Inpatient record Prescription Management I considered prescription management with: Pain Medication and Other (Antiemetic) Chronic Conditions Patient?s care impacted by: Other (Migraine headaches, opioid use disorder) Social Determinants Patient?s care significantly limited by Social Determinants of Health including: Other Social Determinant of Health Discharge Plan Discharge Clinical Impression: Migraine Patient Disposition: Home, Self-Care Additional Instructions: Return to the emergency room with any new or worsening symptoms including: Worsening headaches associated with fever greater than 100? or stiff neck, numbness/tingling/weakness of your arms or legs, any new symptom that concerns you. Call 911 with any medical emergency. Use zofran as needed for nausea. Force fluids over the next several days. Prescriptions: New ondansetron 4 mg tablet,disintegrating 4 mg PO Q8H PRN (Reason: nausea and vomiting) Qty: 10 0RF No Action diphenhydramine HCl [Benadryl] 25 mg capsule 25 mg PO TID PRN (Reason: sleep) Qty: 14 0RF ketorolac 10 mg tablet 10 mg PO Q8H PRN (Reason: pain) Qty: 10 0RF Rx Instructions: Given 1st dose in the ED metoclopramide HCl [Reglan] 10 mg tablet 10 mg PO Q6H PRN (Reason: nausea and vomiting) Qty: 15 0RF amoxicillin-pot clavulanate 875-125 mg tablet 1 tab PO BID 10 Days Qty: 20 0RF Colace Clear 50 mg capsule 50 mg PO BID Qty: 14 0RF polyethylene glycol 3350 [Miralax] 17 gram powder in packet 17 g PO BID Qty: 14 0RF ondansetron 4 mg tablet,disintegrating 4 mg PO Q8H Qty: 14 0RF metoclopramide HCl [Reglan] 5 mg tablet 5 mg PO BID PRN (Reason: nausea and vomiting) Qty: 10 0RF sumatriptan succinate 50 mg tablet 50 mg PO Q2-4H PRN (Reason: migraine headache) Qty: 10 0RF Rx Instructions: do not exceed 4 doses per 24 hrs acetaminophen [Tylenol 8 Hour] 650 mg tablet extended release 650 mg PO Q8H PRN (Reason: pain) Qty: 20 0RF ondansetron 4 mg tablet,disintegrating 4 mg PO Q6H PRN (Reason: nausea and vomiting) Qty: 10 0RF metoclopramide HCl [Reglan] 10 mg tablet 10 mg PO Q6H PRN (Reason: nausea and vomiting) Qty: 10 0RF sluafsfhfs-zzpazcwovgoov-khbu [Fioricet] 50-300-40 mg capsule 1 cap PO Q8H PRN (Reason: pain) Qty: 10 0RF ondansetron 4 mg tablet,disintegrating 4 mg PO Q8H PRN (Reason: nausea and vomiting) Qty: 20 0RF Print Language: Polish
--- NOTE | 2025-02-11 05:06 | PC.NURSE ---
RN tried to contact this pt via cellphone as he left without his discharge paper work. pts cellphone on file was not active however RN was able to get a hold of pts thea . RN informed her pt will have Rx at [facility] in [facility].
[2025-02-11 05:08] VITALS: BP 124/77; PULSE 74; RESP 20; TEMP 37; O2SAT 99
--- OUTSIDE RECORDS SUMMARY | 2025-02-11 14:32 | XMS_ITS | Encounter Summary ---
Author Organization [employer] Address [address] [place] [address] Care Team Providers Care Cardiology Coordinator Name Role Phone Katherine Martinez MD Primary Care Provider [phone] Encounter Details Date Type Department Care Team (Late st Contact Info) Description 11/18/2022 Orders Only [place] [facility] [address] [place] [address] Katherine Martinez MD [address] [place], [place] Social History Tobacco Use Types Packs/Day Years Used Date Smoking Tobacco: Every Day Cigarettes Smokeless Tobacco: Never Alcohol Use Standard Drinks/Week Comments Not Currently 0 (1 standard drink = 0.6 oz pur e alcohol) Sex and Gender Information Value Date Recorded Sex Assigned at Male 04/27/2022 9:47 AM EST Legal Sex Male 9:34 AM EST Gender Identity Male 04/27/2022 9:47 AM EST Sexual Orientation Choose not to disclose 2022 9:47 AM EST documented as of this encounter Plan of Treatment Not on file documented as of this encounter Visit Diagnoses Not on filedocumented in this encounter Care Teams Cardiology Coordinator Relationship Specialty Start Date End Date Katherine Martinez MD [address] [place] [address] PCP - General Family Medicine 08/23/22 documented as of this encounter
--- OUTSIDE RECORDS SUMMARY | 2025-02-11 14:32 | XMS_ITS | Encounter Summary ---
Author Organization [employer] Address [address] [facility] 7t [place] [address] Care Team Providers Care Medical Scientist Name Role Phone Katherine Martinez MD Primary Care Provider [phone] Encounter Details Date Type Department Care Team (Late st Contact Info) Description 05/25/2022 Orders Only [facility] MEDICAL [address] [place] [address] Provider, MD Xiang Social History Tobacco Use Types Packs/Day Years [...] not to disclose 2022 9:47 AM EST COVID-19 Exposure Response Date Recorded In the last 10 days, have yo u been in contact with someone who was confirmed or suspected to have Coronavirus/COVID-19? No / Unsure 04/28/2022 9:13 AM EST documented as of this encounter Plan of Treatment Not on file documented as of this encounter Procedures Procedure Name Priority Date/Time Associated Diagnosis Comments HIV ANTIBODY/ANTIGEN, 4TH GENERATION Routine 09/08/2022 9:19 AM EDT HEPATITIS C VIRUS (HCV) FIBROSURE Routine 09/08/2022 9:19 AM EDT HEPATITIS C ANTIBODY W/RFLX HCV QUANT PCR AND GENOTYPE Routine 09/08/2022 9:19 AM EDT HCV RNA, QN,REAL TIME PCR W/REFL GENOTYPE, LIPA Routine 09/08/2022 9:19 AM EDT COMPREHENSIVE METABOLIC PANEL Routine 09/08/2022 9:19 AM EDT CBC AND DIFFERENTIAL - WAM AND NON-WAM Routine 05/01/2022 documented in this encounter Results * Hepatitis C Viral RNA, Quantitative, Real-Time PCR with Reflex to??Genotype LiPA (09/08/2022 9:19 AM EDT) Pathologist [facility] HCV Quant Not detected IU/ML [facility] Comment: HCV RNA was not detected in the specimen. Result reported to the [facility]. Testing performed by real time PCR utilizing [email or web address] HCV test. To prevent errors in diagnosis, test results should be interpreted in the context of clinical findings and other laboratory data. Rare polymorphisms exist that could lead to false-negative or false-positive results. If results obtained do not match the clinical findings, additional testing should be considered. HCV QNT LOG Result LOG value not calculated LOGIU/ML [facility] Comment: Testing performed or reported by [facility], a Service of [facility], [facility] [place] [address] Jaquan Vargas MD, Marketing Communications Associate [facility]# [id number] 09/08/2022 9:19 AM EDT 09/08/2022 10:17 AM EDT us Katherine Martinez MD LAB BLOOD ORDERABLES Final Res ult [facility] [address] [place] [address] * (ABNORMAL) Hepatits C Antibody w/Reflex HCV Quant PCR and Genotyping (09/08/2022 9:19 AM EDT) [facility] Hepatitis C Virus Ab, Serum Reactive by screening EIA.(A) (NEG) [facility] Comment: Please see supplemental HCV RNA quantification test results. Result reported to the [facility]. Reference range: Negative Testing performed by [facility], [address], [place] [address]. Testing performed or reported by [facility], a Service of [facility], [address] [place] [address] Jaquan Vargas MD, Marketing Communications Associate [facility]# [id number] 09/08/2022 9:19 AM EDT 09/08/2022 10:17 AM EDT us Katherine Martinez MD LAB BLOOD ORDERABLES Final Res ult [facility] [address] [place] [address] * Hepatitis C Virus (HCV) Fibrosure (09/08/2022 9:19 AM EDT) Fibrosis Score 0.04 [facility] Comment:Reference range: 0.0 0 to 0.21 Fibrosis Stage Comment [facility] Comment: (NOTE) F0 - No fibrosis Necroinflamm Activity Score 0.05 [facility] Comment:Reference range: 0.0 0 to 0.17 Necroinflamm Activity Grade SEE COMMENT [facility] Comment: (NOTE) RESULT:A0-No activity Alpha 2 Macroglobulins QN (FIB) 162 [facility] Comment: Reference range: 110 to 276 Unit: mg/dL Haptoglobin(Fibrosur e) 75 [facility] Comment: Reference range: 17 to 317 Unit: mg/dL Apolipoprotein A-1(Fibrosure) 124 [facility] Comment: Reference range: 101 to 178 Unit: mg/dL Bilirubin, Total(Fibrosure) 0.1 [facility] Comment: Reference range: 0.0 to 1.2 Unit: mg/dL Ggt(Fibrosure) 10 [facility] Comment: Reference range: 0 to 65 Unit: IU/L Alt(Sgpt)P5P(Fibrosu re) 19 [facility] Comment: Reference range: 0 to 55 Unit: IU/L HCV fibrosure Interpretation Comment [facility] Comment: (NOTE) Quantitative results of 6 biochemical tests are analyzed using a computational algorithm to provide a quantitative surrogate marker (0.0-1.0) for liver fibrosis (METAVIR F0-F4) and for necroinflammatory activity (METAVIR A0-A3). Fibrosis Scoring Comment [facility] Comment: (NOTE) < EQ 0.21 EQ Stage F0 - No fibrosis 0.21 - 0.27 EQ Stage F0 - F1 0.27 - 0.31 EQ Stage F1 - Portal fibrosis 0.31 - 0.48 EQ Stage F1 - F2 0.48 - 0.58 EQ Stage F2 - Bridging fibrosis with few septa 0.58 - 0.72 EQ Stage F3 - Bridging fibrosis with many septa 0.72 - 0.74 EQ Stage F3 - F4 >0.74 EQ Stage F4 - Cirrhosis Necroinflamm Activity Scoring Comment [facility] Comment: (NOTE) <0.17 EQ Grade A0 - No Activity 0.17 - 0.29 EQ Grade A0 - A1 0.29 - 0.36 EQ Grade A1 - Minimal activity 0.36 - 0.52 EQ Grade A1 - A2 0.52 - 0.60 EQ Grade A2 - Moderate activity 0.60 - 0.62 EQ Grade A2 - A3 >0.62 EQ Grade A3 - Severe activity Fibrosure Limitations Comment [facility] Comment: (NOTE) The negative predictive value of a Fibrotest score <0.31 (absence of clinically significant fibrosis) was 85% when compared to liver biopsy in 1,270 HCV infected patients with a 38% prevalence of significant liver fibrosis (F2, 3 or 4). The positive predictive value of a Fibro-test score >0.48 (F2, 3, 4) was 61% in that same patient cohort. HCV FibroSURE is not recommended in patients with Gilbert Disease, acute hemolysis (e.g. HCV ribavirin therapy mediated hemolysis) acute hepa-titis of the liver, extra-hepatic cholestasis, transplant patients, and/or renal insufficiency patients. Any of these clinical situations may lead to inaccurate quantitative predictions of fibrosis and necroinflammatory activity in the liver. Fibrosure Comment 1 Comment [facility] Comment: (NOTE) This test was developed and its performance characteristics determined by [facility]. It has not been cleared or approved by the Food and Drug Administration. The FDA has determined that such clearance or approval is not necessary. For questions regarding this report please contact customer service at . Test performed at [address] [address] Testing performed or reported by [facility], a Service of [facility], [address] [place] [address] Jaquan Vargas MD, Marketing Communications Associate [facility]# [id number] 09/08/2022 9:19 AM EDT 09/08/2022 10:17 AM EDT Katherine Martinez MD LAB BLOOD ORDERABLES Final Res ult Performing Organization Address [facility] de Phone Number [facility] [address] [place] [address] * HIV Antibody/Antigen, 4th Generation (09/08/2022 9:19 AM EDT) Result 4th Gen HIV Antibody Antigen NEGATIVE (NEG) [facility] Comment: Negative for antibodies to HIV 1 and HIV 2 and P24 antigen. Reference range: Negative Additional note: Written patient authorization is required for each separate release of this test result. This test was performed on the [employer] immunoassay system. Testing performed or reported by [facility], a Service of [facility], [address] [place] [address] Jaquan Vargas MD, Marketing Communications Associate [facility]# [id number] 09/08/2022 9:19 AM EDT 09/08/2022 10:18 AM EDT Katherine Martinez MD LAB BLOOD ORDERABLES Final Res ult Performing Organization Address [facility] de Phone Number [facility] [address] [place] [address] * Comprehensive Metabolic Panel (09/08/2022 9:19 AM EDT) Glucose 96 (70-99) MG/DL [facility] BUN 11 (6-20) MG/DL [facility] Creatinine, Serum 1.0 (0.7-1.2) MG/DL [facility] Sodium 141 (133-145) MMOL/L [facility] Potassium 4.6 (3.6-5.2) MMOL/L [facility] Chloride 106 (98-107) MMOL/L [facility] Bicarbonate 27 (22-29) MMOL/L [facility] Anion Gap 8 (4-17) [facility] Albumin 4.4 (3.4-4.8) GM/DL [facility] Calcium 9.8 (8.6-10.5) MG/DL [facility] Bilirubin, Total 0.3 (0-1.2) MG/DL [facility] Total Protein 7.1 (6.2-8.2) GM/DL [facility] Albumin/Globulin Ratio 1.6 [facility] AST 20 (0-40) U/L [facility] Alkaline Phosphatase 53 (40-129) U/L [facility] ALT (SGPT) 18 (0-41) U/L [facility] eGFR Creatinine 100 ML/MIN/1.7 3 M2 [facility] Comment: Creatinine based estimated glomerular filtration (eGFR) in adults is calculated using the National Kidney Foundation recommended 2020 CKD-EPI equation. Estimates GFR from serum creatinine, age and sex. Testing performed or reported by [facility], a Service of [facility], [address] [place] [id number] Jaquan Vargas MD, Marketing Communications Associate [facility]# [id number] 09/08/2022 9:19 AM EDT 09/08/2022 10:18 AM EDT Katherine Martinez MD LAB BLOOD ORDERABLES Final Res ult [address] [address] * CBC and differential (05/01/2022) Blood Venous blood specimen / Unknown Historical Provider LAB BLOOD ORDERABLES Jamila l Result documented in this encounter Visit Diagnoses Not on filedocumented in this encounter Care Teams Medical Scientist Relationship Specialty Start Date End Date Katherine Martinez MD [address] [place] [address] PCP - General Family Medicine 08/23/22 documented as of this encounter
--- OUTSIDE RECORDS SUMMARY | 2025-02-11 14:32 | XMS_ITS | Encounter Summary ---
Author Organization [employer] Address [address] [facility] 7 [place] [address] Care Team Providers Care Band Teacher Name Role Phone Katherine Martinez MD Primary Care Provider [phone] Encounter Details Date Type Department Care Team (Late st Contact Info) Description 02/11/2025 Telephone [employer] [facility] [address] [place], [place] [phone] Katherine Martinez MD [address] [place] [address] Social History Tobacco Use Types Packs/Day Years [...] AM EST documented as of this encounter Miscellaneous Notes * Telephone Encounter - Melanie Miller LPN - 02/11/2025 12:19 PM EST Patient discharged today. Nursing to follow up tomorrow. documented in this encounter Plan of Treatment Not on file documented as of this encounter Visit Diagnoses Not on filedocumented in this encounter Care Teams Band Teacher Relationship Specialty Start Date End Date Katherine Martinez MD [address] [place] [address] PCP - General Family Medicine 08/23/22 documented as of this encounter
--- OUTSIDE RECORDS SUMMARY | 2025-02-11 14:33 | XMS_ITS | Clinical Summary ---
Author Organization [email or web address] Address [address] [facility] 7t [place] [address] Care Team Providers Care Induction Heat Treater Name Role Phone Katherine Martinez MD Primary Care Provider [phone] Allergies No known active allergies Medications methadone (Dolophine) 0.1 mg/mL solution Take 115 mg by mouth in the morning. 8 Active nicotine polacrilex (Nicorette) 4 MG gum Chew 1 each (4 mg) if needed for smoking cessation. - cinnamon flavor. Max 12 pieces per day. 100 each 3 Active ramelteon (Rozerem) 8 MG tabletIndicatio ns:Primary insomnia Take 1 tablet (8 mg) by mouth if needed at bedtime for sleep. 30 tablet 1 4 Active Additional Information Patient not taking.Reported on 12/28/2023 Cariprazine HCl (Vraylar) 1.5 MG capsuleIndicati ons:Bipolar 1 disorder, depressed (CMS/HCC) (HCC) Take 1 capsule Sunday, Sunday, and Sunday 12 capsule 11 4 Active sildenafil (Viagra) 50 MG tabletIndicatio ns:Erectile disorder Take 1 tablet (50 mg) by mouth if needed each day for erectile dysfunction. 30 tablet 3 4 Active Active Problems Problem Noted Date Diagnosed Date Anemia 09/27/2022 Marijuana use, continuous 09/27/2022 Mixed anxiety depressive disorder 04/28/2022 Encounters Date Type Department Care Team Description 02/11/2025 Telephone [employer] [facility] [address] [place] [address] Katherine Martinez MD from Last 3 Months Immunizations Immunization Administration Dates Next Due Influenza injectable quadriv alent IIV4 with preservative 04/27/2023 Social History Tobacco Use Types Packs/Day Years Used Date Smoking Tobacco: Every Day Cigarettes Smokeless Tobacco: Never Tobacco Cessation:Ready to Q uit: Not Asked; Counseling Given: Not Answered Alcohol Use Standard Drinks/Week Comments Not Currently 0 (1 standard drink = 0.6 oz pur e alcohol) Sex and Gender Information Value Date Recorded Sex Assigned at Male 04/27/2022 9:47 AM EST Legal Sex Male 9:34 AM EST Gender Identity Male 04/27/2022 9:47 AM EST Sexual Orientation Choose not to disclose 2022 9:47 AM EST Last Filed Vital Signs Vital Sign Reading Time Taken Comments Blood Pressure 119/88 12/28/2023 11:26 AM EDT Pulse 67 12/28/2023 11:26 AM EDT Temperature 36.4 C (97.5 F) 12/28/2023 11:26 AM EDT Respiratory Rate 18 12/28/2023 11:26 AM EDT Oxygen Saturation 98% 12/28/2023 11:26 AM EDT Inhaled Oxygen Concentration - - Weight 103 kg (227 lb) 12/28/2023 11:26 AM EDT Height 185.4 cm (6' 1 ) 04/27/2023 9:33 AM EST Body Mass Index 29.95 04/27/2023 9:33 AM EST Plan of Treatment Health Maintenance Due Date Last Done Comments Depression Screening 1983 SDOH Screening 1983 Disability Screening 1983 Alcohol/Substance Use Screening 1995 Family Planning (PISQ) 09/18/1998 HPV Vaccines (1 - Male 3-dos e series) 09/18/1998 DTaP/Tdap/Td Vaccines (1 - Tdap) 09/18/2002 Hepatitis B Vaccines (1 of 3 - 19+ 3-dose series) 09/18/2002 Pneumococcal Vaccine: Pediatrics (0 to 5 Years) and At-Risk Patients (6 to 49) Years (1 of 2 - PCV) 09/18/2002 COVID-19 Vaccine (1 - 2024-2 6 season) 2024 Influenza Vaccine (#1) 2024 04/27/2023 Tobacco Screening 12/27/2024 12/28/2023 Lipid Panel 01/04/2029 01/05/2024 Zoster Vaccines (1 of 2) 09/18/2033 RSV Patients and Patients Aged 60 years or older (1 - 1-dose 75+ series) 09/18/2058 HIV Screening Completed 09/08/2022, 09/08/2022 Hepatitis C Screening Completed 09/08/2022 , 09/08/2022 HIB Vaccines Aged Out No longer eligi ble based on patient's age to complete this topic Hepatitis A Vaccines Aged Out No long er eligible based on patient's age to complete this topic IPV Vaccines Aged Out No longer eligi ble based on patient's age to complete this topic Meningococcal B Vaccine Aged Out No l onger eligible based on patient's age to complete this topic Meningococcal Vaccine Aged Out No hiwot isac eligible based on patient's age to complete this topic RSV under 20 months Aged Out No longe r eligible based on patient's age to complete this topic Rotavirus Vaccines Aged Out No longer eligible based on patient's age to complete this topic Procedures Procedure Name Priority Date/Time Associated Diagnosis Comments LIPID PANEL, STANDARD Routine 01/05/2024 10:39 AM EDT Screening for hyperlipidemia HEPATITIS C VIRUS (HCV) FIBROSURE Routine 09/08/2022 9:19 AM EDT HIV ANTIBODY/ANTIGEN, 4TH GENERATION Routine 09/08/2022 9:19 AM EDT from Last 3 Months or Most Recently Relevant to Health Maintenance Results * (ABNORMAL) Lipid Panel, Standard 32682 (01/05/2024 10:39 AM EDT) [facility] Cholesterol, Total 188 100 - 199 mg/dL [facility] Triglycerides 75 0 - 149 mg/dL [facility] HDL Cholesterol 54 >39 mg/dL [facility] VLDL Cholesterol Lio 14 5 - 40 mg/dL [facility] LDL Chol Calc ([facility]) 120(H) 0 - 99 mg/dL [facility] Blood Venous blood specimen / Unknown 01/05/2024 10:39 AM EDT 01/05/2024 Narrative [facility] - 01/06/2024 8:05 AM EDT Performed at: [facility] [address] [id number] Wood Craftsman: Aminta Segura MD, Phone: [phone] us Katherine Martinez MD LAB BLOOD ORDERABLES Final Res ult Performing Organization Address [facility] Co de Phone Number [facility] * HIV Antibody/Antigen, 4th Generation (09/08/2022 9:19 AM EDT) Result 4th Gen HIV Antibody Antigen NEGATIVE (NEG) [facility] Comment: Negative for antibodies to HIV 1 and HIV 2 and P24 antigen. Reference range: Negative Additional note: Written patient authorization is required for each separate release of this test result. This test was performed on the [employer] immunoassay system. Testing performed or reported by [facility], a Service of [facility], [address] [place] [id number] Jaquan Vargas MD, Substitute Nurse [facility]# [id number] 09/08/2022 9:19 AM EDT 09/08/2022 10:18 AM EDT Katherine Martinez MD LAB BLOOD ORDERABLES Final Res ult Performing Organization Address [facility] Co de Phone Number [facility] [address] [place] [address] * Hepatitis C Virus (HCV) Fibrosure (09/08/2022 9:19 AM EDT) Fibrosis Score 0.04 [facility] Comment:Reference range: 0.0 0 to 0.21 Fibrosis Stage Comment [facility] Comment: (NOTE) F0 - No fibrosis Necroinflamm Activity Score 0.05 [facility] Comment:Reference range: 0.0 0 to 0.17 Necroinflamm Activity Grade SEE COMMENT [facility] Comment: (NOTE) RESULT:A0-No activity Alpha 2 Macroglobulins QN (FIB) 162 [facility] Comment: Reference range: 110 to 276 Unit: mg/dL Haptoglobin(Fibrosur e) 75 [facility] Comment: Reference range: 17 to 317 Unit: mg/dL Apolipoprotein A-1(Fibrosure) 124 [facility] Comment: Reference range: 101 to 178 Unit: mg/dL Bilirubin, Total(Fibrosure) 0.1 [facility] Comment: Reference range: 0.0 to 1.2 Unit: mg/dL Ggt(Fibrosure) 10 [facility] Comment: Reference range: 0 to 65 Unit: IU/L Alt(Sgpt)P5P(Fibrosu re) 19 [facility] Comment: Reference range: 0 to 55 Unit: IU/L HCV fibrosure Interpretation Comment [facility] Comment: (NOTE) Quantitative results of 6 biochemical tests are analyzed using a computational algorithm to provide a quantitative surrogate marker (0.0-1.0) for liver fibrosis (METAVIR F0-F4) and for necroinflammatory activity (METAVIR A0-A3). Fibrosis Scoring Comment [facility] Comment: (NOTE) < EQ 0.21 EQ Stage [...] F4 - Cirrhosis Necroinflamm Activity Scoring Comment [facility] Comment: (NOTE) <0.17 EQ Grade A0 - No Activity 0.17 - 0.29 EQ Grade A0 - A1 0.29 - 0.36 EQ Grade A1 - Minimal activity 0.36 - 0.52 EQ Grade A1 - A2 0.52 - 0.60 EQ Grade A2 - Moderate activity 0.60 - 0.62 EQ Grade A2 - A3 >0.62 EQ Grade A3 - Severe activity Fibrosure Limitations Comment [facility] Comment: (NOTE) The negative predictive value of [...] in the liver. Fibrosure Comment 1 Comment [facility] Comment: (NOTE) This test was developed and its performance characteristics determined by [facility]. It has not been cleared or approved by the Food and Drug Administration. The FDA has determined that such clearance or approval is not necessary. For questions regarding this report please contact customer service at . Test performed at [address] [address] Testing performed or reported by [facility], a Service of [facility], [address] [place] [address] [place] [address] Jaquan Vargas MD, Substitute Nurse [facility]# [id number] 09/08/2022 9:19 AM EDT 09/08/2022 10:17 AM EDT us Katherine Martinez MD LAB BLOOD ORDERABLES Final Res ult [facility] [address] [place] [address] from Last 3 Months or Most Recently Relevant to Health Maintenance Insurance [facility] Care Teams Induction Heat Treater Relationship Specialty Start Date End Date Katherine Martinez MD [address] [facility] [place] [address] PCP - General Family Medicine 08/23/22
== END 2025-02-11 05:09 | disposition home or self-care (01) ==
PROVIDERS: Emergency Provider Emergency Medicine; PCP Family Medicine
DX: G43.909 Migraine, unspecified, not intractable, without status migrainosus (principal); R11.2 Nausea with vomiting, unspecified; F17.200 Nicotine dependence, unspecified, uncomplicated; Z71.6 Tobacco abuse counseling; Z03.818 Encounter for observation for suspected exposure to other biological agents ruled out
CPT/HCPCS: 80053; 83690; 85025; 87637; 99283; 99284

== ENCOUNTER 2025-03-19 04:23 | Emergency (ER) | payer SELFPAY ==
[2025-03-19 04:25] VITALS: BP 129/84; PULSE 70; RESP 20; TEMP 36.5; O2SAT 100; BMI 30.2
[2025-03-19 04:49] LABS: COVID-19 Test Negative (Negative); IDNOW Serial# 58CA691E
[2025-03-19 04:51] LABS: Influenza B2 Negative (Negative)
--- OUTSIDE RECORDS SUMMARY | 2025-03-19 05:21 | XMS_ITS | Encounter Summary ---
Author Organization [employer] Address [address] [facility] 7t [place] [address] Care Team Providers Care Inspector Firearms Name Role Phone Katherine Martinez MD Primary Care Provider [phone] Encounter Details Date Type Department Care Team (Late st Contact Info) Description 11/18/2022 Orders Only [place] [facility] MED[facility] [address] [place] [address] Katherine Martinez MD [address] [place], [place] Social History Tobacco Use Types Packs/Day [...] on filedocumented in this encounter Care Teams Inspector Firearms Relationship Specialty Start Date End Date Katherine Martinez MD [address] [place] [address] PCP - General Family Medicine 08/23/22 documented as of this encounter
--- OUTSIDE RECORDS SUMMARY | 2025-03-19 05:21 | XMS_ITS | Encounter Summary ---
Author Organization [employer] Address [address] [facility] [address] [place] [address] Care Team Providers Care Commercial Photographer Name Role Phone Katherine Martinez MD Primary Care Provider [phone] Encounter Details Date Type Department Care Team (Late st Contact Info) Description 05/25/[address] [facility] MEDICAL [address] [place] [address] Provider, MD Xiang Social History Tobacco Use [...] to??Genotype LiPA (09/08/2022 9:19 AM EDT) Pathologist [facility] [place] HCV Quant Not detected IU/ML [facility] Comment: HCV RNA was not detected in the specimen. Result reported to the [facility]. Testing performed by real time PCR utilizing JAMES NorthPage[employer] HCV test. To prevent errors in diagnosis, test results should be interpreted in the context of clinical findings and other laboratory data. Rare polymorphisms exist that could lead to false-negative or false-positive results. If results obtained do not match the clinical findings, additional testing should be considered. HCV QNT LOG Result LOG value not calculated LOGIU/ML [facility] Comment: Testing performed or reported by [facility], a Service of [facility], [facility] [place] [address] Jaquan Vargas MD, Dealer Card Room [facility]# [id number] 09/08/2022 9:19 AM EDT 09/08/2022 10:17 AM EDT us Katherine Martinez MD LAB BLOOD ORDERABLES Final Res ult [facility] [address] [place] [address] * (ABNORMAL) Hepatits C Antibody w/Reflex HCV Quant PCR and Genotyping (09/08/2022 9:19 AM EDT) [facility] Hepatitis C Virus Ab, Serum Reactive by screening EIA.(A) (NEG) [facility] Comment: Please see supplemental HCV RNA quantification test results. Result reported to the [facility]. Reference range: Negative Testing performed by [facility], [address], [place] [address]. Testing performed or reported by [facility], a Service of [facility], [address] [place] [address] Jaquan Vargas MD, Dealer Card Room [facility]# [id number] 09/08/2022 9:19 AM EDT 09/08/2022 10:17 AM EDT us Katherine Martinez MD LAB BLOOD ORDERABLES Final Res ult [facility] [address] [place] [address] * Hepatitis C Virus (HCV) Fibrosure (09/08/2022 9:19 AM EDT) Fibrosis Score 0.04 [facility] Comment:Reference range: 0.0 0 to 0.21 Fibrosis Stage Comment [facility] Comment: (NOTE) F0 - No fibrosis Necroinflamm Activity Score 0.05 [facility] Comment:Reference range: 0.0 0 to 0.17 Necroinflamm Activity Grade SEE COMMENT [facility] Comment: (NOTE) RESULT:A0-No activity Alpha 2 Macroglobulins QN (FIB) 162 [facility] Comment: Reference range: 110 to 276 Unit: mg/dL Haptoglobin(Fibrosur e) 75 [facility] Comment: Reference range: 17 to 317 Unit: mg/dL Apolipoprotein A-1(Fibrosure) 124 [facility] Comment: Reference range: 101 to 178 Unit: mg/dL Bilirubin, Total(Fibrosure) 0.1 [facility] Comment: Reference range: 0.0 to 1.2 Unit: mg/dL Ggt(Fibrosure) 10 [facility] Comment: Reference range: 0 to 65 Unit: IU/L Alt(Sgpt)P5P(Fibrosu re) 19 [facility] Comment: Reference range: 0 to 55 Unit: IU/L HCV fibrosure Interpretation Comment [facility] Comment: (NOTE) Quantitative results of 6 biochemical tests are analyzed using a computational algorithm to provide a quantitative surrogate marker (0.0-1.0) for liver fibrosis (METAVIR F0-F4) and for necroinflammatory activity (METAVIR A0-A3). Fibrosis Scoring Comment [facility] Comment: (NOTE) < EQ 0.21 [...] F4 - Cirrhosis Necroinflamm Activity Scoring Comment [facility] Comment: (NOTE) <0.17 EQ Grade A0 - No Activity 0.17 - 0.29 EQ Grade A0 - A1 0.29 - 0.36 EQ Grade A1 - Minimal activity 0.36 - 0.52 EQ Grade A1 - A2 0.52 - 0.60 EQ Grade A2 - Moderate activity 0.60 - 0.62 EQ Grade A2 - A3 >0.62 EQ Grade A3 - Severe activity Fibrosure Limitations Comment [facility] Comment: (NOTE) The negative predictive [...] in the liver. Fibrosure Comment 1 Comment [facility] Comment: (NOTE) This test was developed and its performance characteristics determined by [employer]. It has not been cleared or approved by the Food and Drug Administration. The FDA has determined that such clearance or approval is not necessary. For questions regarding this report please contact customer service at . Test performed at [address] [address] Testing performed or reported by [facility], a Service of [facility], [address] [place] [address] Jaquan Vargas MD, Dealer Card Room [facility]# [id number] 09/08/2022 9:19 AM EDT 09/08/2022 10:17 AM EDT Katherine Martinez MD LAB BLOOD ORDERABLES Final Res ult Performing Organization Address [facility] de Phone Number [facility] [address] [place] [address] * HIV Antibody/Antigen, 4th Generation (09/08/2022 9:19 AM EDT) Result 4th Gen HIV Antibody Antigen NEGATIVE (NEG) [facility] Comment: Negative for antibodies to HIV 1 and HIV 2 and P24 antigen. Reference range: Negative Additional note: Written patient authorization is required for each separate release of this test result. This test was performed on the [employer] immunoassay system. Testing performed or reported by [facility], a Service of [facility], [address] [place] [address] Jaquan Vargas MD, Dealer Card Room [facility]# [id number] 09/08/2022 9:19 AM EDT 09/08/2022 10:18 AM EDT Katherine Martinez MD LAB BLOOD ORDERABLES Final Res ult Performing Organization Address [facility] de Phone Number [facility] [address] [place] [address] * Comprehensive Metabolic Panel (09/08/2022 9:19 AM EDT) Glucose 96 (70-99) MG/DL [facility] BUN 11 (6-20) MG/DL [facility] Creatinine, Serum 1.0 (0.7-1.2) MG/DL [facility] Sodium 141 (133-145) MMOL/L [facility] Potassium 4.6 (3.6-5.2) MMOL/L [facility] Chloride 106 (98-107) MMOL/L [facility] Bicarbonate 27 (22-29) MMOL/L [facility] Anion Gap 8 (4-17) [facility] Albumin 4.4 (3.4-4.8) GM/DL [facility] Calcium 9.8 (8.6-10.5) MG/DL [facility] Bilirubin, Total 0.3 (0-1.2) MG/DL [facility] Total Protein 7.1 (6.2-8.2) GM/DL [facility] Albumin/Globulin Ratio 1.6 [facility] AST 20 (0-40) U/L [facility] Alkaline Phosphatase 53 (40-129) U/L [facility] ALT (SGPT) 18 (0-41) U/L [facility] eGFR Creatinine 100 ML/MIN/1.7 3 M2 [facility] Comment: Creatinine based estimated glomerular filtration (eGFR) in adults is calculated using the National Kidney Foundation recommended 2020 CKD-EPI equation. Estimates GFR from serum creatinine, age and sex. Testing performed or reported by [facility], a Service of [facility], [address] [place] [id number] Jaquan Vargas MD, Dealer Card Room [facility]# [id number] 09/08/2022 9:19 AM EDT 09/08/2022 10:18 AM EDT Katherine Martinez MD LAB BLOOD ORDERABLES Final Res ult [address] [address] * CBC and differential (05/01/2022) Blood Venous blood specimen / Unknown Historical Provider LAB BLOOD ORDERABLES Jamila l Result documented in this encounter Visit Diagnoses Not on filedocumented in this encounter Care Teams Commercial Photographer Relationship Specialty Start Date End Date Katherine Martinez MD [address] [place] [address] PCP - General Family Medicine 08/23/22 documented as of this encounter
--- OUTSIDE RECORDS SUMMARY | 2025-03-19 05:21 | XMS_ITS | Clinical Summary ---
Author Organization [employer] Address [address] [facility] [address] [place] [address] Care Team Providers Care Resource Forester Name Role Phone Katherine Martinez MD Primary Care Provider [phone] Allergies No known active allergies Medications methadone [...] Type Department Care Team Description 02/11/2025 Telephone [place] [employer] [address] [place] [address] Katherine Martinez MD ER Follow-up from Last 3 Months Immunizations Immunization Administration [...] Maintenance Results * (ABNORMAL) Lipid Panel, Standard 58559 (01/05/2024 10:39 AM EDT) [facility] Cholesterol, Total 188 100 - 199 mg/dL [facility] Triglycerides 75 0 - 149 mg/dL [facility] HDL Cholesterol 54 >39 mg/dL [facility] VLDL Cholesterol Lio 14 5 - 40 mg/dL [facility] 1 LDL Chol Calc ([facility]) 120(H) 0 - 99 mg/dL [facility] 1 Blood Venous blood specimen / Unknown 01/05/2024 10:39 AM EDT 01/05/2024 Narrative [facility] - 01/06/2024 8:05 AM EDT Performed at: 01 - [facility] [address] [id number] Deputy Fire Marshal: Aminta Segura MD, Phone: [phone] us Katherine Martinez MD LAB BLOOD ORDERABLES Final Res ult Performing Organization Address City/[facility] Co de Phone Number [facility] * HIV Antibody/Antigen, 4th Generation (09/08/2022 9:19 AM EDT) Result 4th Gen HIV Antibody Antigen NEGATIVE (NEG) [facility] Comment: Negative for antibodies to HIV 1 and HIV 2 and P24 antigen. Reference range: Negative Additional note: Written patient authorization is required for each separate release of this test result. This test was performed on the [employer] immunoassay system. Testing performed or reported by [facility], a Service of [facility], [address] [place] [id number] Jaquan Vargas MD, Assistant Track Coach [facility]# [id number] 09/08/2022 9:19 AM EDT 09/08/2022 10:18 AM EDT Katherine Martinez MD LAB BLOOD ORDERABLES Final Res ult Performing Organization Address City/[facility] Co de Phone Number [facility] [address] [place] [address] * Hepatitis C Virus (HCV) Fibrosure (09/08/2022 9:19 AM EDT) Fibrosis Score 0.04 [facility] Comment:Reference range: 0.0 0 to 0.21 Fibrosis Stage Comment [facility] Comment: (NOTE) F0 - No fibrosis Necroinflamm Activity Score 0.05 [facility] Comment:Reference range: 0.0 0 to 0.17 Necroinflamm Activity Grade SEE COMMENT [facility] Comment: (NOTE) RESULT:A0-No activity Alpha 2 Macroglobulins QN (FIB) 162 [facility] Comment: Reference range: 110 to 276 Unit: mg/dL Haptoglobin(Fibrosur e) 75 [facility] Comment: Reference range: 17 to 317 Unit: mg/dL Apolipoprotein A-1(Fibrosure) 124 [facility] Comment: Reference range: 101 to 178 Unit: mg/dL Bilirubin, Total(Fibrosure) 0.1 [facility] Comment: Reference range: 0.0 to 1.2 Unit: mg/dL Ggt(Fibrosure) 10 [facility] Comment: Reference range: 0 to 65 Unit: IU/L Alt(Sgpt)P5P(Fibrosu re) 19 [facility] Comment: Reference range: 0 to 55 Unit: IU/L HCV fibrosure Interpretation Comment [facility] Comment: (NOTE) Quantitative results of 6 biochemical tests are analyzed using a computational algorithm to provide a quantitative surrogate marker (0.0-1.0) for liver fibrosis (METAVIR F0-F4) and for necroinflammatory activity (METAVIR A0-A3). Fibrosis Scoring Comment [facility] Comment: (NOTE) < EQ 0.21 EQ [...] F4 - Cirrhosis Necroinflamm Activity Scoring Comment [facility] Comment: (NOTE) <0.17 EQ Grade A0 - No Activity 0.17 - 0.29 EQ Grade A0 - A1 0.29 - 0.36 EQ Grade A1 - Minimal activity 0.36 - 0.52 EQ Grade A1 - A2 0.52 - 0.60 EQ Grade A2 - Moderate activity 0.60 - 0.62 EQ Grade A2 - A3 >0.62 EQ Grade A3 - Severe activity Fibrosure Limitations Comment [facility] Comment: (NOTE) The negative predictive value of [...] in the liver. Fibrosure Comment 1 Comment [facility] Comment: (NOTE) This test was developed and its performance characteristics determined by [facility]. It has not been cleared or approved by the Food and Drug Administration. The FDA has determined that such clearance or approval is not necessary. For questions regarding this report please contact customer service at . Test performed at [address] [address] Testing performed or reported by [facility], a Service of [facility], [facility] [place] [address] Jaquan Vargas MD, Assistant Track Coach [facility]# [id number] 09/08/2022 9:19 AM EDT 09/08/2022 10:17 AM EDT us Katherine Martinez MD LAB BLOOD ORDERABLES Final Res ult [facility] [address] [place] [address] from Last 3 Months or Most Recently Relevant to Health Maintenance Insurance [facility] Care Teams Resource Forester Relationship Specialty Start Date End Date Katherine Martinez MD [address] [facility] [address] [place] [address] PCP - General Family Medicine 08/23/22
--- NOTE | 2025-03-19 05:32 | ED_ITS ---
HPI - General Adult General Chief complaint: Upper Respiratory Symptoms Stated complaint: dehydrated Time Seen by Provider: 03/19/25 05:31 Source: patient Limitations: no limitations History of Present Illness ED Provider: Angie Rogers PA-C HPI narrative: 39-year-old male with a history of migraines presents with viral syndrome. Patient states he woke this morning with generalized myalgia, malaise, headache, chills, weakness nausea vomiting. Unknown if he has sick contacts with similar symptoms. No fever. Related Data Previous Rx's ?Medication ?Instructions ?Recorded diphenhydramine HCl 25 mg capsule 25 mg PO TID PRN sle ep #14 caps 08/08/20 (Benadryl) ketorolac 10 mg tablet 10 mg PO Q8H PRN pain #10 ta bs 08/08/20 metoclopramide HCl 10 mg tablet 10 mg PO Q6H PRN nause a and 08/08/20 (Reglan) vomiting #15 tabs acetaminophen 650 mg 650 mg PO Q8H PRN pain #20 t abs 01/17/21 tablet,extended release (Tylenol 8 Hour) metoclopramide HCl 5 mg tablet 5 mg PO BID PRN nausea and 01/17/21 (Reglan) vomiting #10 tabs sumatriptan succinate 50 mg tablet 50 mg PO Q2-4H PRN migraine 01/17/21 headache #10 tabs amoxicillin 875 mg-potassium 1 tab PO BID 10 days #20 tabs 01/17/22 clavulanate 125 mg tablet docusate sodium 50 mg capsule 50 mg PO BID Constipatio n #14 caps 01/17/22 (Colace Clear) ondansetron 4 mg disintegrating 4 mg PO Q8H Nausea and vomiting 01/17/22 tablet #14 tabs polyethylene glycol 3350 17 gram 17 g PO BID Constipat ion #14 ea 01/17/22 oral powder packet (Miralax) ondansetron 4 mg disintegrating 4 mg PO Q6H PRN nausea and 04/19/22 tablet vomiting #10 tabs drzsppgolv-dllydkihyqkxh-fcsmujzy 1 cap PO Q8H PRN werner n #10 caps 07/21/22 50 mg-300 mg-40 mg capsule (Fioricet) metoclopramide HCl 10 mg tablet 10 mg PO Q6H PRN nause a and 07/21/22 (Reglan) vomiting #10 tabs ondansetron 4 mg disintegrating 4 mg PO Q8H PRN nausea and 01/01/24 tablet vomiting #20 tabs ondansetron 4 mg disintegrating 4 mg PO Q8H PRN nausea and 02/11/25 tablet vomiting #10 tabs ondansetron 4 mg disintegrating 4 mg PO Q8H PRN nausea and 03/19/25 tablet vomiting #15 tabs Allergies Allergy/AdvReac Type Severity Reaction Status Date / Time No Known Allergies (No Known Allergy Verified 03/19/25 04:28 Allergies*) Review of Systems Review of Systems: Yes all other systems are reviewed and are negative Constitutional: Constitutional: Reports chills, Reports fatigue, Denies fever(s), Reports headache(s) and Reports malaise ENT: Denies dizziness and Reports headache(s) Cardiovascular: Cardiovascular: Denies chest pain and Denies dyspnea Respiratory: Respiratory: Denies cough and Denies dyspnea Gastrointestinal: Gastrointestinal: Reports nausea and Reports vomiting Musculoskeletal: Musculoskeletal: Reports myalgias Neurologic: Denies dizziness and Reports headache(s) Endocrine: Endocrine: Reports fatigue PMFSH Past Medical History Attestation statement: The following information was validated with the patient. Medical History Migraines No known health problems Social History Social History Alcohol intake: never Patient Tobacco Use Status: Current everyday Tobacco user Substance Use Type: Marijuana Advance Directives: No Advance Directives Information Provided: Yes Physical Exam ED Vital Signs: Vital Signs - 24 hr 03/19/25 04:25 03/19/25 05:42 03/19/25 05:42 Temperature 97.7 F 97.8 F 97.8 F Pulse Rate 70 74 74 Respiratory Rate 20 15 15 Blood Pressure 129/84 122/88 122/88 Pulse Oximetry 100 98 98 Oxygen Delivery Method Room Air Room Air Room Air BMI result Body Mass Index 30.2 Const Other: Sleeping, easily woken with verbal stimuli Orientation/consciousness: patient oriented x3 Resp Effort & Inspection: normal respiratory effort Cardio Other: Normal peripheral perfusion Skin Other: Warm dry no rash Neuro General: patient oriented x3, gait normal, no focal motor deficits and CN's II- XI intact bilaterally Psych Other: Cooperative Medications Administered Discontinued Medications Generic Name Dose Route Start Last Admin Trade Name Freq PRN Reason Stop Dose Admin Ondansetron HCl 8 mg 03/19/25 05:31 03/19/25 05:41 Ondansetron Odt 8 Mg Tab.Layne CARRERA 03/19/25 05:32 8 mg ONCE ONE Administration Medical Decision Making Medical Decision Making [facility] Narrative: 39-year-old male with a history of migraines presents with viral syndrome. Patient states he woke this morning with generalized myalgia, malaise, headache, chills, weakness nausea vomiting. Unknown if he has sick contacts with similar symptoms. No fever. Problem: Migraine History: Per patient I have considered the following differential diagnoses: Viral syndrome Plan: Viral panel ordered from triage it was negative. The patient could still be developing influenza, it has been prevalent within the community. We will send with some antiemetic and a work note. I have independently reviewed the following tests: Labs: Viral panel negative Differential Diagnosis Differential Diagnoses: The differential diagnosis associated with the presentation includes See [facility] Admission/Observation Consideration of admission/observation: Escalation of care including a dmission/observation considered Not applicable Lab Data [facility] Lab Attestation statement: I reviewed the patient's lab results. Labs: Lab Results 03/19/25 Range/Units 04:30 COVID-19 (GIO) Negative (Negative) COVID-19 Clin Com See Note Influenza Type A (CRISTINA) Negative (Negative) Influenza Type B (CRISTINA) Negative (Negative) Influenza A & B Note See Note Discharge Plan Discharge Clinical Impression: Viral infection Patient Disposition: Home, Self-Care Instructions: Viral Syndrome (ED) Additional Instructions: You likely have a virus causing your symptoms. See home care instructions. Influenza has been circulating within the community. Uses Zofran as needed for nausea. We did test you for influenza RSV and COVID. However it is possible to have a false negative test. Follow up with primary care as needed Prescriptions: New ondansetron 4 mg tablet,disintegrating 4 mg PO Q8H PRN (Reason: nausea and vomiting) Qty: 15 0RF No Action diphenhydramine HCl [Benadryl] 25 mg capsule 25 mg PO TID PRN (Reason: sleep) Qty: 14 0RF ketorolac 10 mg tablet 10 mg PO Q8H PRN (Reason: pain) Qty: 10 0RF Rx Instructions: Given 1st dose in the ED metoclopramide HCl [Reglan] 10 mg tablet 10 mg PO Q6H PRN (Reason: nausea and vomiting) Qty: 15 0RF amoxicillin-pot clavulanate 875-125 mg tablet 1 tab PO BID 10 Days Qty: 20 0RF Colace Clear 50 mg capsule 50 mg PO BID Qty: 14 0RF polyethylene glycol 3350 [Miralax] 17 gram powder in packet 17 g PO BID Qty: 14 0RF ondansetron 4 mg tablet,disintegrating 4 mg PO Q8H Qty: 14 0RF metoclopramide HCl [Reglan] 5 mg tablet 5 mg PO BID PRN (Reason: nausea and vomiting) Qty: 10 0RF sumatriptan succinate 50 mg tablet 50 mg PO Q2-4H PRN (Reason: migraine headache) Qty: 10 0RF Rx Instructions: do not exceed 4 doses per 24 hrs acetaminophen [Tylenol 8 Hour] 650 mg tablet extended release 650 mg PO Q8H PRN (Reason: pain) Qty: 20 0RF ondansetron 4 mg tablet,disintegrating 4 mg PO Q6H PRN (Reason: nausea and vomiting) Qty: 10 0RF metoclopramide HCl [Reglan] 10 mg tablet 10 mg PO Q6H PRN (Reason: nausea and vomiting) Qty: 10 0RF ntfsazptoi-cegsrdsyfxawk-qpzm [Fioricet] 50-300-40 mg capsule 1 cap PO Q8H PRN (Reason: pain) Qty: 10 0RF ondansetron 4 mg tablet,disintegrating 4 mg PO Q8H PRN (Reason: nausea and vomiting) Qty: 20 0RF ondansetron 4 mg tablet,disintegrating 4 mg PO Q8H PRN (Reason: nausea and vomiting) Qty: 10 0RF Stand Alone Forms: Work/School Release Interventions: ED Discharge Assessment Last Done: 03/19/25 05:42 Discharge Date/Time: 03/19/25 05:43 Print Language: Marshallese
[2025-03-19 05:42] VITALS: BP 122/88; PULSE 74; RESP 15; TEMP 36.6; O2SAT 98
== END 2025-03-19 05:43 | disposition home or self-care (01) ==
PROVIDERS: Emergency Provider Emergency Medicine
DX: B34.9 Viral infection, unspecified (principal); E86.0 Dehydration; M79.10 Myalgia, unspecified site; R51.9 Headache, unspecified; R11.2 Nausea with vomiting, unspecified; F17.210 Nicotine dependence, cigarettes, uncomplicated; Z03.818 Encounter for observation for suspected exposure to other biological agents ruled out
CPT/HCPCS: 87502; 87635; 99282